=== PATIENT | male | born 1990 ===

== ENCOUNTER 2020-04-14 19:10 | Emergency (ER) | payer MEDICAID, OTHER, SELFPAY ==
[2020-04-14 19:15] VITALS: BP 109/75; PULSE 79; RESP 19; TEMP 36.9; O2SAT 98; BMI 30.8
--- NOTE | 2020-04-14 20:14 | ECG_ITS ---
Test Reason : DIZZINESS Blood Pressure : / mmHG Vent. Rate : 072 BPM Atrial Rate : 072 BPM P-R Int : 158 ms QRS Dur : 088 ms QT Int : 376 ms P-R-T Axes : 058 039 011 degrees QTc Int : 411 ms Normal sinus rhythm Normal ECG When compared with ECG of 22-JUN-2014 19:03, No significant change was found Referred By: Tremayne Melo Electronically Signed By:MARISABEL GONZALEZ
--- NOTE | 2020-04-14 20:14 | CT_ITS ---
EXAMINATION: CT HEAD WITHOUT CONTRAST CLINICAL INFORMATION: Dizziness. COMPARISON: CT head 03/05/2014 TECHNIQUE: Contiguous axial imaging was performed from the skull base to vertex without intravenous administration of contrast. Coronal and sagittal reformatted images are performed at the CT scanner. [This CT examination was performed using dose optimization techniques as appropriate, variously including the following: *Automated exposure control *Adjustment of mA and/or kV according to patient size (this includes techniques or standardized protocols for targeted exams where dose is matched to indication/reason for exam; i.e. extremities or head) *Use of iterative reconstruction technique] DLP: 922 mGy-cm. FINDINGS: There is no evidence of acute intracranial hemorrhage or territorial infarction. No abnormal mass-effect or midline shift is seen. Cruz to white matter differentiation is well preserved. No extra-axial fluid collections are identified. The ventricles are normal in size. There is no abnormal attenuation within the brain parenchyma. There is no osseous abnormality. The mastoid air cells and visualized portions of the paranasal sinuses are well-aerated. CT/CT head/brain wo con IMPRESSION: No acute intracranial pathology.
--- NOTE | 2020-04-14 20:23 | ED.GENADULT ---
HPI - General Adult General Chief complaint: Dizziness Stated complaint: not feeling well Source: patient Mode of arrival: ambulatory Limitations: no limitations History of Present Illness HPI narrative: Patient presents to ED for multiple complaints. Patient states patient states he has been under lot of stress. Patient states he has not slept well for the past 2 weeks. Patient states he from his of 13 years and he has not been able to sleep more than 3 hours a night. Patient states he is not eating and no longer going to gym. Patient states he feels stressed and today he started feeling dizzy. Patient describes dizziness as the room spinning. Patient then states while talking to his she told him some bad news from his and then he passed out couple of seconds and return to consciousness. Denies any significant medical history. Patient states symptoms occurred around 12:00pm. Related Data Previous Rx's Medication Instructions Recorded meclizine 25 mg PO DAILY #20 tab 04/14/20 Allergies Allergy/AdvReac Type Severity Reaction Status Date / Time No Known Allergies Allergy Unverified 12/11/19 18:43 Review of Systems Review of Systems: Yes all other systems are reviewed and are negative Constitutional: Constitutional: Reports as per HPI and Reports no additional constitutional complaints Eyes: Eyes: Reports as per HPI and Reports no additional eye complaints ENT: Reports system reviewed and no additional complaints, except as documented, Reports as per HPI and Reports dizziness Cardiovascular: Cardiovascular: Reports as per HPI and Reports no additional cardiovascular complaints Respiratory: Respiratory: Reports as per HPI and Reports no additional respiratory complaints Gastrointestinal: Gastrointestinal: Reports as per HPI and Reports no additional gastrointestinal complaints Genitourinary: Genitourinary: Reports no additional male genitourinary complaints and Reports as per HPI Musculoskeletal: Musculoskeletal: Reports no additional musculoskeletal complaints and Reports as per HPI Neurologic: Reports system reviewed and no additional complaints, except as documented, Reports as per HPI and Reports dizziness Psychiatric: Psychiatric: Reports no additional psychiatric complaints and Reports as per HPI [facility] Social History Social History Alcohol intake: never Smoking Status: Never smoker Use of substances other than those prescribed or required for medical reasons: No Advance Directives: No Advance Directives Information Provided: No Physical Exam Vital Signs: Vital Signs: Last Vital Signs Temp 98.3 F 04/14/20 22:30 Pulse 75 04/14/20 22:30 Resp 20 04/14/20 22:30 BP 122/69 04/14/20 22:30 Pulse Ox 98 04/14/20 22:30 Body Mass Index 30.8 Const: General: cooperative, healthy appearing, comfortable, no acute distress, well developed, alert, awake and Physically active Orientation/consciousness: patient oriented x3 HENMT: Head: Yes normal to inspection and Yes No palpable skull fracture present Eyes: Other: positive for left horizontal nystagmus Neck: Neck: Yes normal visual inspection, Yes full ROM, Yes no lymphadenopathy, Yes no meningeal signs, Yes trachea midline, Yes supple and No tender Chest: Chest palpation & inspection: normal inspection of the chest and normal palpation of entire chest wall Resp: Effort & Inspection: normal respiratory effort and able to speak in complete sentences Auscultation: clear to auscultation bilaterally Cardio: Jugular venous distension: no JVD Heart sounds: S1 normal heart sound present and S2 normal heart sound present GI: Inspection: Yes normal to inspection Palpation (GI): Soft to palpation, not firm, nontender, no guarding and not rigid : General: No CVA tenderness and Yes no CVA tenderness Back/Spine/Pelvis: Back: no CVA tenderness, No CVA tenderness and No back tenderness Skin: General skin exam: no rashes or lesions noted and elasticity normal Neuro: Other: Negative for facial droop. Negative for slurred speech. Negative pronator drift. Normal gait. Motor strength of all extremities 5+ and equal. Negative Romberg General: patient oriented x3, gait normal, no meningeal signs and CN's II-XI intact bilaterally Cranial nerves: Yes CN's II-XII intact bilaterally Extrem: General: Yes normal to inspection and Yes full ROM Psych: Appearance: grossly normal, well kempt and not disheveled Course Course Course Narrative: History physical exam indicate vasovagal syncope. But due to physical exam of nystagmus will do basic labs and head CT machine is no mass or bleeding although very unlikely. Negative for neuro deficit. Patient also received fluids orthostatics done. COVID swab will be ordered. Reevaluation(s) Reevaluation #1: Patient feels better after fluids and meclizine. Head CT scan negative for any bleed or stroke. Troponin 6 hours after dizziness and syncope is negative. D-dimer negative PERC score 0. COVID swab negative. Patient safe for discharge. Patient was offered to speak to care team freight traffic consultant for outpatient referral for depression, but patient refused. Patient is not suicidal or homicidal. Orthostatics negative. Time: 22:58 Medical Decision Making MDM Narrative Medical decision making narrative: Vasovagal syncope, dizziness, vertigo Lab Data Result diagrams: 04/14/20 20:38 04/14/20 20:38 Labs: Lab Results 04/14/20 04/14/20 04/14/20 Range/Units 20:38 20:38 20:38 WBC 6.8 (4.8-10.8) X10*3/uL RBC 5.87 H (4.60-5.80) X10*6/uL Hgb 16.5 (14.0-18.0) g/dl Hct 48.0 (42-52) % MCV 81.8 (80-98) fL MCH 28.1 (27.0-33.0) pg MCHC 34.4 (31.0-36.0) g/dl RDW 12.7 (11.0-16.0) % Plt Count 314 (160-400) X10*3/uL MPV 9.2 L (9.4-12.4) fL Immature Gran % (Auto) 0.1 (0.0-0.4) % Neut % (Auto) 67.1 (45-73) % Lymph % (Auto) 22.0 (20-40) % [place] % (Auto) 8.6 (2-11) % Eos % (Auto) 1.5 (0-4) % Baso % (Auto) 0.7 (0-2) % Lymph # (Auto) 1.5 (1.2-4.9) X10*3/uL [place] # (Auto) 0.6 (0.1-1.2) X10*3/uL Eos # (Auto) 0.1 (0.0-0.4) X10*3/uL Baso # (Auto) 0.1 (0.0-0.2) X10*3/uL Abs Immat Gran (auto) 0.01 (0.00-0.03) X10*3/uL Absolute Neuts (auto) 4.5 (2.0-8.3) X10*3/uL Absolute Nucleated RBC 0.000 (0.0-0.012) X10*3/uL Nucleated RBC % (auto) 0.0 (0.0-0.2) /100WBC PT 12.9 (10.8-13.0) SEC INR 1.1 (0.9-1.1) APTT 35.3 (24.1-38.0) SEC D-Dimer < 200 NG/ML Sodium 137 (135-145) mmol/L Potassium 4.5 (3.3-5.1) mmol/l Chloride 99 (96-108) mmol/L Carbon Dioxide 30 H (22-29) mmol/L Anion Gap 13 (12-20) BUN 10 (9-16) mg/dL Creatinine 1.01 (0.5-1.4) mg/dL Estim Creat Clear Calc 139.1 Estimated GFR > 60 Random Glucose 107 (60-115) mg/dL Calcium 9.5 (8.4-10.2) mg/dL Magnesium 1.9 (1.6-2.6) mg/dL Total Bilirubin 0.9 (0.0-1.0) mg/dL AST 25 (5-37) U/L ALT 30 (0-40) U/L Alkaline Phosphatase 41 (39-117) U/L Troponin I High Sens (<3.5-35.0) ng/L Total Protein 7.4 (6.5-8.0) g/dL Albumin 4.6 (3.5-5.0) g/dL Ethyl Alcohol mg/dL Coronavirus (PCR) (Negative) Influenza Type A (PCR) (Negative) Influenza Type B (PCR) (Negative) RSV RNA Qual (PCR) (Negative) 04/14/20 04/14/20 04/14/20 Range/Units 20:38 20:38 20:38 WBC (4.8-10.8) X10*3/uL RBC (4.60-5.80) X10*6/uL Hgb (14.0-18.0) g/dl Hct (42-52) % MCV (80-98) fL MCH (27.0-33.0) pg MCHC (31.0-36.0) g/dl RDW (11.0-16.0) % Plt Count (160-400) X10*3/uL MPV (9.4-12.4) fL Immature Gran % (Auto) (0.0-0.4) % Neut % (Auto) (45-73) % Lymph % (Auto) (20-40) % [place] % (Auto) (2-11) % Eos % (Auto) (0-4) % Baso % (Auto) (0-2) % Lymph # (Auto) (1.2-4.9) X10*3/uL [place] # (Auto) (0.1-1.2) X10*3/uL Eos # (Auto) (0.0-0.4) X10*3/uL Baso # (Auto) (0.0-0.2) X10*3/uL Abs Immat Gran (auto) (0.00-0.03) X10*3/uL Absolute Neuts (auto) (2.0-8.3) X10*3/uL Absolute Nucleated RBC (0.0-0.012) X10*3/uL Nucleated RBC % (auto) (0.0-0.2) /100WBC PT (10.8-13.0) SEC INR (0.9-1.1) APTT (24.1-38.0) SEC D-Dimer NG/ML Sodium (135-145) mmol/L Potassium (3.3-5.1) mmol/l Chloride (96-108) mmol/L Carbon Dioxide (22-29) mmol/L Anion Gap (12-20) BUN (9-16) mg/dL Creatinine (0.5-1.4) mg/dL Estim Creat Clear Calc Estimated GFR Random Glucose (60-115) mg/dL Calcium (8.4-10.2) mg/dL Magnesium (1.6-2.6) mg/dL Total Bilirubin (0.0-1.0) mg/dL AST (5-37) U/L ALT (0-40) U/L Alkaline Phosphatase (39-117) U/L Troponin I High Sens < 3.5 (<3.5-35.0) ng/L Total Protein (6.5-8.0) g/dL Albumin (3.5-5.0) g/dL Ethyl Alcohol < 10 mg/dL Coronavirus (PCR) NEGATIVE (Negative) Influenza Type A (PCR) NEGATIVE (Negative) Influenza Type B (PCR) NEGATIVE (Negative) RSV RNA Qual (PCR) NEGATIVE (Negative) ECG Data Interpretation: Normal sinus rhythm. Ventricular rate 72. [place] interval 158. QRS duration 88. QTC 411. Negative STEMI Discharge Plan Discharge Clinical Impression: Vasovagal syncope, Dizziness, Vertigo Patient Disposition: Home, Self-Care Instructions: Vertigo (ED), Syncope (ED), Dizziness (ED) Additional Instructions: Return to the ED immediately headache, dizziness, chest pain, shortness of breath, slurred speech, loss of vision, paralysis, suicidal/homicidal ideation, or any other concerning symptoms. Prescriptions: New meclizine 25 mg tablet 25 mg PO DAILY Qty: 20 RF: 0 Interventions: ED Discharge Assessment Last Done: 04/14/20 23:24 Discharge Date/Time: 04/14/20 23:26 Print Language: Panamanian
[2020-04-14] MEDS: 0.9 % Sodium Chloride 1,000 ML 999 ML IV ×2 (20:44→22:05)
[2020-04-14 20:50] LABS: Basophils Absolute Auto 0.1 X10*3/uL (0.0-0.2); Basophils Percent Auto 0.7 % (0-2); Eosinophils Absolute Auto 0.1 X10*3/uL (0.0-0.4); Eosinophils Percent Auto 1.5 % (0-4); Hemoglobin 16.5 g/dl (14.0-18.0); Imm Gran Abs Auto 0.01 X10*3/uL (0.00-0.03); Imm Gran Pct Auto 0.1 % (0.0-0.4); Lymphocytes Absolute Auto 1.5 X10*3/uL (1.2-4.9); MANUAL DIFF FLAG NO; Mean Corpuscular HGB Conc 34.4 g/dl (31.0-36.0); Mean Corpuscular Hemoglobin 28.1 pg (27.0-33.0); Mean Corpuscular Volume 81.8 fL (80-98); Mean Platelet Volume 9.2 fL (9.4-12.4); Monocytes Absolute Auto 0.6 X10*3/uL (0.1-1.2); Monocytes Percent Auto 8.6 % (2-11); Neutrophils Absolute Auto 4.5 X10*3/uL (2.0-8.3); Neutrophils Percent Auto 67.1 % (45-73); Platelet Count 314 X10*3/uL (160-400); Red Blood Count 5.87 X10*6/uL (4.60-5.80); Red Cell Distribution Width 12.7 % (11.0-16.0); White Blood Count 6.8 X10*3/uL (4.8-10.8)
[2020-04-14 20:56] LABS: INTERNATIONAL NORM RATIO 1.1 (0.9-1.1); Prothrombin Time 12.9 SEC (10.8-13.0)
[2020-04-14 20:58] LABS: Partial Thromboplastin Time 35.3 SEC (24.1-38.0)
[2020-04-14 21:01] LABS: D Dimer < 200 NG/ML
[2020-04-14 21:08] LABS: Ethanol < 10 mg/dL
[2020-04-14 21:10] LABS: Alanine Aminotransferase 30 U/L (0-40); Albumin Level 4.6 g/dL (3.5-5.0); Alkaline Phosphatase 41 U/L (39-117); Anion Gap 13 (12-20); Aspartate Amino Transferase 25 U/L (5-37); Bilirubin Total 0.9 mg/dL (0.0-1.0); Blood Urea Nitrogen 10 mg/dL (9-16); Calcium 9.5 mg/dL (8.4-10.2); Carbon Dioxide 30 mmol/L (22-29); Chloride 99 mmol/L (96-108); Creatinine Clr Calc Pharmacy 139.1; Estimated Glomerular Filt Rate > 60; Glucose Random 107 mg/dL (60-115); Magnesium 1.9 mg/dL (1.6-2.6); Potassium 4.5 mmol/l (3.3-5.1); Sodium 137 mmol/L (135-145); Total Protein 7.4 g/dL (6.5-8.0)
[2020-04-14 21:17] LABS: Troponin-I High Sensitivity < 3.5 ng/L (<3.5-35.0)
[2020-04-14 21:30] LABS: Influenza A PCR NEGATIVE (Negative); Influenza B PCR NEGATIVE (Negative); Resp Syncy Virus RNA Qual PCR NEGATIVE (Negative); SARS COV2 PCR INHOUSE NEGATIVE (Negative)
[2020-04-14 22:25] VITALS: BP 122/69; BP 123/77; PULSE 74; PULSE 78
[2020-04-14 22:28] VITALS: BP 121/83; PULSE 83
[2020-04-14 22:30] VITALS: BP 122/69; PULSE 75; RESP 20; TEMP 36.8; O2SAT 98
[2020-04-14] MEDS: Meclizine HCl 25 MG TABLET PO (23:15)
== END 2020-04-14 23:26 | disposition home or self-care (01) ==
PROVIDERS: Physician Assistant; Emergency Provider Internal Medicine
DX: R55 Syncope and collapse (principal); R42 Dizziness and giddiness; Z79.899 Other long term (current) drug therapy; Z20.822 Contact with and (suspected) exposure to COVID-19
CPT/HCPCS: 0241U; 36415; 70450; 80053; 80320; 83735; 84484; 85025; 85379; 85610; 85730; 93005; 96360; 99284

== ENCOUNTER 2021-03-31 00:27 | Emergency (ER) | payer MEDICAID, SELFPAY ==
--- NOTE | ~2021-03-31 | XR_ITS ---
EXAMINATION: LUMBAR SPINE AND RIGHT HIP. CLINICAL INFORMATION: History of fall. COMPARISON: None TECHNIQUE: 3 views AP pelvis and right hip. 3 views lumbar spine. FINDINGS: LUMBAR SPINE: There is mild straightening of lumbar lordosis. The vertebral heights, alignment and disc heights are normal. No visible acute fracture, dislocation or lytic process seen. SI joints are symmetrical and normal. The paravertebral soft tissues are normal. AP PELVIS AND RIGHT HIP: There is normal symmetry of bilateral hip joints and SI joints. No visible acute fracture, dislocation or lytic process seen. The soft tissues are normal. XR/XR hip RT w PEL1V IMPRESSION: Unremarkable lumbar spine exam. Unremarkable AP pelvis and right hip exam.
--- NOTE | ~2021-03-31 | XR_ITS ---
EXAMINATION: LUMBAR SPINE AND RIGHT HIP. CLINICAL INFORMATION: History of fall. COMPARISON: None TECHNIQUE: 3 views AP pelvis and right hip. 3 views lumbar spine. FINDINGS: LUMBAR SPINE: There is mild straightening of lumbar lordosis. The vertebral heights, alignment and disc heights are normal. No visible acute fracture, dislocation or lytic process seen. SI joints are symmetrical and normal. The paravertebral soft tissues are normal. AP PELVIS AND RIGHT HIP: There is normal symmetry of bilateral hip joints and SI joints. No visible acute fracture, dislocation or lytic process seen. The soft tissues are normal. XR/XR lumbar spine 2-3V IMPRESSION: Unremarkable lumbar spine exam. Unremarkable AP pelvis and right hip exam.
--- NOTE | ~2021-03-31 | XR_ITS ---
EXAMINATION: XR CHEST CLINICAL INFORMATION: Right chest wall pain COMPARISON: 05/25/2015 TECHNIQUE: 2 views of the chest were obtained. FINDINGS: Normal symmetric lung volumes. No parenchymal consolidation. No pleural effusion. No pneumothorax. Cardiomediastinal silhouette and pulmonary vascularity are within normal limits. No acute osseous abnormalities. XR/XR chest 2V IMPRESSION: No acute findings
[2021-03-31 00:58] VITALS: BP 146/87; PULSE 114; RESP 20; TEMP 37.3; O2SAT 95; BMI 41.7
[2021-03-31 06:21] VITALS: BP 106/58; PULSE 78; RESP 20; O2SAT 98
--- NOTE | 2021-03-31 06:44 | ED_ITS ---
HPI - Back Pain/Injury General Chief Complaint: Back Pain/Injury Stated Complaint: Fall down stairs Time Seen by Provider: 03/31/21 04:25 Source: patient Mode of arrival: ambulatory Limitations: no limitations History of Present Illness HPI Narrative: 30-year-old male presents to the department for hours after falling states he was going down the steps at his house fell backwards onto his buttocks. He states he has pain right. He denies fevers chills cough nausea vomiting or having walking having more difficult time sleeping he is not taking anything for the pain. MD elicited complaint: back pain and fall Pertinent past history: recent trauma Related Data Previous Rx's Medication Instructions Recorded meclizine 25 mg tablet 25 mg PO DAILY #20 tab 04/14/20 acetaminophen 325 mg tablet 325 mg PO QID PRN #90 tab 03/31/21 (Tylenol) cyclobenzaprine 5 mg tablet 5 mg PO BEDTIME PRN #20 tab 03/31/21 ibuprofen 400 mg tablet 400 mg PO Q6H PRN #60 tab 03/31/21 lidocaine 5 % topical patch 1 patch TOPICAL DAILY #30 ea 03/31/21 Allergies Allergy/AdvReac Type Severity Reaction Status Date / Time No Known Allergies Allergy Unverified 12/11/19 18:43 Review of Systems Review of Systems: Review of systems: General: Patient denies any fever chills recent illness or falls Musculoskeletal: Back pain denies body aches or other injuries HEENT: denies headache, runny nose, ear pain Respiratory: denies shortness of breath, cough Cardiovascular: no chest pain or palpitations : denies dysuria, frequency Abdomen: no nausea vomiting denies abdominal pain Extremities: no swelling, no pain Skin: no diaphoresis Yes all other systems are reviewed and are negative [facility] Social History Social History Alcohol intake: never Advance Directives: No Advance Directives Information Provided: Yes Physical Exam Vital Signs: Vital Signs: Last Vital Signs Temp 99.2 F 03/31/21 00:58 Pulse 78 03/31/21 06:21 Resp 20 03/31/21 06:21 BP 106/58 L 03/31/21 06:21 Pulse Ox 98 03/31/21 06:21 BMI result Body Mass Index 41.7 Neurological exam: CN II- XII tested. Patient is alert and oriented to person place and time. Patient has no dysphagia or dysarthia, denies good vision in all four vision ritter no nystagmus on exam, good strength to upper and lower extremities with normal reflexes to brachioradialis, wrist, patella and achilles. Negative romberg, good finger to nose and heel to welch. General: Well-appearing well-nourished in no signs of distress HEENT: Normocephalic atraumatic Neck: No signs of JVD, no masses no tenderness or lymphadenopathy Cardiovascular: Regular rate and rhythm Respiratory: Clear to auscultation bilaterally Abdomen: Soft nontender no masses Extremities: Normal pedal pulses no signs of edema Skin: Dry warm no rashes Back: No tenderness full ROM negative straight leg test normal reflex to lower extremity no signs of trauma to the back no tenderness to midline MDM - Back Pain/Injury MDM Narrative Medical decision making narrative: patient with the likely contusion to his back or hip idea next patient needs any imaging the patient is adamant that he needs to know exactly what is going home. I tried to explain to him that he has bruised his back using feels over the next few days he is not taking anything for pain of him some Tylenol and some Toradol and the patient referred x-ray if his right hip pelvis as well as his lumbar spine. Patient now sitting up is able to take his pants and feeling better after Tylenol and Toradol. 0814 XR are negative patient educated on need for follow up. Differential Diagnosis Differential diagnosis: Likely lumbar radiculopathy, sciatica and strain of lumbar region Discharge Plan Discharge Clinical Impression: Strain of lumbar region, Contusion of back Patient Disposition: Home, Self-Care Instructions: Acute Low Back Pain (ED), Contusion in Adults (ED), Back Pain (ED) Additional Instructions: Please use tylenol and ibuprofen for pain. If you have any other concerns please return to the ED. If you can't sleep then try the muscle relaxant Prescriptions: New acetaminophen [Tylenol] 325 mg tablet 325 mg PO QID PRN (Reason: pain) Qty: 90 RF: 0 lidocaine 5 % adhesive patch,medicated 1 patch topical DAILY Qty: 30 RF: 0 ibuprofen 400 mg tablet 400 mg PO Q6H PRN (Reason: Pain) Qty: 60 RF: 0 cyclobenzaprine 5 mg tablet 5 mg PO BEDTIME PRN (Reason: muscle spasm) Qty: 20 RF: 0 No Action meclizine 25 mg tablet 25 mg PO DAILY Qty: 20 RF: 0
--- NOTE | 2021-03-31 06:48 | PC.NURSE ---
at bedside for primary eval.
[2021-03-31] MEDS: Acetaminophen 325 MG TABLET 650 MG PO (06:55)
[2021-03-31] MEDS: Ketorolac Tromethamine 30 MG/ML VIAL 15 MG IM (06:55)
--- NOTE | 2021-03-31 06:58 | PC.NURSE ---
Pt medicated per MAY, aware of plan for lumbar XRay.
[2021-03-31] MEDS: Lidocaine 4 % Patch ADH..PATCH 1 PATCH TRANSDERMA (08:29)
[2021-03-31 09:28] VITALS: BP 142/90; PULSE 71; RESP 14; O2SAT 93
== END 2021-03-31 09:59 | disposition home or self-care (01) ==
PROVIDERS: Emergency Provider Student in an Organized Health Care Education/Training Program
DX: S39.012A Strain of muscle, fascia and tendon of lower back, initial encounter (principal); S30.0XXA Contusion of lower back and pelvis, initial encounter; W10.8XXA Fall (on) (from) other stairs and steps, initial encounter; Y93.9 Activity, unspecified; Y92.038 Other place in apartment as the place of occurrence of the external cause; Y99.9 Unspecified external cause status
CPT/HCPCS: 71046; 72100; 73502; 96372; 99283; 99284; J1885

== ENCOUNTER 2022-09-18 00:33 | Emergency (ER) | payer MEDICAID, SELFPAY ==
--- NOTE | ~2022-09-18 | CT_ITS ---
EXAMINATION: CT ABDOMEN AND PELVIS WITHOUT CONTRAST CLINICAL INFORMATION: Epigastric pain COMPARISON: None available. TECHNIQUE: Multidetector volumetric imaging was performed from the superior aspect of the liver through the pubic symphysis. Sagittal and coronal reformatted images were obtained on the technologist's workstation. This CT examination was performed using dose optimization techniques as appropriate, variously including the following: *Automated exposure control *Adjustment of mA and/or kV according to patient size (this includes techniques or standardized protocols for targeted exams where dose is matched to indication/reason for exam; i.e. extremities or head) *Use of iterative reconstruction technique DLP: 1329 mGy-cm FINDINGS: LUNG BASES: There is platelike atelectasis left lung base. The heart size is normal. LIVER, GALLBLADDER, AND BILIARY TREE: The liver is normal in size, shape, and attenuation. There is hypodense tissue surrounding the gallbladder and the liver likely fatty infiltration. No focal solid hepatic lesion or intrahepatic ductal dilatation seen. The gallbladder is unremarkable with no evidence of radiopaque gallstones, gallbladder wall thickening, or obvious pericholecystic inflammatory changes. PANCREAS: Unremarkable. SPLEEN: Unremarkable. ADRENAL GLANDS: Unremarkable. KIDNEYS AND URETERS: The kidneys are normal in size, shape, and attenuation. No hydronephrosis, hydroureter, or calculi seen. No perinephric stranding. BLADDER: Unremarkable. GASTROINTESTINAL TRACT: There is scattered stool and gas seen throughout the colon without distention. The small bowel loops are normal caliber. Appendix is not visualized. ABDOMINAL WALL: No bony abnormality seen. LYMPH NODES: Again visualized is a left upper quadrant mass likely arising from the spleen. Versus malignant. Mild colonic diverticulosis without diverticulitis VASCULAR: Unremarkable. PELVIC VISCERA: No aggressive lytic or sclerotic process seen. Mild ventral spondylosis L4-L5 disc level. OSSEOUS STRUCTURES: Unremarkable. CT/CT abdomen pelvis wo IV con IMPRESSION: No visible radiopaque stone or hydroureteronephrosis. No abnormality seen in the epigastric region. Fleischner guidelines were followed.
--- NOTE | 2022-09-18 00:35 | ECG_ITS ---
Test Reason : CHEST PAIN Blood Pressure : / mmHG Vent. Rate : 080 BPM Atrial Rate : 000 BPM P-R Int : 000 ms QRS Dur : 092 ms QT Int : 370 ms P-R-T Axes : 000 022 011 degrees QTc Int : 426 ms Artifact in tracing Normal sinus rhythm probably normal EKG When compared with ECG of 14-APR-2020 21:06, No significant changes seen Referred By: Generic ED Physician Electronically Signed By:MARISABEL GONZALEZ
[2022-09-18 00:49] VITALS: BP 188/119; PULSE 81; RESP 18; TEMP 36.4; O2SAT 96; BMI 43.6
[2022-09-18 01:09] VITALS: BP 196/128; PULSE 80; PULSE 81; RESP 25; TEMP 36.7; O2SAT 98
[2022-09-18 01:12] LABS: MANUAL DIFF FLAG NO
[2022-09-18 01:13] LABS: Basophils Absolute Auto 0.1 X10*3/uL (0.0-0.2); Basophils Percent Auto 1.4 % (0-2); Eosinophils Absolute Auto 0.3 X10*3/uL (0.0-0.4); Eosinophils Percent Auto 5.1 % (0-4); Hematocrit 45.7 % (42.0-52.0); Hemoglobin 16.2 g/dl (14.0-18.0); Imm Gran Abs Auto 0.02 X10*3/uL (0.00-0.03); Imm Gran Pct Auto 0.3 % (0.0-0.4); Lymphocytes Absolute Auto 1.9 X10*3/uL (1.2-4.9); Lymphocytes Percent Auto 28.4 % (20-40); Mean Corpuscular HGB Conc 35.4 g/dl (31.0-36.0); Mean Corpuscular Hemoglobin 28.4 pg (27.0-33.0); Mean Platelet Volume 9.6 fL (9.4-12.4); Monocytes Absolute Auto 0.7 X10*3/uL (0.1-1.2); Monocytes Percent Auto 10.1 % (2-11); Neutrophils Absolute Auto 3.6 x10*3/uL (2.0-8.3); Neutrophils Percent Auto 54.7 % (45-73); Platelet Count 299 X10*3/uL (160-400); Red Blood Count 5.71 X10*6/uL (4.60-5.80); White Blood Count 6.7 X10*3/uL (4.8-10.8)
--- NOTE | 2022-09-18 01:21 | PC.NURSE ---
Assumed care of PT. PT endorsing RUQ pain 10/10. Previously noted in traige chest pain, but now denies. PT notes that he drinks 8 bottles of whiskey every month. BP 196/128 HR 80. aware.
[2022-09-18 01:26] LABS: Alanine Aminotransferase 145 U/L (0-40); Albumin Level 4.3 g/dL (3.5-5.0); Alkaline Phosphatase 46 U/L (39-117); Anion Gap 15 (12-20); Aspartate Amino Transferase 60 U/L (5-37); Bilirubin Total 0.7 mg/dL (0.0-1.0); Blood Urea Nitrogen 14 mg/dL (9-16); Calcium 9.7 mg/dL (8.4-10.2); Carbon Dioxide 24 mmol/L (22-29); Chloride 105 mmol/L (96-108); Creatinine Clr Calc Pharmacy 168.4; Estimated Glomerular Filt Rate > 60; Glucose Random 129 mg/dL (60-115); Potassium 4.3 mmol/L (3.3-5.1); Sodium 140 mmol/L (135-145); Total Protein 7.4 g/dL (6.5-8.0)
[2022-09-18 01:32] LABS: Troponin-I High Sensitivity 6.1 ng/L (<3.5-35.0)
--- NOTE | 2022-09-18 02:58 | ED.CHESTPAIN ---
HPI - Chest Pain General Chief Complaint: Chest Pain Stated Complaint: cp/heart pain Time Seen by Provider: 09/18/22 01:07 History of Present Illness HPI narrative: Patient is a 32-year-old male present today with having questionable chest pain. The pain lasts a few minutes is not associated with any shortness of breath. Patient does have a history of borderline prediabetes. He has not had follow-up for this. He is also overweight. Question history of hypertension. Positive history of vaping. Never had a heart attack never had a stroke. Patient also complaining of abdominal pain. The abdominal pain is over the right upper quadrant, epigastric area. It is fairly constant. Patient states that he drinks 10 bottles of whiskey per month. No fever no chills. No bloody stool. No vomiting. Patient from home. No abdominal surgery done in the past. Related Data Previous Rx's Medication Instructions Recorded meclizine 25 mg tablet 25 mg PO DAILY dizziness #20 tabs 04/14/20 acetaminophen 325 mg tablet 325 mg PO QID PRN pain #90 tabs 03/31/21 (Tylenol) cyclobenzaprine 5 mg tablet 5 mg PO BEDTIME PRN muscle spasm 03/31/21 #20 tabs ibuprofen 400 mg tablet 400 mg PO Q6H PRN Pain #60 tabs 03/31/21 lidocaine 5 % topical patch 1 patch topical DAILY back pain 03/31/21 #30 ea pantoprazole 40 mg tablet,delayed 40 mg PO DAILY #14 tabs 09/18/22 release (Protonix) Allergies Allergy/AdvReac Type Severity Reaction Status Date / Time No Known Allergies Allergy Unverified 09/18/22 01:01 Review of Systems Review of Systems: Positive abdominal pain Yes all other systems are reviewed and are negative [facility] Past Medical History Attestation statement: The following information was validated with the patient. Social History Social History Alcohol intake: current Alcohol intake frequency: 3 or more drinks per day Alcohol type: hard liquor Smoked in Last 30 Days: Yes Use of substances other than those prescribed or required for medical reasons: No Advance Directives: No Advance Directives Information Provided: Yes Physical Exam Vital Signs: Vital Signs: Last Vital Signs Temp 98.0 F 09/18/22 01:09 Pulse 82 09/18/22 03:03 Resp 14 09/18/22 03:03 BP 166/109 H 09/18/22 03:03 Pulse Ox 97 09/18/22 03:03 O2 Del Method Room Air 09/18/22 03:03 BMI result Body Mass Index 43.6 Appearance: Alert. Oriented X3. No acute distress. Eyes: Pupils equal, round and reactive to light. ENT: Pharynx normal. Neck: Normal inspection. Neck supple. No lymph nodes noted. No crepitus CVS: Normal heart rate and rhythm. Pulses normal. Normal S1 and S2 Respiratory: No respiratory distress. Breath sounds normal. No Wheezing. No rales Abdomen: Soft and nontender. No rigidity. No distention. good BS x4 Skin: Skin warm and dry. Normal skin color. Normal skin turgor. Extremities: No lower extremity edema. Neurovascular intact to all extremities. No Lacerations. No Rash Neuro: Oriented X 3. No motor deficit. No sensory deficit. Moving all extermities. No slurred speech Medical Decision Making Medical Decision Making MDM Narrative: patient presents today with having nonspecific chest pain. Two sets of cardiac enzymes negative. The patient is 32 years old. Does have a history of hypertension, history of vaping. My interpretation of his EKG showed a sinus pattern heart rate is 70 MA QRS QT within normal refers no acute ST segment elevation. Patient unlikely to have cardiac causes. Patient's lipase is normal no evidence for pancreatitis. LFTs are reflective of likely fatty liver. CT scan of the abdomen pelvis did not show any acute evidence of abscess, perforation, diverticulitis, appendicitis. Will discharge patient home on PPI. For patient follow-up with Cardiology on an outpatient basis. Will request patient to stop drinking alcohol. Differential Diagnosis Gastritis, ACS, obstruction, biliary issues, diverticulitis, appendicitis Lab Data [facility] Lab Attestation statement: I reviewed the patient's lab results. 09/18/22 01:03 09/18/22 01:03 Labs: Lab Results 09/18/22 09/18/22 09/18/22 Range/Units 01:03 01:03 01:03 WBC 6.7 (4.8-10.8) X10*3/uL RBC 5.71 (4.60-5.80) X10*6/uL Hgb 16.2 (14.0-18.0) g/dl Hct 45.7 (42.0-52.0) % MCV 80.0 (80.0-98.0) fL MCH 28.4 (27.0-33.0) pg MCHC 35.4 (31.0-36.0) g/dl RDW 13.0 (11.0-16.0) % Plt Count 299 (160-400) X10*3/uL MPV 9.6 (9.4-12.4) fL Immature Gran % (Auto) 0.3 (0.0-0.4) % Neut % (Auto) 54.7 (45-73) % Lymph % (Auto) 28.4 (20-40) % [place] % (Auto) 10.1 (2-11) % Eos % (Auto) 5.1 H (0-4) % Baso % (Auto) 1.4 (0-2) % Lymph # (Auto) 1.9 (1.2-4.9) X10*3/uL [place] # (Auto) 0.7 (0.1-1.2) X10*3/uL Eos # (Auto) 0.3 (0.0-0.4) X10*3/uL Baso # (Auto) 0.1 (0.0-0.2) X10*3/uL Abs Immat Gran (auto) 0.02 (0.00-0.03) X10*3/uL Absolute Neuts (auto) 3.6 (2.0-8.3) x10*3/uL Absolute Nucleated RBC 0.000 (0.0-0.012) X10*3/uL Nucleated RBC % (auto) 0.0 (0.0-0.2) /100WBC Sodium 140 (135-145) mmol/L Potassium 4.3 (3.3-5.1) mmol/L Chloride 105 (96-108) mmol/L Carbon Dioxide 24 (22-29) mmol/L Anion Gap 15 (12-20) BUN 14 (9-16) mg/dL Creatinine 0.97 (0.5-1.4) mg/dL Estim Creat Clear Calc 168.4 Estimated GFR > 60 Random Glucose 129 H (60-115) mg/dL Calcium 9.7 (8.4-10.2) mg/dL Total Bilirubin 0.7 (0.0-1.0) mg/dL AST 60 H (5-37) U/L ALT 145 H (0-40) U/L Alkaline Phosphatase 46 (39-117) U/L Troponin I High Sens 6.1 (<3.5-35.0) ng/L Total Protein 7.4 (6.5-8.0) g/dL Albumin 4.3 (3.5-5.0) g/dL Lipase 26 (8-78) U/L Ethyl Alcohol < 10 mg/dL 09/18/22 Range/Units 03:31 WBC (4.8-10.8) X10*3/uL RBC (4.60-5.80) X10*6/uL Hgb (14.0-18.0) g/dl Hct (42.0-52.0) % MCV (80.0-98.0) fL MCH (27.0-33.0) pg MCHC (31.0-36.0) g/dl RDW (11.0-16.0) % Plt Count (160-400) X10*3/uL MPV (9.4-12.4) fL Immature Gran % (Auto) (0.0-0.4) % Neut % (Auto) (45-73) % Lymph % (Auto) (20-40) % [place] % (Auto) (2-11) % Eos % (Auto) (0-4) % Baso % (Auto) (0-2) % Lymph # (Auto) (1.2-4.9) X10*3/uL [place] # (Auto) (0.1-1.2) X10*3/uL Eos # (Auto) (0.0-0.4) X10*3/uL Baso # (Auto) (0.0-0.2) X10*3/uL Abs Immat Gran (auto) (0.00-0.03) X10*3/uL Absolute Neuts (auto) (2.0-8.3) x10*3/uL Absolute Nucleated RBC (0.0-0.012) X10*3/uL Nucleated RBC % (auto) (0.0-0.2) /100WBC Sodium (135-145) mmol/L Potassium (3.3-5.1) mmol/L Chloride (96-108) mmol/L Carbon Dioxide (22-29) mmol/L Anion Gap (12-20) BUN (9-16) mg/dL Creatinine (0.5-1.4) mg/dL Estim Creat Clear Calc Estimated GFR Random Glucose (60-115) mg/dL Calcium (8.4-10.2) mg/dL Total Bilirubin (0.0-1.0) mg/dL AST (5-37) U/L ALT (0-40) U/L Alkaline Phosphatase (39-117) U/L Troponin I High Sens 4.7 (<3.5-35.0) ng/L Total Protein (6.5-8.0) g/dL Albumin (3.5-5.0) g/dL Lipase (8-78) U/L Ethyl Alcohol mg/dL Independent Interpretation I performed an independent interpretation of an: CT Scan Interpretation: grossly no obstruction no abscess no perforation Radiology Impression Discussion of test interpretation with radiology: I have reviewed the radiologist's reading. Chronic Conditions borderline diabetes, hypertension Discharge Plan Discharge Clinical Impression: Chest pain, Abdominal pain Patient Disposition: Home, Self-Care Instructions: Chest Pain (DC), Abdominal Pain (ED) Additional Instructions: please stop drinking alcohol. Prescriptions: New pantoprazole [Protonix] 40 mg tablet,delayed release (DR/EC) 40 mg PO DAILY Qty: 14 0RF No Action meclizine 25 mg tablet 25 mg PO DAILY Qty: 20 0RF acetaminophen [Tylenol] 325 mg tablet 325 mg PO QID PRN (Reason: pain) Qty: 90 0RF lidocaine 5 % adhesive patch,medicated 1 patch topical DAILY Qty: 30 0RF Rx Instructions: leave on most painful area for up to 12 hrs ibuprofen 400 mg tablet 400 mg PO Q6H PRN (Reason: Pain) Qty: 60 0RF cyclobenzaprine 5 mg tablet 5 mg PO BEDTIME PRN (Reason: muscle spasm) Qty: 20 0RF Referrals: [facility] [Physician] - 09/20/22 ( Blood pressure recheck in 48 hours) Benny Rouse MD [Physician] - 09/21/22 Print Language: Lao
[2022-09-18 03:03] VITALS: BP 166/109; PULSE 82; RESP 14; O2SAT 97
[2022-09-18 03:11] LABS: Ethanol < 10 mg/dL; Lipase 26 U/L (8-78)
[2022-09-18 03:58] LABS: Troponin-I High Sensitivity 4.7 ng/L (<3.5-35.0)
[2022-09-18 04:13] VITALS: BP 164/93; PULSE 78; RESP 18; TEMP 36.4; O2SAT 97
== END 2022-09-18 04:31 | disposition home or self-care (01) ==
PROVIDERS: Emergency Provider Emergency Medicine Emergency Medical Services
DX: R07.9 Chest pain, unspecified (principal); R10.13 Epigastric pain; I10 Essential (primary) hypertension; Z79.899 Other long term (current) drug therapy
CPT/HCPCS: 36415; 74176; 80053; 80307; 83690; 84484; 85025; 93005; 99284; 99285

== ENCOUNTER 2022-10-07 09:36 | Emergency (ER) | payer MEDICAID, SELFPAY ==
--- NOTE | 2022-10-07 | ECG_ITS ---
Test Reason : HYPERTENSION Blood Pressure : / mmHG Vent. Rate : 084 BPM Atrial Rate : 084 BPM P-R Int : 156 ms QRS Dur : 090 ms QT Int : 368 ms P-R-T Axes : 051 023 005 degrees QTc Int : 434 ms Normal sinus rhythm Minimal voltage criteria for LVH, may be normal variant ( R in aVL ) Nonspecific T wave abnormality Abnormal ECG When compared with ECG of 18-SEP-2022 00:39, No significant change was found Referred By: Generic ED Physician Electronically Signed By:GETACHEW CHOUDHARY MD
--- NOTE | ~2022-10-07 | CT_ITS ---
EXAMINATION: CT HEAD WITHOUT CONTRAST CLINICAL INFORMATION: Headache. Hypertension. COMPARISON: CT head dated 04/14/2020. TECHNIQUE: Contiguous axial imaging was performed from the skull base to vertex without intravenous administration of contrast. This CT examination was performed using dose optimization techniques as appropriate, variously including the following: *Automated exposure control *Adjustment of mA and/or kV according to patient size (this includes techniques or standardized protocols for targeted exams where dose is matched to indication/reason for exam; i.e. extremities or head) *Use of iterative reconstruction technique DLP: 862 mGy-cm FINDINGS: No acute intracranial hemorrhage. No mass effect or midline shift. No parenchymal lesion. The martinez-white differentiation is maintained. No extra-axial fluid collection. The ventricles and sulci are unremarkable. The basal cisterns are patent. The calvarium is intact. The visualized paranasal sinuses and mastoid air cells are clear. CT/CT head/brain wo IV con IMPRESSION: No intracranial hemorrhage or mass effect.
--- NOTE | ~2022-10-07 | XR_ITS ---
EXAMINATION: XR CHEST CLINICAL INFORMATION: Chest pain. Shortness of breath. COMPARISON: Chest radiograph dated 03/31/2021. TECHNIQUE: Frontal view of the chest was obtained. FINDINGS: The lungs are clear. The cardiomediastinal silhouette is normal in size. There is no pleural effusion or pneumothorax. No acute osseous abnormality. XR/XR chest 1V IMPRESSION: No acute cardiopulmonary findings.
--- NOTE | ~2022-10-07 | US_ITS ---
EXAMINATION: US ABDOMEN LIMITED CLINICAL INFORMATION: Right upper quadrant pain. Nausea and vomiting. COMPARISON: CT abdomen/pelvis dated 09/18/2022. TECHNIQUE: Real-time imaging of the right upper quadrant and right kidney. FINDINGS: GALLBLADDER: Nonmobile gallstone versus polyp measuring up to 0.6 cm. No gallbladder wall thickening or pericholecystic free fluid to suggest acute cholecystitis. Mild right upper quadrant tenderness during the examination. COMMON BILE DUCT: Normal in caliber measuring 0.4 cm in diameter. RIGHT KIDNEY: Normal. No hydronephrosis. No renal calculi or focal parenchymal lesions. The kidney measures 13.5 cm in maximum dimension. FREE FLUID: None. US/US abdomen limited IMPRESSION: Nonmobile gallstone versus polyp measuring 0.6 cm. No gallbladder wall thickening or pericholecystic free fluid to suggest acute cholecystitis. Mild right upper quadrant tenderness during the examination.
[2022-10-07 09:40] VITALS: BP 202/122; PULSE 87; RESP 18; TEMP 36.2; O2SAT 95; BMI 47.0
--- NOTE | 2022-10-07 09:51 | ED.GENADULT ---
HPI - General Adult General Chief complaint: General Medical Stated complaint: ? high BP , nauseas Time Seen by Provider: 10/07/22 09:51 Source: patient, RN notes reviewed and old records reviewed Mode of arrival: ambulatory History of Present Illness HPI narrative: 32-year-old male with a past medical history ?HTN, borderline prediabetic, presenting to the ED complaining of RUQ/epigastric abdominal pain, nausea, vomiting, CP, RAM & feeling off balance since about 08:00AM. Admits to similar symptoms 1 month ago and was evaluated in our ED. Denies currently being on antihypertensives. Denies fever/chills, vision change/loss, SOB, diarrhea, dysuria/hematuria Onset (ago): hour(s) Related Data Previous Rx's Medication Instructions Recorded meclizine 25 mg tablet 25 mg PO DAILY dizziness #20 tabs 04/14/20 acetaminophen 325 mg tablet 325 mg PO QID PRN pain #90 tabs 03/31/21 (Tylenol) cyclobenzaprine 5 mg tablet 5 mg PO BEDTIME PRN muscle spasm 03/31/21 #20 tabs ibuprofen 400 mg tablet 400 mg PO Q6H PRN Pain #60 tabs 03/31/21 lidocaine 5 % topical patch 1 patch topical DAILY back pain 03/31/21 #30 ea pantoprazole 40 mg tablet,delayed 40 mg PO DAILY #14 tabs 09/18/22 release (Protonix) aluminum-mag hydroxide-simethicone 5 ml PO 5XD PRN dyspepsia #30 mL 10/07/22 200 mg-200 mg-20 mg/5 mL oral susp (Maalox Advanced) amlodipine 10 mg tablet 10 mg PO DAILY 30 days #30 tabs 10/07/22 famotidine 20 mg tablet (Pepcid) 20 mg PO DAILY #14 tabs 10/07/22 Allergies Allergy/AdvReac Type Severity Reaction Status Date / Time No Known Allergies Allergy Verified 10/07/22 09:40 Review of Systems Review of Systems: Constitutional: No Fever, No Chills, No Fatigue, No Malaise ENT/Mouth: No Ear Pain, No Nasal Congestion, No sore throat, No Rhinorrhea, No Swallowing Difficulty Eyes: No Eye Pain, No Swelling, No Redness, No Vision Changes Cardiovascular: No Chest Pain, No SOB, No Dyspnea on Exertion, No Edema, No Palpitations Respiratory: No Cough, No Sputum, No Dyspnea Gastrointestinal: + Nausea, + Vomiting, No Diarrhea, No Constipation, + Abdominal pain Genitourinary: No Dysuria, No Urinary Frequency, No Hematuria, No Urinary Incontinence/retention, + Flank Pain Musculoskeletal: No joint pain, No Myalgias, No Joint Swelling Skin: No Skin Lesions, No rash Neuro: No Weakness, No Numbness, No Paresthesias, No Loss of Consciousness, + Dizziness, + Headache Yes all other systems are reviewed and are negative Constitutional: Constitutional: Reports as per HPI Neurologic: Denies Abnormal speech present [facility] Past Medical History Attestation statement: The following information was validated with the patient. Source: old records reviewed Social History Social History Alcohol intake: current Alcohol intake frequency: holidays/special occasions only Alcohol type: hard liquor Smoked in Last 30 Days: Yes Use of substances other than those prescribed or required for medical reasons: No Advance Directives: No Physical Exam ED Vital Signs: Vital Signs - 24 hr 10/07/22 09:40 10/07/22 10:03 10/07/22 11:48 Temperature 97.2 F Pulse Rate 87 118 H 78 Respiratory Rate 18 18 16 Blood Pressure 202/122 H 165/93 H 174/111 H Pulse Oximetry 95 97 96 Oxygen Delivery Method Room Air Room Air Room Air 10/07/22 12:22 10/07/22 13:13 10/07/22 15:02 Temperature Pulse Rate 75 75 Respiratory Rate 18 Blood Pressure 159/103 H 171/105 H 153/97 H Pulse Oximetry 96 Oxygen Delivery Method Nasal Cannula BMI result Body Mass Index 47.0 Const General: cooperative, healthy appearing, no acute distress, alert and awake Orientation/consciousness: patient oriented x3 Limitations: no limitations HENMT Head: Yes normal to inspection and Yes atraumatic Ears: hearing grossly normal bilaterally General nose exam: Normal external nose present Face and sinus: Yes normal facial exam Throat: Yes posterior oropharynx normal, Yes tonsils normal and Yes uvula midline Eyes General: appearance normal, both eyes and all related structures Pupils: Equal, round and reactive pupils present EOM: EOMs intact bilaterally Neck Neck: Yes normal visual inspection and Yes no meningeal signs Resp Effort & Inspection: normal respiratory effort and no respiratory distress Auscultation: clear to auscultation bilaterally, no rales, no rhonchi and no wheezes Cardio Rate: regular rate Heart sounds: S1 normal heart sound present and S2 normal heart sound present GI Inspection: Yes normal to inspection Palpation (GI): Soft to palpation, Tenderness to palpation present (GI) in the epigastrum and in the RUQ; with no rebound tenderness, no guarding and not rigid General: Yes CVA tenderness on the right Back/Spine/Pelvis Back: CVA tenderness Skin Rashes: no rashes Wounds: no wounds Neuro General: patient oriented x3, gait normal, tone normal, moves all extremities, no meningeal signs, no focal motor deficits and CN's II-XI intact bilaterally Cranial nerves: Yes CN's II-XII intact bilaterally, Yes Equal, round and reactive pupils present and Yes Bilaterally intact EOM present Cognition (Neuro): normal cognition Speech: No Abnormal speech present Gait exam (Neuro): Normal gait present Motor exam (neuro): 5/5 motor strength present throughout, Pronator motor function not present and no tremor noted Coordination: [id number] test normal Romberg Test: Negative Extrem General: Yes normal to inspection and Yes no pedal edema Course Course Course Narrative: -1217--no leukocytosis. Chronically elevated AST/ALT. Initial troponin 5.0 > will obtain 3 hour repeat XR chest 1V IMPRESSION: No acute cardiopulmonary findings. CT head/brain wo IV con IMPRESSION: No intracranial hemorrhage or mass effect. US abdomen limited IMPRESSION: Nonmobile gallstone versus polyp measuring 0.6 cm. No gallbladder wall thickening or pericholecystic free fluid to suggest acute cholecystitis. Mild right upper quadrant tenderness during the examination. -1500--patient reports symptomatic improvement, has been sleeping comfortably on multiple re-evaluations. States he is now hungry. Repeat troponin equivocal, mi unlikely. BP improved to 153/97 after a total of 10 mg of amlodipine, will initiate patient on outpatient. Discussed needed close follow-up with PCP/GI Results discussed with patient including worrisome signs and symptoms and strict return precautions, and when to return to the emergency department. They verbalized understanding and feel safe for discharge at this time. Medications Administered Discontinued Medications Generic Name Dose Route Start Last Admin Trade Name Freq PRN Reason Stop Dose Admin Acetaminophen/Butalbital/Caffeine 1 tab 10/07/22 15:07 10/07/22 15:18 Butalb/Acetamin/Caff 50/325/40 Tablet PO 10/07/22 15:08 1 tab ONCE ONE Administration Al Hydroxide/Mg Hydroxide 30 ml 10/07/22 11:18 10/07/22 11:46 Magnesium Hydrox/Alum Hydrox 30 Ml Oral.Susp PO 10/07/22 11:19 30 ml ONCE ONE Administration Amlodipine Besylate 5 mg 10/07/22 10:06 10/07/22 10:17 Amlodipine Besylate 5 Mg Tablet PO 10/07/22 10:07 5 mg ONCE ONE Administration Protocol Amlodipine Besylate 5 mg 10/07/22 12:16 10/07/22 12:24 Amlodipine Besylate 5 Mg Tablet PO 10/07/22 12:17 5 mg ONCE ONE Administration Protocol Famotidine 20 mg 10/07/22 11:18 10/07/22 11:46 Famotidine 20 Mg Tablet PO 10/07/22 11:19 20 mg ONCE ONE Administration Medical Decision Making Medical Decision Making MDM Narrative: 32-year-old male with a past medical history ?HTN, borderline prediabetic, presenting to the ED complaining of RUQ/epigastric abdominal pain, nausea, vomiting, CP, RAM & feeling off balance since about 08:00AM. On exam hypertensive, NAD, abdomen soft with epigastric/RUQ night CVA tenderness, no rebound or guarding, lungs CTA, no focal neuro deficits, ambulating with steady gait/no ataxia. Concern for hypertension due to undiagnosed HTN/PCP noncompliance vs pain response vs hypertensive urgency/emergency vs cholecystitis/lithiasis or pancreatitis vs renal stone/pyelo. Rule out ICH although of lower suspicion. Plan: EKG, labs, UA, CXR, head CT, abdomen ultrasound, p.o. amlodipine Labs and CT reviewed from 09/18/2022 which were unremarkable Please refer to course for remaining clinical decision making, interpretation of labs/imaging results, and discussions with consultants and/or family members. Differential Diagnosis Differential Diagnoses: The differential diagnosis associated with the presentation includes As above Admission/Observation Consideration of admission/observation: Escalation of care including admission/observation considered Lab Data [facility] Lab Attestation statement: I reviewed the patient's lab results. 10/07/22 11:04 10/07/22 11:04 Labs: Lab Results 0710/07/22 10/07/22 Range/Units 11:04 11:04 11:04 WBC 7.0 (4.8-10.8) X10*3/uL RBC 5.55 (4.60-5.80) X10*6/uL Hgb 15.6 (14.0-18.0) g/dl Hct 44.3 (42.0-52.0) % MCV 79.8 L (80.0-98.0) fL MCH 28.1 (27.0-33.0) pg MCHC 35.2 (31.0-36.0) g/dl RDW 12.8 (11.0-16.0) % Plt Count 291 (160-400) X10*3/uL MPV 9.6 (9.4-12.4) fL Immature Gran % (Auto) 0.6 H (0.0-0.4) % Neut % (Auto) 68.3 (45-73) % Lymph % (Auto) 17.8 L (20-40) % [place] % (Auto) 9.8 (2-11) % Eos % (Auto) 2.4 (0-4) % Baso % (Auto) 1.1 (0-2) % Lymph # (Auto) 1.3 (1.2-4.9) X10*3/uL [place] # (Auto) 0.7 (0.1-1.2) X10*3/uL Eos # (Auto) 0.2 (0.0-0.4) X10*3/uL Baso # (Auto) 0.1 (0.0-0.2) X10*3/uL Abs Immat Gran (auto) 0.04 H (0.00-0.03) X10*3/uL Absolute Neuts (auto) 4.8 (2.0-8.3) x10*3/uL Absolute Nucleated RBC 0.000 (0.0-0.012) X10*3/uL Nucleated RBC % (auto) 0.0 (0.0-0.2) /100WBC Sodium 137 (135-145) mmol/L Potassium 4.2 (3.3-5.1) mmol/L Chloride 104 (96-108) mmol/L Carbon Dioxide 23 (22-29) mmol/L Anion Gap 14 (12-20) BUN 11 (9-16) mg/dL Creatinine 1.00 (0.5-1.4) mg/dL Estim Creat Clear Calc 170.4 Estimated GFR > 60 Random Glucose 157 H (60-115) mg/dL Calcium 9.2 (8.4-10.2) mg/dL Magnesium 1.8 (1.6-2.6) mg/dL Total Bilirubin 0.5 (0.0-1.0) mg/dL AST 81 H (5-37) U/L ALT 157 H (0-40) U/L Alkaline Phosphatase 46 (39-117) U/L Troponin I High Sens (<3.5-35.0) ng/L Total Protein 7.2 (6.5-8.0) g/dL Albumin 4.2 (3.5-5.0) g/dL Lipase 22 (8-78) U/L 10/07/22 10/07/22 Range/Units 11:04 14:00 WBC (4.8-10.8) X10*3/uL RBC (4.60-5.80) X10*6/uL Hgb (14.0-18.0) g/dl Hct (42.0-52.0) % MCV (80.0-98.0) fL MCH (27.0-33.0) pg MCHC (31.0-36.0) g/dl RDW (11.0-16.0) % Plt Count (160-400) X10*3/uL MPV (9.4-12.4) fL Immature Gran % (Auto) (0.0-0.4) % Neut % (Auto) (45-73) % Lymph % (Auto) (20-40) % [place] % (Auto) (2-11) % Eos % (Auto) (0-4) % Baso % (Auto) (0-2) % Lymph # (Auto) (1.2-4.9) X10*3/uL [place] # (Auto) (0.1-1.2) X10*3/uL Eos # (Auto) (0.0-0.4) X10*3/uL Baso # (Auto) (0.0-0.2) X10*3/uL Abs Immat Gran (auto) (0.00-0.03) X10*3/uL Absolute Neuts (auto) (2.0-8.3) x10*3/uL Absolute Nucleated RBC (0.0-0.012) X10*3/uL Nucleated RBC % (auto) (0.0-0.2) /100WBC Sodium (135-145) mmol/L Potassium (3.3-5.1) mmol/L Chloride (96-108) mmol/L Carbon Dioxide (22-29) mmol/L Anion Gap (12-20) BUN (9-16) mg/dL Creatinine (0.5-1.4) mg/dL Estim Creat Clear Calc Estimated GFR Random Glucose (60-115) mg/dL Calcium (8.4-10.2) mg/dL Magnesium (1.6-2.6) mg/dL Total Bilirubin (0.0-1.0) mg/dL AST (5-37) U/L ALT (0-40) U/L Alkaline Phosphatase (39-117) U/L Troponin I High Sens 5.0 4.4 (<3.5-35.0) ng/L Total Protein (6.5-8.0) g/dL Albumin (3.5-5.0) g/dL Lipase (8-78) U/L Independent Interpretation I performed an independent interpretation of an: EKG (EKG normal sinus rhythm rate of 84. AL interval 156. QTC 434. No significant change when compared to prior. No STEMI) Radiology Impression Discussion of test interpretation with radiology: I have reviewed the radiologist's reading. External Record Review External record reviewed: Inpatient record, Office record, Outpatient record, Prior outpatient labs, Prior outpatient radiology, Primary care record and Outside ED record Tests considered The following testing was considered but not selected: As above Chronic Conditions Patient?s care impacted by: Diabetes (Prediabetic) Social Determinants Patient?s care significantly limited by Social Determinants of Health including: Problems related to primary support group and Other Social Determinant of Health Discharge Plan Discharge Clinical Impression: Uncontrolled hypertension, Abdominal pain, right upper quadrant, Headache Patient Disposition: Home, Self-Care Instructions: Heart Healthy Diet (ED), Acute Headache (DC), Abdominal Pain (ED), Hypertension (ED) Additional Instructions: Your blood work is reassuring Your head CT and x-ray were unremarkable. Your ultrasound shows a nonmobile gallstone versus polyp You need to follow-up with Gastroenterology and your primary care doctor your blood pressure was out of control, amlodipine will help control your blood pressure, you need to have this monitored closely If you develop constant worsening headache, chest pain/shortness of breath, abdominal pain, persistent nausea/vomiting return to ED Beatty an?lisis de katarzyna es tranquilizador. La tomograf?a computarizada y la radiograf?a de beatty willie no tuvieron nada especial. Beatty ultrasonido muestra un c?lculo biliar no m?felipe versus un p?lipo Necesita seguimiento con Gastroenterolog?a y beatty m?dico de atenci?n primaria beatty presi?n arterial estaba fuera de control, la amlodipina ayudar? a controlar beatty presi?n arterial, debe controlarla de cerca Si presenta un empeoramiento rashida del dolor de willie, dolor tor?cico/dificultad para respirar, dolor abdominal, n?useas/v?mitos persistentes, regrese al servicio de urgencias. Prescriptions: New amlodipine 10 mg tablet 10 mg PO DAILY 30 Days Qty: 30 0RF alum-mag hydroxide-simeth [Maalox Advanced] 200-200-20 mg/5 mL suspension 5 ml PO 5XD PRN (Reason: dyspepsia) Qty: 30 0RF Rx Instructions: administer between meals and at bedtime famotidine [Pepcid] 20 mg tablet 20 mg PO DAILY Qty: 14 0RF No Action meclizine 25 mg tablet 25 mg PO DAILY Qty: 20 0RF acetaminophen [Tylenol] 325 mg tablet 325 mg PO QID PRN (Reason: pain) Qty: 90 0RF lidocaine 5 % adhesive patch,medicated 1 patch topical DAILY Qty: 30 0RF Rx Instructions: leave on most painful area for up to 12 hrs ibuprofen 400 mg tablet 400 mg PO Q6H PRN (Reason: Pain) Qty: 60 0RF cyclobenzaprine 5 mg tablet 5 mg PO BEDTIME PRN (Reason: muscle spasm) Qty: 20 0RF pantoprazole [Protonix] 40 mg tablet,delayed release (DR/EC) 40 mg PO DAILY Qty: 14 0RF Referrals: [facility] [place] [facility] [Provider Group] - 1 week [facility] [Provider Group] [facility] [Provider Group] Brittany Montoya [Emergency Nurse] - Interventions: ED Discharge Assessment Last Done: 10/07/22 15:19 Discharge Date/Time: 10/07/22 15:31
--- NOTE | 2022-10-07 09:56 | PC.NURSE ---
Alert and oriented, kittitian speaking, info obtained with private equity analyst. States woke up this am with right sided abdominal pain. States has gt chest pain that also started this am. Denies diarrhea. Denies sob or chest pain. States headache with dizziness with poor balance. States this all started today. Denies having dx of htn. denies pain with urination , no edea noted. right side tender to palpation.
[2022-10-07 10:03] VITALS: BP 165/93; PULSE 118; RESP 18; O2SAT 97
[2022-10-07] MEDS: amLODIPine Besylate 5 MG TABLET PO ×2 (10:17→12:24)
[2022-10-07 11:11] LABS: MANUAL DIFF FLAG NO
[2022-10-07 11:12] LABS: Basophils Absolute Auto 0.1 X10*3/uL (0.0-0.2); Basophils Percent Auto 1.1 % (0-2); Eosinophils Absolute Auto 0.2 X10*3/uL (0.0-0.4); Eosinophils Percent Auto 2.4 % (0-4); Hematocrit 44.3 % (42.0-52.0); Hemoglobin 15.6 g/dl (14.0-18.0); Imm Gran Abs Auto 0.04 X10*3/uL (0.00-0.03); Imm Gran Pct Auto 0.6 % (0.0-0.4); Lymphocytes Absolute Auto 1.3 X10*3/uL (1.2-4.9); Lymphocytes Percent Auto 17.8 % (20-40); Mean Corpuscular HGB Conc 35.2 g/dl (31.0-36.0); Mean Corpuscular Hemoglobin 28.1 pg (27.0-33.0); Mean Corpuscular Volume 79.8 fL (80.0-98.0); Mean Platelet Volume 9.6 fL (9.4-12.4); Monocytes Absolute Auto 0.7 X10*3/uL (0.1-1.2); Monocytes Percent Auto 9.8 % (2-11); Neutrophils Absolute Auto 4.8 x10*3/uL (2.0-8.3); Neutrophils Percent Auto 68.3 % (45-73); Platelet Count 291 X10*3/uL (160-400); Red Blood Count 5.55 X10*6/uL (4.60-5.80); Red Cell Distribution Width 12.8 % (11.0-16.0)
[2022-10-07 11:25] LABS: Lipase 22 U/L (8-78); Magnesium 1.8 mg/dL (1.6-2.6)
[2022-10-07 11:26] LABS: Alanine Aminotransferase 157 U/L (0-40); Albumin Level 4.2 g/dL (3.5-5.0); Alkaline Phosphatase 46 U/L (39-117); Anion Gap 14 (12-20); Aspartate Amino Transferase 81 U/L (5-37); Bilirubin Total 0.5 mg/dL (0.0-1.0); Blood Urea Nitrogen 11 mg/dL (9-16); Calcium 9.2 mg/dL (8.4-10.2); Carbon Dioxide 23 mmol/L (22-29); Chloride 104 mmol/L (96-108); Creatinine Clr Calc Pharmacy 170.4; Estimated Glomerular Filt Rate > 60; Glucose Random 157 mg/dL (60-115); Potassium 4.2 mmol/L (3.3-5.1); Sodium 137 mmol/L (135-145); Total Protein 7.2 g/dL (6.5-8.0)
[2022-10-07] MEDS: Magnesium Hydrox/Alum Hydrox 30 ML ORAL.SUSP PO (11:46)
[2022-10-07] MEDS: Famotidine 20 MG TABLET PO (11:46)
[2022-10-07 11:48] VITALS: BP 174/111; PULSE 78; RESP 16; O2SAT 96
[2022-10-07 12:22] VITALS: BP 159/103; PULSE 75; O2SAT 96
[2022-10-07 13:13] VITALS: BP 171/105; PULSE 75; RESP 18
[2022-10-07 14:27] LABS: Troponin-I High Sensitivity 4.4 ng/L (<3.5-35.0)
[2022-10-07 15:02] VITALS: BP 153/97
[2022-10-07] MEDS: Butalb/Acetamin/Caff 50/325/40 TABLET 1 TAB PO (15:18)
== END 2022-10-07 15:31 | disposition home or self-care (01) ==
PROVIDERS: Physician Assistant; Emergency Provider Student in an Organized Health Care Education/Training Program
DX: I10 Essential (primary) hypertension (principal); R10.11 Right upper quadrant pain; R51.9 Headache, unspecified; Z79.899 Other long term (current) drug therapy
CPT/HCPCS: 36415; 70450; 71045; 76705; 80053; 83690; 83735; 84484; 85025; 93005; 99284; 99285

== ENCOUNTER → 2022-10-07 10:03 | Outpatient (BNV) | payer MEDICAID, SELFPAY | PROVIDERS: Emergency Provider Student in an Organized Health Care Education/Training Program; Visit Provider Internal Medicine Cardiovascular Disease | DX: R94.31 Abnormal electrocardiogram [ECG] [EKG] (principal) | CPT/HCPCS: 93010 ==

== ENCOUNTER 2022-11-06 01:42 | Emergency (ER) | payer MEDICAID, SELFPAY ==
[2022-11-06 01:46] VITALS: BP 207/121; PULSE 91; RESP 20; TEMP 36.5; O2SAT 99
[2022-11-06 01:55] VITALS: BP 207/121; PULSE 91; RESP 22; TEMP 36.5; O2SAT 99; BMI 46.7
[2022-11-06 02:09] LABS: Hematocrit 44.2 % (42.0-52.0); Hemoglobin 15.6 g/dl (14.0-18.0); Mean Corpuscular HGB Conc 35.3 g/dl (31.0-36.0); Mean Corpuscular Hemoglobin 28.2 pg (27.0-33.0); Mean Corpuscular Volume 79.8 fL (80.0-98.0); Mean Platelet Volume 9.4 fL (9.4-12.4); Platelet Count 289 X10*3/uL (160-400); Red Blood Count 5.54 X10*6/uL (4.60-5.80); Red Cell Distribution Width 12.9 % (11.0-16.0); White Blood Count 6.8 X10*3/uL (4.8-10.8)
[2022-11-06 02:34] LABS: Alanine Aminotransferase 153 U/L (0-40); Albumin Level 4.3 g/dL (3.5-5.0); Alkaline Phosphatase 49 U/L (39-117); Anion Gap 13 (12-20); Aspartate Amino Transferase 74 U/L (5-37); Bilirubin Total 0.5 mg/dL (0.0-1.0); Blood Urea Nitrogen 16 mg/dL (9-16); Calcium 9.7 mg/dL (8.4-10.2); Carbon Dioxide 25 mmol/L (22-29); Chloride 106 mmol/L (96-108); Creatinine Clr Calc Pharmacy 148.9; Estimated Glomerular Filt Rate > 60; Glucose Random 151 mg/dL (60-115); Lipase 30 U/L (8-78); Potassium 4.1 mmol/L (3.3-5.1); Sodium 140 mmol/L (135-145); Total Protein 7.6 g/dL (6.5-8.0)
[2022-11-06 04:20] VITALS: BP 172/108; PULSE 89
[2022-11-06 07:28] VITALS: BP 146/88; PULSE 78; RESP 16; O2SAT 96
[2022-11-06 07:39] LABS: Appearance Urine Clear; Color Urine Yellow; Glucose Urine UA Negative (Negative); Leukocyte Esterase Urine Negative (Negative); Nitrite Urine Negative (Negative); PH 6.5 (5.0-9.0); Urine Blood Negative (Negative); Urine Ketones Negative (Negative); Urine Protein Negative (Neg-Trace)
[2022-11-06 07:43] LABS: Bacteria Urine Trace (None Seen); Hyaline Casts Urine 0-2 /LPF (0-2); RBC Urine 0-2 /HPF (0-2); WBC Urine 0-5 /HPF (0-5)
--- NOTE | 2022-11-06 07:53 | ED_ITS ---
HPI - Abdominal Pain General Chief Complaint: Abdominal Pain Stated Complaint: Throat pain? Time Seen by Provider: 11/06/22 07:45 Source: patient Mode of arrival: ambulatory Limitations: language barrier History of Present Illness HPI narrative: HIstory through interperter. RUQ pain, 6hour, cramping and burning and feels his stomach is swollen, Prior visits for the same thing. MD elicited complaint: abdominal pain Quality: cramping Radiation: RUQ Related Data Previous Rx's Medication Instructions Recorded meclizine 25 mg tablet 25 mg PO DAILY dizziness #20 tabs 04/14/20 acetaminophen 325 mg tablet 325 mg PO QID PRN pain #90 tabs 03/31/21 (Tylenol) cyclobenzaprine 5 mg tablet 5 mg PO BEDTIME PRN muscle spasm 03/31/21 #20 tabs ibuprofen 400 mg tablet 400 mg PO Q6H PRN Pain #60 tabs 03/31/21 lidocaine 5 % topical patch 1 patch topical DAILY back pain 03/31/21 #30 ea pantoprazole 40 mg tablet,delayed 40 mg PO DAILY #14 tabs 09/18/22 release (Protonix) aluminum-mag hydroxide-simethicone 5 ml PO 5XD PRN dyspepsia #30 mL 10/07/22 200 mg-200 mg-20 mg/5 mL oral susp (Maalox Advanced) amlodipine 10 mg tablet 10 mg PO DAILY 30 days #30 tabs 10/07/22 famotidine 20 mg tablet (Pepcid) 20 mg PO DAILY #14 tabs 10/07/22 pantoprazole 40 mg tablet,delayed 40 mg PO DAILY #20 tabs 11/06/22 release (Protonix) Allergies Allergy/AdvReac Type Severity Reaction Status Date / Time No Known Allergies Allergy Verified 10/07/22 09:40 Review of Systems Review of Systems Yes all other systems are reviewed and are negative [facility] Social History Social History Alcohol intake: current Alcohol intake frequency: holidays/special occasions only Alcohol type: hard liquor Advance Directives: No Advance Directives Information Provided: No Physical Exam ED Vital Signs: Vital Signs - 24 hr 11/06/22 01:46 11/06/22 01:55 11/06/22 04:20 Temperature 97.7 F 97.7 F Pulse Rate 91 91 89 Respiratory Rate 20 22 H Blood Pressure 207/121 H 207/121 H 172/108 H Pulse Oximetry 99 99 Oxygen Delivery Method Room Air Room Air 11/06/22 07:28 Temperature Pulse Rate 78 Respiratory Rate 16 Blood Pressure 146/88 H Pulse Oximetry 96 Oxygen Delivery Method Room Air BMI result Body Mass Index 46.7 Const General: healthy appearing Nutritional Appearance: average body habitus Orientation/consciousness: oriented to person and patient oriented x3 Limitations: no limitations HENMT Head: Yes normal to inspection Ears: external ears normal General nose exam: Normal external nose present Mouth: Normal oral and palatal mucosa present and oropharynx normal Throat: Yes posterior oropharynx normal Eyes General: appearance normal, both eyes and all related structures Neck Neck: Yes normal visual inspection Chest Chest palpation & inspection: normal inspection of the chest Resp Auscultation: clear to auscultation bilaterally Cardio Jugular venous distension: no JVD Rate: regular rate Rhythm: regular rhythm Heart sounds: S1 normal heart sound present and S2 normal heart sound present GI Other: obese mild RUQ tenderness to palpation, no guarding or rebound Inspection: Yes normal to inspection Auscultation: normal bowel sounds General: Yes no CVA tenderness Back/Spine/Pelvis Back: no CVA tenderness Skin General skin exam: no rashes or lesions noted Neuro General: oriented to person and patient oriented x3 Cranial nerves: Yes CN's II-XII intact bilaterally Motor exam (neuro): 5/5 motor strength present throughout Extrem General: Yes normal to inspection Psych Appearance: grossly normal Course Reevaluation(s) Reevaluation #1: no evidence of acute biliary obstruction will dc home on protonix Time: 08:50 Medical Decision Making Differential Diagnosis Differential Diagnoses: The differential diagnosis associated with the presentation includes (ascending cholangitis, cholecystitis, biliary colic were all considered) Admission/Observation Consideration of admission/observation: Escalation of care including admis axel/observation considered (upon arrival this patient was considered for admission) Lab Data MDM Lab Attestation statement: I reviewed the patient's lab results. (no elevated WBC, baseline LFT elevation from fatty liver, no evidence of biliary obstruction) 11/06/22 02:03 11/06/22 02:03 Labs: Lab Results 11/06/22 11/06/22 11/06/22 Range/Units 02:03 02:03 07:24 WBC 6.8 (4.8-10.8) X10*3/uL RBC 5.54 (4.60-5.80) X10*6/uL Hgb 15.6 (14.0-18.0) g/dl Hct 44.2 (42.0-52.0) % MCV 79.8 L (80.0-98.0) fL MCH 28.2 (27.0-33.0) pg MCHC 35.3 (31.0-36.0) g/dl RDW 12.9 (11.0-16.0) % Plt Count 289 (160-400) X10*3/uL MPV 9.4 (9.4-12.4) fL Absolute Nucleated RBC 0.000 (0.0-0.012) X10*3/uL Nucleated RBC % (auto) 0.0 (0.0-0.2) /100WBC Sodium 140 (135-145) mmol/L Potassium 4.1 (3.3-5.1) mmol/L Chloride 106 (96-108) mmol/L Carbon Dioxide 25 (22-29) mmol/L Anion Gap 13 (12-20) BUN 16 (9-16) mg/dL Creatinine 1.14 (0.5-1.4) mg/dL Estim Creat Clear Calc 148.9 Estimated GFR > 60 Random Glucose 151 H (60-115) mg/dL Calcium 9.7 (8.4-10.2) mg/dL Total Bilirubin 0.5 (0.0-1.0) mg/dL AST 74 H (5-37) U/L ALT 153 H (0-40) U/L Alkaline Phosphatase 49 (39-117) U/L Total Protein 7.6 (6.5-8.0) g/dL Albumin 4.3 (3.5-5.0) g/dL Lipase 30 (8-78) U/L Urine Color Yellow Urine Appearance Clear Urine pH 6.5 (5.0-9.0) Ur Specific [place] 1.020 (1.005-1.025) Urine Protein Negative (Neg-Trace) mg/dL Urine Glucose (UA) Negative (Negative) mg/dL Urine Ketones Negative (Negative) mg/dL Urine Blood Negative (Negative) Urine Nitrite Negative (Negative) Ur Leukocyte Esterase Negative (Negative) Urine RBC 0-2 (0-2) /HPF Urine WBC 0-5 (0-5) /HPF Ur Squamous Epith Cells 3-5 (0-2) /HPF Urine Bacteria Trace (None Seen) Hyaline Casts 0-2 (0-2) /LPF External Record Review External record reviewed: Outpatient record (reviewed CT and US results which showed gallstone vs polyp) Tests considered The following testing was considered but not selected: I considered obtaining another US but patient is afebrile, no elevated WBC no obstruction Prescription Management I considered prescription management with: Pain Medication Chronic Conditions Patient?s care impacted by: Other (obesity) Social Determinants Patient?s care significantly limited by Social Determinants of Health including: Low income Discharge Plan Discharge Clinical Impression: Biliary colic, Fatty infiltration of liver Patient Disposition: Home, Self-Care Instructions: Biliary Colic (ED), Liver Disease Diet (DC) Prescriptions: New pantoprazole [Protonix] 40 mg tablet,delayed release (DR/EC) 40 mg PO DAILY Qty: 20 0RF No Action meclizine 25 mg tablet 25 mg PO DAILY Qty: 20 0RF acetaminophen [Tylenol] 325 mg tablet 325 mg PO QID PRN (Reason: pain) Qty: 90 0RF lidocaine 5 % adhesive patch,medicated 1 patch topical DAILY Qty: 30 0RF Rx Instructions: leave on most painful area for up to 12 hrs ibuprofen 400 mg tablet 400 mg PO Q6H PRN (Reason: Pain) Qty: 60 0RF cyclobenzaprine 5 mg tablet 5 mg PO BEDTIME PRN (Reason: muscle spasm) Qty: 20 0RF pantoprazole [Protonix] 40 mg tablet,delayed release (DR/EC) 40 mg PO DAILY Qty: 14 0RF amlodipine 10 mg tablet 10 mg PO DAILY 30 Days Qty: 30 0RF alum-mag hydroxide-simeth [Maalox Advanced] 200-200-20 mg/5 mL suspension 5 ml PO 5XD PRN (Reason: dyspepsia) Qty: 30 0RF Rx Instructions: administer between meals and at bedtime famotidine [Pepcid] 20 mg tablet 20 mg PO DAILY Qty: 14 0RF Referrals: Benito Rahman MD [Physician] - 1 week
== END 2022-11-06 09:18 | disposition home or self-care (01) ==
PROVIDERS: Emergency Provider Emergency Medicine
DX: K80.50 Calculus of bile duct without cholangitis or cholecystitis without obstruction (principal); K76.0 Fatty (change of) liver, not elsewhere classified; R10.11 Right upper quadrant pain; Z79.899 Other long term (current) drug therapy
CPT/HCPCS: 36415; 80053; 81001; 83690; 85027; 99283

== ENCOUNTER 2022-12-30 06:44 | Emergency (ER) | payer MEDICAID, SELFPAY ==
[2022-12-30 06:55] VITALS: BP 174/103; PULSE 80; RESP 19; TEMP 36.6; O2SAT 99; BMI 46.7
[2022-12-30 07:11] VITALS: PULSE 80; RESP 18; O2SAT 97
--- NOTE | 2022-12-30 07:14 | PC.NURSE ---
Pt here recently for similar episodes, pt stated he was feeling better, however last night he ate [employer], and have been in 10/10 pain since, pt given education on diet for gallbladder aggravating foods, he stated no one told him on d/c. Pt currently laying in bed, moaning asking for pain medication
--- NOTE | 2022-12-30 07:33 | ED.ABDPAIN ---
HPI - Abdominal Pain General Chief Complaint: Abdominal Pain Stated Complaint: Flank pain Time Seen by Provider: 12/30/22 07:29 Source: patient Mode of arrival: ambulatory Limitations: language barrier (Patient's 1st language is Nigerian, does speak Nepali, technology architect used) History of Present Illness HPI narrative: 32-year-old male who presents emergency department for evaluation of right upper quadrant abdominal pain which began this morning. He states that he woke up with the pain at 06:00 hours. Describes the pain is severe sharp, throbbing pain located in his right upper quadrant radiates to his back. Patient states he has had similar pain in the past and states he has had ultrasound to determine the had gallstones. Patient did have [place] fried chicken to eat yesterday. He states that he had subjective fever and chills. He had nausea and vomited once. He denied diarrhea. Patient states that he had similar pain 3 years prior but then lost a significant amount of weight and was told that did not he is gallbladder removed. He states he has regained the weight that he lost previously Related Data Previous Rx's Medication Instructions Recorded meclizine 25 mg tablet 25 mg PO DAILY dizziness #20 tabs 04/14/20 acetaminophen 325 mg tablet 325 mg PO QID PRN pain #90 tabs 03/31/21 (Tylenol) cyclobenzaprine 5 mg tablet 5 mg PO BEDTIME PRN muscle spasm 03/31/21 #20 tabs ibuprofen 400 mg tablet 400 mg PO Q6H PRN Pain #60 tabs 03/31/21 lidocaine 5 % topical patch 1 patch topical DAILY back pain 03/31/21 #30 ea pantoprazole 40 mg tablet,delayed 40 mg PO DAILY #14 tabs 09/18/22 release (Protonix) aluminum-mag hydroxide-simethicone 5 ml PO 5XD PRN dyspepsia #30 mL 10/07/22 200 mg-200 mg-20 mg/5 mL oral susp (Maalox Advanced) amlodipine 10 mg tablet 10 mg PO DAILY 30 days #30 tabs 10/07/22 famotidine 20 mg tablet (Pepcid) 20 mg PO DAILY #14 tabs 10/07/22 pantoprazole 40 mg tablet,delayed 40 mg PO DAILY #20 tabs 11/06/22 release (Protonix) ibuprofen 400 mg tablet 400 mg PO TID PRN fever or pain 12/30/22 #30 tabs ondansetron 4 mg disintegrating 4 mg PO Q6-8H PRN nausea and 12/30/22 tablet vomiting #14 tabs oxycodone 5 mg tablet 5 mg PO Q6H PRN pain #14 tabs 12/30/22 Allergies Allergy/AdvReac Type Severity Reaction Status Date / Time No Known Allergies Allergy Verified 12/30/22 06:55 Review of Systems Review of Systems Yes all other systems are reviewed and are negative [facility] Past Medical History [facility] Narrative: Past medical history: Pre diabetes mellitus, hypertension. Social history: He does vape nicotine products. He occasionally drinks alcohol. He denies drug use. Social History Social History Alcohol intake: current Alcohol intake frequency: holidays/special occasions only Alcohol type: hard liquor Smoked in Last 30 Days: No Use of substances other than those prescribed or required for medical reasons: No Advance Directives: No Physical Exam ED Vital Signs: Vital Signs - 24 hr 12/30/22 06:55 12/30/22 07:11 12/30/22 09:26 Temperature 98 F Pulse Rate 80 80 83 Respiratory Rate 19 18 18 Blood Pressure 174/103 H Pulse Oximetry 99 97 95 Oxygen Delivery Method Room Air Room Air Room Air 12/30/22 15:32 Temperature 98.2 F Pulse Rate 71 Respiratory Rate 22 H Blood Pressure 127/74 Pulse Oximetry 96 Oxygen Delivery Method Room Air BMI result Body Mass Index 46.7 Vital signs revealed an elevated blood pressure of 174/103 otherwise unremarkable Exam: General: Awake, alert in no distress Head: Normocephalic, atraumatic EENT: PERRL, Lids normal, sclera normal, conjunctiva normal, nose normal , ears normal, throat without erythema or exudates Neck: Supple, no adenopathy, trachea midline and nontender Lung: breath sounds symmetric, no wheezing, rales or rhonchi Chest: symmetric movement, nontender Heart: regular rate and rhythm, normal S1, S2 no murmurs or rubs Abdomen: soft, moderate right upper quadrant, negative Nava sign, nondistended, normal bowel sounds Back: no vertebral tenderness, no CVAT Extremities: no deformities, moves all extremities symmetrically Skin: no rashes, no lesion, normal color and warmth Neuro: Awake, alert, oriented, normal speech, cranial nerves intact, moves all extremities symmetrically Psych: Pleasant, cooperative Medical Decision Making Medical Decision Making MDM Narrative: 32-year-old male with history of pre diabetes, hypertension and known gallstones who presents emergency department for evaluation of right upper quadrant pain that he woke up with this morning at 06:00 hours . The pain does radiate to his back associated with nausea and vomiting. He had subjective fever and chills. Vital signs did reveal an elevated blood pressure with normal temperature. Exam did reveal right upper quadrant tenderness with a negative Nava sign. Following evaluation was ordered: CBC, BMP, liver panel, lipase, CT scan abdomen pelvis IV contrast, right upper quadrant ultrasound. 16:24 The patient's the laboratory evaluation did reveal mild elevation is AST and ALT this is chronic CT scan of the abdomen pelvis did not reveal a clear cause for the patient's right upper quadrant pain-there were some incidental findings that were not related to the patient's presentation unchanged from previous CT scans The patient's right upper quadrant ultrasound did reveal sludge in the patient's gallbladder wall Patient is feeling significantly better after the above treatment. Patient will be discharged home with prescriptions for ibuprofen, Zofran and advised to follow-up with the surgeon on-call He was given printed and verbal instructions on biliary colic. Differential Diagnosis Differential Diagnoses: The differential diagnosis associated with the presentation includes Differential diagnosis includes was not limited to biliary colic, cholecystitis, ureteral colic, ureteral stone, electrolyte abnormalities Admission/Observation Consideration of admission/observation: Escalation of care including admission/observation considered Lab Data MDM Lab Attestation statement: I reviewed the patient's lab results. AST and ALT elevated 4391- My interpretation patient's laboratory evaluation as follows: CBC was normal with WBC of 5800. Glucose was elevated 141. AST and ALT were elevated 43 and 91-he has had similar elevations in the past 12/30/22 07:32 12/30/22 07:32 Labs: Lab Results 12/30/22 Range/Units 07:32 WBC 5.8 (4.8-10.8) X10*3/uL RBC 5.34 (4.60-5.80) X10*6/uL Hgb 15.3 (14.0-18.0) g/dl Hct 43.5 (42.0-52.0) % MCV 81.5 (80.0-98.0) fL MCH 28.7 (27.0-33.0) pg MCHC 35.2 (31.0-36.0) g/dl RDW 12.8 (11.0-16.0) % Plt Count 287 (160-400) X10*3/uL MPV 9.7 (9.4-12.4) fL Immature Gran % (Auto) 0.3 (0.0-0.4) % Neut % (Auto) 46.3 (45-73) % Lymph % (Auto) 32.9 (20-40) % [place] % (Auto) 14.8 H (2-11) % Eos % (Auto) 4.3 H (0-4) % Baso % (Auto) 1.4 (0-2) % Lymph # (Auto) 1.9 (1.2-4.9) X10*3/uL [place] # (Auto) 0.9 (0.1-1.2) X10*3/uL Eos # (Auto) 0.3 (0.0-0.4) X10*3/uL Baso # (Auto) 0.1 (0.0-0.2) X10*3/uL Abs Immat Gran (auto) 0.02 (0.00-0.03) X10*3/uL Absolute Neuts (auto) 2.7 (2.0-8.3) x10*3/uL Absolute Nucleated RBC 0.000 (0.0-0.012) X10*3/uL Nucleated RBC % (auto) 0.0 (0.0-0.2) /100WBC Sodium 141 (135-145) mmol/L Potassium 3.9 (3.3-5.1) mmol/L Chloride 105 (96-108) mmol/L Carbon Dioxide 28 (22-29) mmol/L Anion Gap 12 (12-20) BUN 12 (9-16) mg/dL Creatinine 1.04 (0.5-1.4) mg/dL Estim Creat Clear Calc 163.2 Estimated GFR > 60 Random Glucose 141 H (60-115) mg/dL Calcium 9.0 D (8.4-10.2) mg/dL Total Bilirubin 0.6 (0.0-1.0) mg/dL Direct Bilirubin 0.2 (0.0-0.5) mg/dL AST 43 H (5-37) U/L ALT 91 H (0-40) U/L Alkaline Phosphatase 41 (39-117) U/L Total Protein 6.8 (6.5-8.0) g/dL Albumin 3.9 (3.5-5.0) g/dL Lipase 23 (8-78) U/L Radiology Impression Discussion of test interpretation with radiology: I have reviewed the radiologist's reading. Radiologist Impression: CT abdomen pelvis w IV con IMPRESSION: 1. No definite radiopaque cholelithiasis or suspicious gallbladder distention to favor acute cholecystitis however motion degraded exam limits assessment for pericholecystic inflammatory stranding and gallstones can be radiolucent therefore if persistent clinical concern consider right upper quadrant ultrasound. 2. Mildly enlarged harmeet hepatic nodes unchanged from recent prior and decreased from 2014 measuring 1.4 cm and therefore may be reactive. 3. A 4 mm solid pulmonary nodule in the left lung base, stable from 09/04/2013 therefore likely benign. Per 2017 revised Fleischner society guidelines, no further follow-up imaging is recommended. Dictated By: Hemalatha Seaman MD US abdomen limited IMPRESSION: The gallbladder lumen is filled with iso-hypoechogenicity, most consistent with interval development of sludge, new since 10/07/2022. Differential includes hemorrhage. Normal caliber common bile duct. No definite scintigraphic evidence of acute cholecystitis or biliary obstruction. Dictated By: Brook Grewal MD Medications Administered Discontinued Medications Generic Name Dose Route Start Last Admin Trade Name Freq PRN Reason Stop Dose Admin Sodium Chloride 1,000 mls @ 999 mls/hr 12/30/22 07:45 12/30/22 09:25 Ns IV 12/30/22 08:45 Infused .Q1H1M JOSÉ LUIS Infusion Sodium Chloride 1,000 mls @ 999 mls/hr 12/30/22 08:38 12/30/22 09:25 Ns IV 12/30/22 09:38 Not Given .Q1H1M STA Iohexol 85 ml 12/30/22 09:19 12/30/22 09:22 Iohexol 350 Mg/Ml 100 Ml Infus..Btl IV 12/30/22 09:20 85 ml ONCE ONE Administration Ketorolac Tromethamine 15 mg 12/30/22 08:38 12/30/22 09:25 Ketorolac Tromethamine 15 Mg/Ml Vial IVPUSH 12/30/22 08:39 15 mg ONCE STA Administration Ondansetron HCl 4 mg 12/30/22 08:38 12/30/22 09:25 Ondansetron Hcl 4 Mg/2 Ml Vial IVPUSH 12/30/22 08:39 4 mg ONCE ONE Administration Discharge Plan Discharge Clinical Impression: Biliary colic, Biliary sludge determined by ultrasound Patient Disposition: Home, Self-Care Instructions: Biliary Colic (ED), Low Fat Diet (ED) Additional Instructions: Your blood work was unremarkable except for mild elevation in your liver tests-you had similar elevations in the past The CT scan did not reveal a clear cause for your pain. The ultrasound did not reveal any stones in your gallbladder but you have thick sludge in your gallbladder You will need to follow-up with our surgeon on-call for re-evaluation to determine if you need your gallbladder out. Take ibuprofen 400 mg pills, 1 pills every 6 hours as needed for pain or fever. For pain not relieved by ibuprofen or Tylenol take oxycodone 5 mg pills, 1 pill every 4 hours as needed for pain. Do not drive or work while taking this medication since they can cause sleepiness. Oxycodone is a narcotic medication that can be addicting. If you are concerned about addiction you can ask the pharmacist for less pills or do not get this prescription filled. Take Zofran ODT 4 mg pills, 1 pill dissolved in your mouth every 8 hours as needed for nausea and vomiting. Follow-up with our surgeon on-call, Dr. Casillas within 1-2 weeks for re-evaluation to determine if you need her gallbladder out You should also follow-up with your primary care doctor in 2-3 days for re-evaluation as well pain Please return to the emergency department if your symptoms get worse or if you develop any symptoms that are concerning to you. Prescriptions: New ibuprofen 400 mg tablet 400 mg PO TID PRN (Reason: fever or pain) Qty: 30 0RF ondansetron 4 mg tablet,disintegrating 4 mg PO Q6-8H PRN (Reason: nausea and vomiting) Qty: 14 0RF oxycodone 5 mg tablet 5 mg PO Q6H PRN (Reason: pain) Qty: 14 0RF Rx Instructions: Patient may request partial refill; Partial Fill upon patient request. No Action meclizine 25 mg tablet 25 mg PO DAILY Qty: 20 0RF acetaminophen [Tylenol] 325 mg tablet 325 mg PO QID PRN (Reason: pain) Qty: 90 0RF lidocaine 5 % adhesive patch,medicated 1 patch topical DAILY Qty: 30 0RF Rx Instructions: leave on most painful area for up to 12 hrs ibuprofen 400 mg tablet 400 mg PO Q6H PRN (Reason: Pain) Qty: 60 0RF cyclobenzaprine 5 mg tablet 5 mg PO BEDTIME PRN (Reason: muscle spasm) Qty: 20 0RF pantoprazole [Protonix] 40 mg tablet,delayed release (DR/EC) 40 mg PO DAILY Qty: 14 0RF amlodipine 10 mg tablet 10 mg PO DAILY 30 Days Qty: 30 0RF alum-mag hydroxide-simeth [Maalox Advanced] 200-200-20 mg/5 mL suspension 5 ml PO 5XD PRN (Reason: dyspepsia) Qty: 30 0RF Rx Instructions: administer between meals and at bedtime famotidine [Pepcid] 20 mg tablet 20 mg PO DAILY Qty: 14 0RF pantoprazole [Protonix] 40 mg tablet,delayed release (DR/EC) 40 mg PO DAILY Qty: 20 0RF Referrals: Aaliyah Casillas MD [Physician] - 2 weeks (Biliary colic, ultrasound revealed biliary sludge, slight chronic elevation in AST and ALT otherwise labs unremarkable.)
[2022-12-30 09:26] VITALS: PULSE 83; RESP 18; O2SAT 95
[2022-12-30 15:32] VITALS: BP 127/74; PULSE 71; RESP 22; TEMP 36.8; O2SAT 96
== END 2022-12-30 17:43 | disposition home or self-care (01) ==
PROVIDERS: Emergency Provider Emergency Medicine Emergency Medical Services
DX: K80.50 Calculus of bile duct without cholangitis or cholecystitis without obstruction (principal); K83.8 Other specified diseases of biliary tract
CPT/HCPCS: 36415; 74177; 76705; 80048; 80076; 83690; 85025; 96361; 96374; 96375; 99284; 99285; J1885; J2405; Q9967

== ENCOUNTER 2023-02-07 17:09 | Emergency (ER) | payer MEDICAID, SELFPAY ==
--- NOTE | ~2023-02-07 | US_ITS ---
EXAMINATION: US ABDOMEN LIMITED CLINICAL INFORMATION: Right upper quadrant pain, tenderness and nausea. COMPARISON: None available. TECHNIQUE: Real-time imaging of the right upper quadrant abdominal viscera. FINDINGS: PANCREAS: Normal. LIVER: The liver is normal in size, with a longitudinal span of 16.7 cm. The liver contour is normal. Parenchymal echogenicity is increased, with pericholecystic sparing. No focal hepatic lesion. There is no intrahepatic biliary duct dilatation seen. GALLBLADDER: There is gallbladder wall thickening to 8 mm. The gallbladder is physiologically distended without evidence of stones, sludge, wall thickening or pericholecystic fluid. COMMON BILE DUCT: Normal in caliber measuring 0.3 cm in diameter. RIGHT KIDNEY: Normal. No hydronephrosis. No renal calculi or focal parenchymal lesions. The kidney measures 12.4 cm in maximum dimension. FREE FLUID: None. US/US abdomen limited IMPRESSION: 1. There is generalized increase in hepatic echotexture, consistent with fatty infiltration or hepatocellular disease. Please correlate clinically. Characteristic pericholecystic sparing favors fatty infiltration. No focal hepatic mass or intrahepatic biliary dilatation is seen. 2. There is gallbladder wall thickening and echogenic bile, raising the possibility of acalculous cholecystitis. Please correlate clinically. If clinically indicated, this can be further evaluated with nuclear HIDA imaging.
[2023-02-07 17:18] VITALS: BP 168/104; PULSE 89; RESP 16; TEMP 36.9; O2SAT 93; BMI 47.5
[2023-02-07 17:32] LABS: MANUAL DIFF FLAG NO
[2023-02-07 17:34] LABS: Basophils Absolute Auto 0.1 X10*3/uL (0.0-0.2); Basophils Percent Auto 0.8 % (0-2); Eosinophils Absolute Auto 0.2 X10*3/uL (0.0-0.4); Eosinophils Percent Auto 1.7 % (0-4); Hematocrit 44.8 % (42.0-52.0); Hemoglobin 15.5 g/dl (14.0-18.0); Imm Gran Abs Auto 0.04 X10*3/uL (0.00-0.03); Imm Gran Pct Auto 0.4 % (0.0-0.4); Lymphocytes Absolute Auto 1.1 X10*3/uL (1.2-4.9); Lymphocytes Percent Auto 10.5 % (20-40); Mean Corpuscular HGB Conc 34.6 g/dl (31.0-36.0); Mean Corpuscular Volume 80.9 fL (80.0-98.0); Mean Platelet Volume 9.6 fL (9.4-12.4); Monocytes Absolute Auto 0.7 X10*3/uL (0.1-1.2); Monocytes Percent Auto 6.3 % (2-11); Neutrophils Absolute Auto 8.5 x10*3/uL (2.0-8.3); Neutrophils Percent Auto 80.3 % (45-73); Platelet Count 305 X10*3/uL (160-400); Red Blood Count 5.54 X10*6/uL (4.60-5.80); Red Cell Distribution Width 12.9 % (11.0-16.0); White Blood Count 10.6 X10*3/uL (4.8-10.8)
[2023-02-07 18:01] LABS: Alanine Aminotransferase 69 U/L (0-40); Albumin Level 4.3 g/dL (3.5-5.0); Alkaline Phosphatase 43 U/L (39-117); Anion Gap 11 (12-20); Aspartate Amino Transferase 46 U/L (5-37); Bilirubin Total 0.7 mg/dL (0.0-1.0); Blood Urea Nitrogen 11 mg/dL (9-16); Calcium 9.4 mg/dL (8.4-10.2); Carbon Dioxide 26 mmol/L (22-29); Chloride 103 mmol/L (96-108); Estimated Glomerular Filt Rate > 60; Glucose Random 206 mg/dL (60-115); Lipase 16 U/L (8-78); Potassium 4.3 mmol/L (3.3-5.1); Sodium 136 mmol/L (135-145); Total Protein 7.6 g/dL (6.5-8.0)
--- NOTE | 2023-02-07 18:05 | MHC.EDTECH ---
Assist patient with putting monse on.
[2023-02-07] MEDS: Ketorolac Tromethamine 30 MG/ML VIAL IVPUSH (18:47)
[2023-02-07] MEDS: ondansetron HCL 4 MG/2 ML VIAL IVPUSH (18:47)
[2023-02-07] MEDS: 0.9 % Sodium Chloride 1,000 ML 999 ML IV (18:47)
--- NOTE | 2023-02-07 19:13 | ED.ABDPAIN ---
HPI - Abdominal Pain General Chief Complaint: Abdominal Pain Stated Complaint: nausea, gallbladder issues Time Seen by Provider: 02/07/23 17:52 Source: patient Mode of arrival: ambulatory Limitations: no limitations History of Present Illness HPI narrative: Patient is a 32 old male presents emergency department with reports of gallbladder pain. He reports a history of gallbladder disease for approximately 3-4 years. He states that initially his symptoms had resolved after he lost a significant amount of weight, unfortunately he did regain that weight and he began having issues again. He reports over the past 3-4 months he has been experiencing intermittent right upper quadrant pain and associated nausea which feels consistent with prior gallbladder issues. He reports that he was seen in this emergency department 1 month ago, he received a prescription for pain medications which did improve his symptoms, and he was given a referral to a surgeon to follow-up with. He states he lost the discharge paperwork in the surgeon's information, and since he was feeling better he did not seek this information out again. He has been experiencing this most recent flare of symptoms for the past 3 days, intermittent right upper quadrant pain made worse with eating, associated nausea but no vomiting. He states that the pain started after he ate fried chicken, potato chips, and drink a can of soda. He denies fevers, chills, chest pain, shortness of breath, numbness or tingling of the extremities, lower abdominal pain, diarrhea, constipation, hematochezia, melena, genitourinary symptoms. Related Data Previous Rx's Medication Instructions Recorded meclizine 25 mg tablet 25 mg PO DAILY dizziness #20 tabs 04/14/20 acetaminophen 325 mg tablet 325 mg PO QID PRN pain #90 tabs 03/31/21 (Tylenol) cyclobenzaprine 5 mg tablet 5 mg PO BEDTIME PRN muscle spasm 03/31/21 #20 tabs ibuprofen 400 mg tablet 400 mg PO Q6H PRN Pain #60 tabs 03/31/21 lidocaine 5 % topical patch 1 patch topical DAILY back pain 03/31/21 #30 ea pantoprazole 40 mg tablet,delayed 40 mg PO DAILY #14 tabs 09/18/22 release (Protonix) aluminum-mag hydroxide-simethicone 5 ml PO 5XD PRN dyspepsia #30 mL 10/07/22 200 mg-200 mg-20 mg/5 mL oral susp (Maalox Advanced) amlodipine 10 mg tablet 10 mg PO DAILY 30 days #30 tabs 10/07/22 famotidine 20 mg tablet (Pepcid) 20 mg PO DAILY #14 tabs 10/07/22 pantoprazole 40 mg tablet,delayed 40 mg PO DAILY #20 tabs 11/06/22 release (Protonix) ibuprofen 400 mg tablet 400 mg PO TID PRN fever or pain 12/30/22 #30 tabs ondansetron 4 mg disintegrating 4 mg PO Q6-8H PRN nausea and 12/30/22 tablet vomiting #14 tabs oxycodone 5 mg tablet 5 mg PO Q6H PRN pain #14 tabs 12/30/22 ondansetron 4 mg disintegrating 4 mg PO Q8H PRN nausea and 02/07/23 tablet vomiting #10 tabs pantoprazole 40 mg tablet,delayed 40 mg PO DAILY #14 tabs 02/07/23 release Allergies Allergy/AdvReac Type Severity Reaction Status Date / Time No Known Allergies Allergy Verified 02/07/23 17:18 Review of Systems Review of Systems Yes all other systems are reviewed and are negative [facility] Past Medical History Attestation statement: The following information was validated with the patient. Source: old records reviewed Social History Social History Alcohol intake: current Alcohol intake frequency: holidays/special occasions only Alcohol type: hard liquor Smoked in Last 30 Days: No Use of substances other than those prescribed or required for medical reasons: No Advance Directives: No Advance Directives Information Provided: No Physical Exam ED Vital Signs: Vital Signs - 24 hr 02/07/23 17:18 02/07/23 21:33 Temperature 98.5 F 98.6 F Pulse Rate 89 68 Respiratory Rate 16 16 Blood Pressure 168/104 H 143/92 H Pulse Oximetry 93 96 Oxygen Delivery Method Room Air Room Air BMI result Body Mass Index 47.5 Appearance: Alert.?Oriented to person, place and time. No acute distress.?Normal affect. Eyes: Pupils equal, round and reactive to light.? Sclera normal. ENT: Pharynx normal.?? Neck: Normal inspection.? Neck supple.?? CVS: Heart sounds normal. Normal heart rate and rhythm.? Pulses normal.?? Respiratory: No respiratory distress.? Lung sounds clear to auscultation bilaterally?? Abdomen: Soft with right upper quadrant tenderness to palpation. Negative Nava sign. No rigidity. No guarding. No distention. No CVA tenderness. Normoactive bowel sounds. Skin: Skin warm and dry.? Normal skin color.? Extremities: No lower extremity edema.? Neuro: Moves all extremities spontaneously. Sensation intact bilaterally. No focal neuro deficits. Ambulates with normal steady gait. Course Reevaluation(s) Reevaluation #1: patient is tolerating oral intake, drinking fluids and eating crackers at the time of my re-evaluation. LFTs are mildly elevated but consisting prior levels, lipase within normal limits. Ultrasound revealing thickened gallbladder wall, which may be consistent with acalculous cholecystitis. Pain has resolved at this time. Reviewed this case with ED attending Dr. Ramirez, patient to be discharged home and outpatient follow off will gently surgery. All questions answered. Stable for discharge. Sent prescription for Protonix and Zofran to pharmacy. Reviewed worrisome signs and symptoms that would warrant re-evaluation in the emergency department. Time: 21:39 Medical Decision Making Medical Decision Making [facility] Narrative: Patient is a 32-year-old male with past medical history of prediabetes, hypertension presenting to emergency department for evaluation of right upper quadrant pain and nausea consistent with prior episodes of biliary colic. Onset of symptoms was 3 days ago, does radiate in to his lateral side. Will obtain CBC to evaluate for leukocytosis/ anemia, CMP and lipase to evaluate for abnormal electrolytes /abnormal renal function/ abnormal hepatic/biliary function, ABD ultrasound Differential Diagnosis Differential Diagnoses: The differential diagnosis associated with the presentation includes (Biliary colic, cholecystitis, gastritis. less likely PUD, ureteral colic, ureteral calculi.) Admission/Observation Consideration of admission/observation: Escalation of care including admission/observation considered Lab Data [facility] Lab Attestation statement: I reviewed the patient's lab results. CBC is without leukocytosis or anemia. CMP revealing chronic elevation of AST and ALT consistent with prior levels, elevated glucose at 206, lipase of 16 within normal range. 02/07/23 17:28 02/07/23 17:28 Labs: Lab Results 02/07/23 Range/Units 17:28 WBC 10.6 (4.8-10.8) X10*3/uL RBC 5.54 (4.60-5.80) X10*6/uL Hgb 15.5 (14.0-18.0) g/dl Hct 44.8 (42.0-52.0) % MCV 80.9 (80.0-98.0) fL MCH 28.0 (27.0-33.0) pg MCHC 34.6 (31.0-36.0) g/dl RDW 12.9 (11.0-16.0) % Plt Count 305 (160-400) X10*3/uL MPV 9.6 (9.4-12.4) fL Immature Gran % (Auto) 0.4 (0.0-0.4) % Neut % (Auto) 80.3 H (45-73) % Lymph % (Auto) 10.5 L (20-40) % Kershaw % (Auto) 6.3 (2-11) % Eos % (Auto) 1.7 (0-4) % Baso % (Auto) 0.8 (0-2) % Lymph # (Auto) 1.1 L (1.2-4.9) X10*3/uL [place]haw # (Auto) 0.7 (0.1-1.2) X10*3/uL Eos # (Auto) 0.2 (0.0-0.4) X10*3/uL Baso # (Auto) 0.1 (0.0-0.2) X10*3/uL Abs Immat Gran (auto) 0.04 H (0.00-0.03) X10*3/uL Absolute Neuts (auto) 8.5 H (2.0-8.3) x10*3/uL Absolute Nucleated RBC 0.000 (0.0-0.012) X10*3/uL Nucleated RBC % (auto) 0.0 (0.0-0.2) /100WBC Sodium 136 (135-145) mmol/L Potassium 4.3 (3.3-5.1) mmol/L Chloride 103 (96-108) mmol/L Carbon Dioxide 26 (22-29) mmol/L Anion Gap 11 L (12-20) BUN 11 (9-16) mg/dL Creatinine 1.02 (0.5-1.4) mg/dL Estim Creat Clear Calc 168.0 Estimated GFR > 60 Random Glucose 206 H (60-115) mg/dL Calcium 9.4 (8.4-10.2) mg/dL Total Bilirubin 0.7 (0.0-1.0) mg/dL AST 46 H (5-37) U/L ALT 69 H (0-40) U/L Alkaline Phosphatase 43 (39-117) U/L Total Protein 7.6 (6.5-8.0) g/dL Albumin 4.3 (3.5-5.0) g/dL Lipase 16 (8-78) U/L Independent Interpretation I performed an independent interpretation of an: Ultrasound Radiology Impression Discussion of test interpretation with radiology: I have reviewed the radiologist's reading. Radiologist Impression: US/US abdomen limited IMPRESSION: 1. There is generalized increase in hepatic echotexture, consistent with fatty infiltration or hepatocellular disease. Please correlate clinically. Characteristic pericholecystic sparing favors fatty infiltration. No focal hepatic mass or intrahepatic biliary dilatation is seen. 2. There is gallbladder wall thickening and echogenic bile, raising the possibility of acalculous cholecystitis. Please correlate clinically. If clinically indicated, this can be further evaluated with nuclear HIDA imaging. Tests considered The following testing was considered but not selected: as noted above and in course narrative Prescription Management I considered prescription management with: Pain Medication Medications Administered Discontinued Medications Generic Name Dose Route Start Last Admin Trade Name Freq PRN Reason Stop Dose Admin Sodium Chloride 1,000 mls @ 999 mls/hr 02/07/23 18:30 02/07/23 21:28 Ns IV 02/07/23 19:30 Infused .Q1H1M JOSÉ LUIS Infusion Ketorolac Tromethamine 30 mg 02/07/23 18:21 02/07/23 18:47 Ketorolac Tromethamine 30 Mg/Ml Vial IVPUSH 02/07/23 18:22 30 mg ONCE ONE Administration Ondansetron HCl 4 mg 02/07/23 18:21 02/07/23 18:47 Ondansetron Hcl 4 Mg/2 Ml Vial IVPUSH 02/07/23 18:22 4 mg ONCE ONE Administration Discharge Plan Discharge Clinical Impression: Biliary colic Patient Disposition: Home, Self-Care Instructions: Cholecystitis (ED), Biliary Colic (ED) Additional Instructions: You can take ibuprofen 200 mg, 3 tablets (600mg) every 6-8 hours as needed for pain, in addition to Tylenol 500 mg, 2 tablets (1,000mg) every 4-6 hours as needed for pain, but not to exceed 3 doses daily (3,000mg).? Take Zofran 4 mg, 1 pill to dissolve in your mouth every 8 hours as needed for nausea and vomiting. Take pantoprazole 40 mg daily Please contact the surgery office, to arrange for re-evaluation and determination of whether you needs your gallbladder removed Prescriptions: New pantoprazole 40 mg tablet,delayed release (DR/EC) 40 mg PO DAILY Qty: 14 0RF ondansetron 4 mg tablet,disintegrating 4 mg PO Q8H PRN (Reason: nausea and vomiting) Qty: 10 0RF No Action meclizine 25 mg tablet 25 mg PO DAILY Qty: 20 0RF acetaminophen [Tylenol] 325 mg tablet 325 mg PO QID PRN (Reason: pain) Qty: 90 0RF lidocaine 5 % adhesive patch,medicated 1 patch topical DAILY Qty: 30 0RF Rx Instructions: leave on most painful area for up to 12 hrs ibuprofen 400 mg tablet 400 mg PO Q6H PRN (Reason: Pain) Qty: 60 0RF cyclobenzaprine 5 mg tablet 5 mg PO BEDTIME PRN (Reason: muscle spasm) Qty: 20 0RF pantoprazole [Protonix] 40 mg tablet,delayed release (DR/EC) 40 mg PO DAILY Qty: 14 0RF amlodipine 10 mg tablet 10 mg PO DAILY 30 Days Qty: 30 0RF alum-mag hydroxide-simeth [Maalox Advanced] 200-200-20 mg/5 mL suspension 5 ml PO 5XD PRN (Reason: dyspepsia) Qty: 30 0RF Rx Instructions: administer between meals and at bedtime famotidine [Pepcid] 20 mg tablet 20 mg PO DAILY Qty: 14 0RF pantoprazole [Protonix] 40 mg tablet,delayed release (DR/EC) 40 mg PO DAILY Qty: 20 0RF ibuprofen 400 mg tablet 400 mg PO TID PRN (Reason: fever or pain) Qty: 30 0RF ondansetron 4 mg tablet,disintegrating 4 mg PO Q6-8H PRN (Reason: nausea and vomiting) Qty: 14 0RF oxycodone 5 mg tablet 5 mg PO Q6H PRN (Reason: pain) Qty: 14 0RF Rx Instructions: Patient may request partial refill; Partial Fill upon patient request. Referrals: Edilson Rojas MD [Physician] -
[2023-02-07 21:33] VITALS: BP 143/92; PULSE 68; RESP 16; TEMP 37; O2SAT 96
[2023-02-07 21:38] VITALS: BP 140/92
== END 2023-02-07 21:49 | disposition home or self-care (01) ==
PROVIDERS: Emergency Provider Emergency Medicine
DX: K80.50 Calculus of bile duct without cholangitis or cholecystitis without obstruction (principal); R11.2 Nausea with vomiting, unspecified; R73.03 Prediabetes; R10.11 Right upper quadrant pain; Z79.899 Other long term (current) drug therapy
CPT/HCPCS: 36415; 76705; 80053; 83690; 85025; 96361; 96374; 96375; 99284; J1885; J2405

== ENCOUNTER 2023-02-21 08:32 | Emergency (ER) | payer MEDICAID, SELFPAY ==
--- NOTE | ~2023-02-21 | CT_ITS ---
EXAMINATION: CT ABDOMEN AND PELVIS WITHOUT CONTRAST CLINICAL INFORMATION: RUQ pain, worsening LFTs COMPARISON: Right upper quadrant ultrasound earlier today, CT abdomen pelvis 12/30/2022 TECHNIQUE: Multidetector volumetric imaging was performed from the superior aspect of the liver through the pubic symphysis. Sagittal and coronal reformatted images were obtained on the technologist's workstation. Of note, the exam was requested with IV contrast however the patient refused administration. In addition, there is severe respiratory artifact present degrading the images. This CT examination was performed using dose optimization techniques as appropriate, variously including the following: *Automated exposure control *Adjustment of mA and/or kV according to patient size (this includes techniques or standardized protocols for targeted exams where dose is matched to indication/reason for exam; i.e. extremities or head) *Use of iterative reconstruction technique DLP: 1945 mGy-cm FINDINGS: LUNG BASES: No gross abnormality is seen. There is marked respiratory artifact present LIVER, GALLBLADDER, AND BILIARY TREE: The liver is enlarged measuring at least 20 cm in greatest length with decreased attenuation consistent with hepatic steatosis. No focal hepatic lesion or biliary ductal dilatation is present. The gallbladder is contains layering high density material consistent with the echogenic bile is seen on ultrasound. There are no obvious pericholecystic inflammatory changes. PANCREAS: Unremarkable. SPLEEN: Unremarkable. ADRENAL GLANDS: Unremarkable. KIDNEYS AND URETERS: The kidneys are normal in size, shape, and attenuation. No hydronephrosis, hydroureter, or calculi seen. No perinephric stranding. BLADDER: Unremarkable. GASTROINTESTINAL TRACT: The small and large bowel are unremarkable. The appendix is not seen but there is no evidence of appendicitis.. ABDOMINAL WALL: No significant hernia is appreciated. LYMPH NODES: Some small periceliac lymph nodes are seen. No retroperitoneal lymphadenopathy. VASCULAR: Unremarkable. PELVIC VISCERA: The prostate and seminal vesicles are unremarkable. OSSEOUS STRUCTURES: Unremarkable. CT/CT abdomen pelvis wo IV con IMPRESSION: 1. The exam is limited by lack of IV contrast as well as marked motion artifact degrading the imaging. 2. Enlarged fatty liver. 3. Layering high density material in the gallbladder consistent with the echogenic bile is seen on ultrasound. No obvious pericholecystic inflammatory changes are seen. 4. Other incidental findings as described above. Fleischner guidelines were followed.
--- NOTE | ~2023-02-21 | US_ITS ---
EXAMINATION: US ABDOMEN LIMITED CLINICAL INFORMATION: Right upper quadrant pain. COMPARISON: None available. TECHNIQUE: Real-time imaging of the right upper quadrant abdominal viscera. FINDINGS: GALLBLADDER: Prominent echogenic bile observed in the gallbladder lumen. No appreciable focal shadowing gallstones, gallbladder wall thickening, or pericholecystic fluid. COMMON BILE DUCT: Normal in caliber measuring 0.5-0.6 cm in diameter. US/US abdomen limited IMPRESSION: Prominent echogenic bile in the gallbladder lumen. No appreciable shadowing gallstones, gallbladder wall thickening, or pericholecystic fluid. CBD within normal limits for size at 5 to 6 mm.
--- NOTE | ~2023-02-21 | XR_ITS ---
EXAMINATION: XR TOES, RIGHT CLINICAL INFORMATION: Right toe pain and swelling COMPARISON: None available. TECHNIQUE: 3 views of the right toes were obtained. FINDINGS: No fracture or dislocation seen. MCP joints maintained. There is a lucency in the dorsal aspect of distal phalanx of the great toe which could reflect previous posttraumatic change or an erosion. Clinical correlation recommended. XR/XR toe RT min 2V IMPRESSION: Small lucency in the cortex of the dorsal aspect of distal phalanx of the great toe on the lateral view which could reflect previous posttraumatic change versus an erosion in the appropriate clinical circumstances. Clinical correlation recommended.
[2023-02-21 08:39] VITALS: BP 147/96; PULSE 85; RESP 19; TEMP 36.6; O2SAT 98; BMI 44.4
--- NOTE | 2023-02-21 08:56 | ED_ITS ---
HPI - Abdominal Pain General Chief Complaint: Abdominal Pain Stated Complaint: Abd pain, swollen toe Time Seen by Provider: 02/21/23 08:51 Source: patient, old records reviewed and diplomatic interpreter/translator Mode of arrival: ambulatory Limitations: no limitations History of Present Illness HPI narrative: 32 yo male with 8th visits for biliary colic since the summer - who presents again with RUQ pain after eating a burrito yesterday. He has been seen for this several times. States he has appointment next year with surgeon but doesn't know date and doesn't know the surgeon's name. He reports nausea but no fevers. He also notes pain in R great toe at the start of the weekend - no trauma, did have a drink or two but nothing heavy over the holiday and does not have a history of gout. MD elicited complaint: abdominal pain Pertinent past history: other (gallstones) Onset (ago): month(s) Pain Consistency: intermittent and colicky Location: RUQ Severity: similar to previous episodes Quality: aching Radiation: none Migration to: no migration Exacerbating factors: eating Relieving factors: nothing Context: history of similar episodes Associated symptoms: nausea Related Data Previous Rx's Medication Instructions Recorded meclizine 25 mg tablet 25 mg PO DAILY dizziness #20 tabs 04/14/20 acetaminophen 325 mg tablet 325 mg PO QID PRN pain #90 tabs 03/31/21 (Tylenol) cyclobenzaprine 5 mg tablet 5 mg PO BEDTIME PRN muscle spasm 03/31/21 #20 tabs ibuprofen 400 mg tablet 400 mg PO Q6H PRN Pain #60 tabs 03/31/21 lidocaine 5 % topical patch 1 patch topical DAILY back pain 03/31/21 #30 ea pantoprazole 40 mg tablet,delayed 40 mg PO DAILY #14 tabs 09/18/22 release (Protonix) aluminum-mag hydroxide-simethicone 5 ml PO 5XD PRN dyspepsia #30 mL 10/07/22 200 mg-200 mg-20 mg/5 mL oral susp (Maalox Advanced) amlodipine 10 mg tablet 10 mg PO DAILY 30 days #30 tabs 10/07/22 famotidine 20 mg tablet (Pepcid) 20 mg PO DAILY #14 tabs 10/07/22 pantoprazole 40 mg tablet,delayed 40 mg PO DAILY #20 tabs 11/06/22 release (Protonix) ibuprofen 400 mg tablet 400 mg PO TID PRN fever or pain 12/30/22 #30 tabs ondansetron 4 mg disintegrating 4 mg PO Q6-8H PRN nausea and 12/30/22 tablet vomiting #14 tabs oxycodone 5 mg tablet 5 mg PO Q6H PRN pain #14 tabs 12/30/22 ondansetron 4 mg disintegrating 4 mg PO Q8H PRN nausea and 02/07/23 tablet vomiting #10 tabs pantoprazole 40 mg tablet,delayed 40 mg PO DAILY #14 tabs 02/07/23 release morphine 15 mg immediate release 15 mg PO Q6H PRN pain #10 tabs 02/21/23 tablet ondansetron 4 mg disintegrating 4 mg PO Q8H PRN nausea and 02/21/23 tablet vomiting #20 tabs prednisone 20 mg tablet 40 mg (2 x 20 mg) PO DAILY 5 days 02/21/23 #10 tabs Allergies Allergy/AdvReac Type Severity Reaction Status Date / Time No Known Allergies Allergy Verified 02/21/23 08:38 Review of Systems Review of Systems Constitutional : No Weight loss, No Fever, No Chills ENT/Mouth : No sore throat, No Rhinorrhea Eyes: No Swelling, No Redness Cardiovascular : No Chest Pain, No SOB, NoEdema Respiratory : No Cough, No Sputum, No Wheezing Gastrointestinal : Positive Nausea, no Vomiting, no Diarrhea, positive abdominal Pain, No Hematochezia, No Melena Genitourinary : No Dysuria, No Urinary Frequency, No Hematuria, No Urgency Musculoskeletal : pos joint pain, No Myalgias, pos Joint Swelling Skin : No Skin Lesions, No rash Neuro : No Weakness, No Numbness, No Dizziness, No Headache Psych : No Anxiety/Panic, No Depression Heme/Lymph: No Bruising, No Lymphadenopathy Endocrine : No Polyuria, No Polydipsia All other systems reviewed and are negative. [facility] Past Medical History Attestation statement: The following information was validated with the patient. Source: old records reviewed Medical History GERD (gastroesophageal reflux disease) HTN (hypertension) Gallstones Social History Social History Alcohol intake: current Alcohol intake frequency: holidays/special occasions only Alcohol type: hard liquor Smoked in Last 30 Days: Yes Use of substances other than those prescribed or required for medical reasons: No Advance Directives: No Physical Exam ED Vital Signs: Vital Signs - 24 hr 02/21/23 08:39 02/21/23 11:19 Temperature 98 F 98.2 F Pulse Rate 85 78 Respiratory Rate 19 17 Blood Pressure 147/96 H 138/63 Pulse Oximetry 98 96 Oxygen Delivery Method Room Air Room Air BMI result Body Mass Index 44.4 Appearance: Alert. Oriented X3. No acute distress. Eyes: Pupils equal, round and reactive to light. ENT: Pharynx normal. Neck: Normal inspection. Neck supple. CVS: Normal heart rate and rhythm. Pulses normal. Respiratory: No respiratory distress. Breath sounds normal. Abdomen: Soft and ttp in RUQ neg Nava's sign Skin: Skin warm and dry. Normal skin color. Normal skin turgor. Extremities: No lower extremity edema. R great toe redness, warmth and swelling at MCP joint no other signs of infection or swelling - distal NV intact Neuro: Oriented X 3. No motor deficit. No sensory deficit. Course Course Course Narrative: call to surgery department he has no appointments and no follow up is scheduled they have no record of him in the clinic for future appointments Reevaluation(s) Reevaluation #1: CT scan given change in LFTs for possible stone missed on US or passed stone refusing IV contrast Medical Decision Making Medical Decision Making [facility] Narrative: 32 yo male with PMH of biliary colic, HTN, GERD here with c/o RUQ pain in setting of eating a burrito with nausea has known biliary colic but is not following low fat diet and doesn't seem to know when he has appointment. He also has R great toe pain and swelling consistent with podagra. I do not suspect cellulitis or abscess - will obtain uric acid and xray. PO morphine, labs, US ordered for RUQ pain. Differential Diagnosis Differential Diagnoses: The differential diagnosis associated with the presentation includes biliary colic, gout, chronic abdominal pain, pancreatitis, gastritis Admission/Observation Consideration of admission/observation: Escalation of care including admission/observation considered not toxic, stable for outpatient management and follow up with surgery Lab Data [facility] Lab Attestation statement: I reviewed the patient's lab results. 02/21/23 09:29 02/21/23 09:29 Labs: Lab Results 02/21/23 Range/Units 09:29 WBC 6.3 (4.8-10.8) X10*3/uL RBC 5.45 (4.60-5.80) X10*6/uL Hgb 15.5 (14.0-18.0) g/dl Hct 43.9 (42.0-52.0) % MCV 80.6 (80.0-98.0) fL MCH 28.4 (27.0-33.0) pg MCHC 35.3 (31.0-36.0) g/dl RDW 12.9 (11.0-16.0) % Plt Count 328 (160-400) X10*3/uL MPV 9.4 (9.4-12.4) fL Immature Gran % (Auto) 0.5 H (0.0-0.4) % Neut % (Auto) 76.6 H (45-73) % Lymph % (Auto) 11.5 L (20-40) % [place] % (Auto) 8.8 (2-11) % Eos % (Auto) 1.7 (0-4) % Baso % (Auto) 0.9 (0-2) % Lymph # (Auto) 0.7 L (1.2-4.9) X10*3/uL [place] # (Auto) 0.6 (0.1-1.2) X10*3/uL Eos # (Auto) 0.1 (0.0-0.4) X10*3/uL Baso # (Auto) 0.1 (0.0-0.2) X10*3/uL Abs Immat Gran (auto) 0.03 (0.00-0.03) X10*3/uL Absolute Neuts (auto) 4.9 (2.0-8.3) x10*3/uL Absolute Nucleated RBC 0.000 (0.0-0.012) X10*3/uL Nucleated RBC % (auto) 0.0 (0.0-0.2) /100WBC Sodium 139 (135-145) mmol/L Potassium 3.8 (3.3-5.1) mmol/L Chloride 104 (96-108) mmol/L Carbon Dioxide 28 (22-29) mmol/L Anion Gap 11 L (12-20) BUN 12 (9-16) mg/dL Creatinine 1.02 (0.5-1.4) mg/dL Estim Creat Clear Calc 166.1 Estimated GFR > 60 Random Glucose 173 H (60-115) mg/dL Uric Acid 7.7 H (3.4-7.0) mg/dL Calcium 9.4 (8.4-10.2) mg/dL Magnesium 1.8 (1.6-2.6) mg/dL Total Bilirubin 1.5 H (0.0-1.0) mg/dL Direct Bilirubin 1.0 H (0.0-0.5) mg/dL AST 196 H (5-37) U/L ALT 191 H (0-40) U/L Alkaline Phosphatase 55 (39-117) U/L Total Protein 7.5 (6.5-8.0) g/dL Albumin 4.2 (3.5-5.0) g/dL Lipase 29 (8-78) U/L Ethyl Alcohol < 10 mg/dL Independent Interpretation I performed an independent interpretation of an: Plain X-Ray, Ultrasound (sludge) and CT Scan (no CBDstone) Radiology Impression Discussion of test interpretation with radiology: I have reviewed the radiologist's reading. External Record Review External record reviewed: Inpatient record Prescription Management I considered prescription management with: Pain Medication and Other Medications Administered Discontinued Medications Generic Name Dose Route Start Last Admin Trade Name Freq PRN Reason Stop Dose Admin Morphine Sulfate 15 mg 02/21/23 09:08 02/21/23 09:43 Morphine Sulfate Immed Release 15 Mg Tablet PO 02/21/23 09:09 15 mg ONCE ONE Administration Ondansetron HCl 4 mg 02/21/23 09:10 02/21/23 09:42 Ondansetron Odt 4 Mg Tab.Rapdis TRANSLINGU 02/21/23 09:11 4 mg ONCE ONE Administration Discharge Plan Discharge Clinical Impression: Biliary colic, Elevated liver enzymes Gout Qualifiers: Gout site: toe Gout etiology: unspecified cause Chronicity: acute Laterality: r ight Qualified Code(s): M10.9 - Gout, unspecified Patient Disposition: Home, Self-Care Instructions: Biliary Colic (ED), Gout (ED) Additional Instructions: you need to see a surgeon and eat a total low fat diet. please call tomorrow. all low fat diet. return for worsening pain, fevers, vomiting or any other concerns. avoid red meat and alcohol necesita nora a un cirujano y seguir annie dieta totalmente baja en grasas. por favor llame ma?abdullahi. toda dieta baja en grasas. Regrese si el dolor empeora, tiene fiebre, v?mitos o cualquier otra inquietud. Evite las monserrat chavez y el alcohol. Prescriptions: New prednisone 20 mg tablet 40 mg PO DAILY 5 Days Qty: 10 0RF morphine 15 mg tablet 15 mg PO Q6H PRN (Reason: pain) Qty: 10 0RF Rx Instructions: partial fill okay; Partial Fill upon patient request. ondansetron 4 mg tablet,disintegrating 4 mg PO Q8H PRN (Reason: nausea and vomiting) Qty: 20 0RF No Action meclizine 25 mg tablet 25 mg PO DAILY Qty: 20 0RF acetaminophen [Tylenol] 325 mg tablet 325 mg PO QID PRN (Reason: pain) Qty: 90 0RF lidocaine 5 % adhesive patch,medicated 1 patch topical DAILY Qty: 30 0RF Rx Instructions: leave on most painful area for up to 12 hrs ibuprofen 400 mg tablet 400 mg PO Q6H PRN (Reason: Pain) Qty: 60 0RF cyclobenzaprine 5 mg tablet 5 mg PO BEDTIME PRN (Reason: muscle spasm) Qty: 20 0RF pantoprazole [Protonix] 40 mg tablet,delayed release (DR/EC) 40 mg PO DAILY Qty: 14 0RF amlodipine 10 mg tablet 10 mg PO DAILY 30 Days Qty: 30 0RF alum-mag hydroxide-simeth [Maalox Advanced] 200-200-20 mg/5 mL suspension 5 ml PO 5XD PRN (Reason: dyspepsia) Qty: 30 0RF Rx Instructions: administer between meals and at bedtime famotidine [Pepcid] 20 mg tablet 20 mg PO DAILY Qty: 14 0RF pantoprazole 40 mg tablet,delayed release (DR/EC) 40 mg PO DAILY Qty: 14 0RF ondansetron 4 mg tablet,disintegrating 4 mg PO Q8H PRN (Reason: nausea and vomiting) Qty: 10 0RF pantoprazole [Protonix] 40 mg tablet,delayed release (DR/EC) 40 mg PO DAILY Qty: 20 0RF ibuprofen 400 mg tablet 400 mg PO TID PRN (Reason: fever or pain) Qty: 30 0RF ondansetron 4 mg tablet,disintegrating 4 mg PO Q6-8H PRN (Reason: nausea and vomiting) Qty: 14 0RF oxycodone 5 mg tablet 5 mg PO Q6H PRN (Reason: pain) Qty: 14 0RF Rx Instructions: Patient may request partial refill; Partial Fill upon patient request. Referrals: Edilson Rojas MD [Physician] - 2 days (call to schedule appointment) Stand Alone Forms: Work/School Release Print Language: Palestinian
[2023-02-21] MEDS: Ondansetron ODT 4 MG TAB.RAPDIS TRANSLINGU (09:42)
[2023-02-21] MEDS: Morphine Sulfate Immed Release 15 MG TABLET PO (09:43)
--- NOTE | 2023-02-21 09:45 | PC.NURSE ---
PT IS A/O X 4 NO SOB/BEN SPEAKS IN FULL SENTENCES. PT IS C/O RUQ ABD PAIN 12/03. PT HAD BEDSIDE ULTRASOUND DONE. PT C/O R GREAT TOE SWELLING/REDNESS/PAIN, X-RAY DONE AT BEDSIDE. PT MED X 1 WITH ZOFRAN 4MG SL AND MORPHINE 15MG PO. PT AWARE OF PLAN OF CARE.
[2023-02-21 09:46] LABS: MANUAL DIFF FLAG NO
[2023-02-21 09:48] LABS: Basophils Absolute Auto 0.1 X10*3/uL (0.0-0.2); Basophils Percent Auto 0.9 % (0-2); Eosinophils Absolute Auto 0.1 X10*3/uL (0.0-0.4); Eosinophils Percent Auto 1.7 % (0-4); Hematocrit 43.9 % (42.0-52.0); Hemoglobin 15.5 g/dl (14.0-18.0); Imm Gran Abs Auto 0.03 X10*3/uL (0.00-0.03); Imm Gran Pct Auto 0.5 % (0.0-0.4); Lymphocytes Absolute Auto 0.7 X10*3/uL (1.2-4.9); Lymphocytes Percent Auto 11.5 % (20-40); Mean Corpuscular HGB Conc 35.3 g/dl (31.0-36.0); Mean Corpuscular Hemoglobin 28.4 pg (27.0-33.0); Mean Corpuscular Volume 80.6 fL (80.0-98.0); Mean Platelet Volume 9.4 fL (9.4-12.4); Monocytes Absolute Auto 0.6 X10*3/uL (0.1-1.2); Monocytes Percent Auto 8.8 % (2-11); Neutrophils Absolute Auto 4.9 x10*3/uL (2.0-8.3); Neutrophils Percent Auto 76.6 % (45-73); Platelet Count 328 X10*3/uL (160-400); Red Blood Count 5.45 X10*6/uL (4.60-5.80); Red Cell Distribution Width 12.9 % (11.0-16.0); White Blood Count 6.3 X10*3/uL (4.8-10.8)
[2023-02-21 10:26] LABS: Ethanol < 10 mg/dL
[2023-02-21 10:46] LABS: Alanine Aminotransferase 191 U/L (0-40); Albumin Level 4.2 g/dL (3.5-5.0); Alkaline Phosphatase 55 U/L (39-117); Anion Gap 11 (12-20); Aspartate Amino Transferase 196 U/L (5-37); Bilirubin Total 1.5 mg/dL (0.0-1.0); Blood Urea Nitrogen 12 mg/dL (9-16); Calcium 9.4 mg/dL (8.4-10.2); Carbon Dioxide 28 mmol/L (22-29); Chloride 104 mmol/L (96-108); Creatinine Clr Calc Pharmacy 166.1; Estimated Glomerular Filt Rate > 60; Glucose Random 173 mg/dL (60-115); Lipase 29 U/L (8-78); Magnesium 1.8 mg/dL (1.6-2.6); Potassium 3.8 mmol/L (3.3-5.1); Sodium 139 mmol/L (135-145); Total Protein 7.5 g/dL (6.5-8.0)
[2023-02-21 11:19] VITALS: BP 138/63; PULSE 78; RESP 17; TEMP 36.8; O2SAT 96
[2023-02-21 11:28] LABS: Uric Acid 7.7 mg/dL (3.4-7.0)
[2023-02-21 13:38] VITALS: BP 112/59; PULSE 72; RESP 17; TEMP 36.8; O2SAT 97
== END 2023-02-21 13:50 | disposition home or self-care (01) ==
PROVIDERS: Emergency Provider Emergency Medicine
DX: K80.50 Calculus of bile duct without cholangitis or cholecystitis without obstruction (principal); M10.9 Gout, unspecified; R10.11 Right upper quadrant pain; R79.89 Other specified abnormal findings of blood chemistry; M79.674 Pain in right toe(s); Z79.899 Other long term (current) drug therapy
CPT/HCPCS: 36415; 73660; 74176; 76705; 80048; 80076; 80307; 83690; 83735; 84550; 85025; 99284

== ENCOUNTER 2023-09-14 07:30 | Emergency (ER) | payer MEDICAID, SELFPAY ==
--- NOTE | 2023-09-14 | ECG_ITS ---
Test Reason : left arm pain Blood Pressure : / mmHG Vent. Rate : 102 BPM Atrial Rate : 102 BPM P-R Int : 142 ms QRS Dur : 090 ms QT Int : 354 ms P-R-T Axes : 057 027 -03 degrees QTc Int : 461 ms Sinus tachycardia Nonspecific T wave abnormality Abnormal ECG When compared to the previous EKG of No significant changes seen Referred By: Generic ED Physician Electronically Signed By:Aurelio Garner
--- NOTE | ~2023-09-14 | XR_ITS ---
EXAMINATION: XR SOFT TISSUE NECK CLINICAL INDICATION: Neck pain COMPARISON: None available. TECHNIQUE: 2 views of the soft tissue neck were obtained. FINDINGS: The craniocervical junction is normal. The dens is intact. There is straightening of the cervical lordosis. The vertebra have normal density, height and alignment. Small anterior vertebral osteophytes are noted at C4-C5, C5-C6 and C6-C7. There appears to be mild narrowing of disc space at C4-C5 and C5-C6. No erosions or syndesmophyte formation. The facet joints are normal. The visualized lung apices are normal. XR/XR soft tissue neck IMPRESSION: * No fracture or malalignment of the cervical spine. * There is mild spondylosis and lack of lordotic curvature of the cervical spine.
--- NOTE | ~2023-09-14 | XR_ITS ---
EXAMINATION: XR SHOULDER, LEFT CLINICAL INFORMATION: Left arm pain COMPARISON: Left shoulder radiograph 10/30/2013 TECHNIQUE: Three views of the left shoulder. FINDINGS: No acute fracture or dislocation. Glenohumeral and acromioclavicular alignment is anatomic with preserved joint space. No abnormal soft tissue calcifications. No acute soft tissue abnormality. XR/XR shoulder LT min 2V IMPRESSION: No acute fracture or dislocation.
[2023-09-14 07:33] VITALS: BP 197/100; PULSE 100; RESP 16; TEMP 36.2; O2SAT 96; BMI 101.1
[2023-09-14 08:25] VITALS: BP 175/111; PULSE 101; RESP 18; O2SAT 97
[2023-09-14 08:44] VITALS: BP 175/111
[2023-09-14] MEDS: amLODIPine Besylate 5 MG TABLET PO (08:44)
[2023-09-14] MEDS: Lidocaine 4 % Patch ADH..PATCH 1 PATCH TRANSDERMA (08:44)
[2023-09-14] MEDS: Cyclobenzaprine HCl 10 MG TABLET PO (08:44)
--- NOTE | 2023-09-14 08:45 | ED.EXTPRO ---
HPI - Extremity Problem General Chief complaint: Extremity Injury, Upper Stated complaint: neck and shoulder pain Time Seen by Provider: 09/14/23 08:02 Source: patient and conference interpreter Mode of arrival: ambulatory Limitations: no limitations History of Present Illness ED Provider: ESTRELLA RAMIRES Narrative: 33 yo male with PMH of HTN who is not on BP meds as he didn't like the PCP office in [place] due to it being dirty who comes in with c/o 2 months of L neck and shoulder pain but no numbness, weakness started after softball injury he has not sought care and it worsened 2 weeks ago but not related to new injury. He takes no medications for it. He is open to medications. MD Complaint: other (neck and L shoulder pain) Pain Consistency: intermittent Location: left and other (shoulder and neck pain) Quality: aching Radiation: distal Relieving factors: immobilization Exacerbating factors: range of motion and other (movement of neck) Context: other (started after softball injury) Related Data Previous Rx's ?Medication ?Instructions ?Recorded meclizine 25 mg tablet 25 mg PO DAILY dizziness #20 tabs 04/14/20 acetaminophen 325 mg tablet 325 mg PO QID PRN pain #90 tabs 03/31/21 (Tylenol) cyclobenzaprine 5 mg tablet 5 mg PO BEDTIME PRN muscle spasm 03/31/21 #20 tabs ibuprofen 400 mg tablet 400 mg PO Q6H PRN Pain #60 tabs 03/31/21 lidocaine 5 % topical patch 1 patch topical DAILY back pain 03/31/21 #30 ea pantoprazole 40 mg tablet,delayed 40 mg PO DAILY #14 tabs 09/18/22 release (Protonix) aluminum-mag hydroxide-simethicone 5 ml PO 5XD PRN dyspepsia #30 mL 10/07/22 200 mg-200 mg-20 mg/5 mL oral susp (Maalox Advanced) amlodipine 10 mg tablet 10 mg PO DAILY 30 days #30 tabs 10/07/22 famotidine 20 mg tablet (Pepcid) 20 mg PO DAILY #14 tabs 10/07/22 pantoprazole 40 mg tablet,delayed 40 mg PO DAILY #20 tabs 11/06/22 release (Protonix) ibuprofen 400 mg tablet 400 mg PO TID PRN fever or pain 12/30/22 #30 tabs ondansetron 4 mg disintegrating 4 mg PO Q6-8H PRN nausea and 12/30/22 tablet vomiting #14 tabs oxycodone 5 mg tablet 5 mg PO Q6H PRN pain #14 tabs 12/30/22 ondansetron 4 mg disintegrating 4 mg PO Q8H PRN nausea and 02/07/23 tablet vomiting #10 tabs pantoprazole 40 mg tablet,delayed 40 mg PO DAILY #14 tabs 02/07/23 release morphine 15 mg immediate release 15 mg PO Q6H PRN pain #10 tabs 02/21/23 tablet ondansetron 4 mg disintegrating 4 mg PO Q8H PRN nausea and 02/21/23 tablet vomiting #20 tabs prednisone 20 mg tablet 40 mg (2 x 20 mg) PO DAILY 5 days 02/21/23 #10 tabs amlodipine 5 mg tablet 5 mg PO DAILY #30 tabs 09/14/23 cyclobenzaprine 10 mg tablet 10 mg PO TID PRN muscle spasm #20 09/14/23 tabs lidocaine 5 % topical patch 1 patch topical DAILY #30 ea 09/14/23 Allergies Allergy/AdvReac Type Severity Reaction Status Date / Time No Known Allergies Allergy Verified 09/14/23 07:36 Review of Systems Review of Systems: Constitutional : No Fever, No Chills ENT/Mouth : No Ear Pain, No Hoarseness, No sore throat Eyes: No Eye Pain, No Swelling, No Redness, No Foreign Body Cardiovascular : No Chest Pain, No SOB Respiratory : No Cough, No Dyspnea Gastrointestinal : No Nausea, No Vomiting, No Diarrhea, No abdominal Pain Genitourinary : No Dysuria, No Hematuria Musculoskeletal : positive joint pain, No Myalgias, No Joint Swelling, pos neck pain Skin : No Skin lacerations, No rash Neuro : No Weakness, No Numbness, No Loss of Consciousness, No Dizziness, No Headache All other systems reviewed and are negative PMFSH Past Medical History Attestation statement: The following information was validated with the patient. Source: old records reviewed Medical History GERD (gastroesophageal reflux disease) HTN (hypertension) Gallstones Social History Social History (Updated 09/14/23 @ 08:48 by Farzana Her DO) Alcohol intake: current Alcohol intake frequency: holidays/special occasions only Alcohol type: hard liquor Patient Tobacco Use Status: Never used Tobacco Advance Directives: No Advance Directives Information Provided: No Do you have a plan to hurt others: No Plan Physical Exam Vital Signs: Vital Signs: Last Vital Signs Temp 97.2 F 09/14/23 07:33 Pulse 101 H 09/14/23 08:25 Resp 18 09/14/23 08:25 BP 175/111 H 09/14/23 08:44 Pulse Ox 97 09/14/23 08:25 O2 Del Method Room Air 09/14/23 08:25 BMI result Body Mass Index 101.1 Appearance: Alert. Oriented X3. No acute distress. Eyes: Pupils equal, round and reactive to light. ENT: Pharynx normal. Neck: L trapezius and lateral cervical spine ttp no mass or cellulitis seen - distal NV intact hurts to range L shoulder mosaic tiler 5/5 SILT intact 2+ radial pulse CVS: Normal heart rate and rhythm. Pulses normal. Respiratory: No respiratory distress. Breath sounds normal. Abdomen: Soft and non-tender. Skin: Skin warm and dry. Normal skin color. Normal skin turgor. Extremities: No lower extremity edema. Neuro: Oriented X 3. No motor deficit. No sensory deficit. Medications Administered Discontinued Medications Generic Name Dose Route Start Last Admin Trade Name Artemioq PRN Reason Stop Dose Admin Amlodipine Besylate 5 mg 09/14/23 08:31 09/14/23 08:44 Amlodipine Besylate 5 Mg Tablet PO 09/14/23 08:32 5 mg ONCE ONE Administration Protocol Cyclobenzaprine HCl 10 mg 09/14/23 08:31 09/14/23 08:44 Cyclobenzaprine Hcl 10 Mg Tablet PO 09/14/23 08:32 10 mg ONCE ONE Administration Lidocaine 1 patch 09/14/23 08:31 09/14/23 08:44 Lidocaine 4 % Patch Adh..Patch TRANSDERMA 09/14/23 08:32 1 patch ONCE ONE Administration Protocol Medical Decision Making Medical Decision Making MDM Narrative: 33 yo male with PMH of HTN here with c/o L shoulder and neck pain x 2 months worse of 2 weeks injury 2 months ago no new injury or manipulation he is NV intact at this time not toxic no signs of deficits no fevers no IVDA reported - will start on patches and muscle relaxers. He also has untreated asymptomatic HTN - will start on amlodipine. I do not think 2 months of pain is dissection that would be atypical. Differential Diagnosis Differential Diagnoses: The differential diagnosis associated with the presentation includes neck strain, shoulder sprain, rotator cuff untreated HTN Admission/Observation Consideration of admission/observation: Escalation of care including admission/observation considered asymptomatic HTN stable for DC Independent Interpretation I performed an independent interpretation of an: Plain X-Ray (no acute findings) Radiology Impression Discussion of test interpretation with radiology: I have reviewed the radiologist's reading. External Record Review External record reviewed: Outpatient record Prescription Management I considered prescription management with: Other Chronic Conditions Patient?s care impacted by: Hypertension Discharge Plan Discharge Clinical Impression: Trapezius muscle spasm Sprain of left shoulder Qualifiers: Encounter type: initial encounter Shoulder sprain type: unspecified sprain Qualified Code(s): S43.402A - Unspecified sprain of left shoulder joint, initial encounter Patient Disposition: Home, Self-Care Instructions: Cervical Strain (ED), Shoulder Sprain (ED) Additional Instructions: return for worsening symptoms, numbness weakness worsening symptoms or any other concerns please follow up with your doctor untreated blood pressure can lead to problems like kidney disease or stroke shoulder xray normal neck xray shows arthritis and degeneration of multiple areas but no fracture Prescriptions: New amlodipine 5 mg tablet 5 mg PO DAILY Qty: 30 1RF cyclobenzaprine 10 mg tablet 10 mg PO TID PRN (Reason: muscle spasm) Qty: 20 0RF lidocaine 5 % adhesive patch,medicated 1 patch topical DAILY Qty: 30 0RF Rx Instructions: leave on most painful area for up to 12 hrs No Action meclizine 25 mg tablet 25 mg PO DAILY Qty: 20 0RF acetaminophen [Tylenol] 325 mg tablet 325 mg PO QID PRN (Reason: pain) Qty: 90 0RF lidocaine 5 % adhesive patch,medicated 1 patch topical DAILY Qty: 30 0RF Rx Instructions: leave on most painful area for up to 12 hrs ibuprofen 400 mg tablet 400 mg PO Q6H PRN (Reason: Pain) Qty: 60 0RF cyclobenzaprine 5 mg tablet 5 mg PO BEDTIME PRN (Reason: muscle spasm) Qty: 20 0RF pantoprazole [Protonix] 40 mg tablet,delayed release (DR/EC) 40 mg PO DAILY Qty: 14 0RF amlodipine 10 mg tablet 10 mg PO DAILY 30 Days Qty: 30 0RF alum-mag hydroxide-simeth [Maalox Advanced] 200-200-20 mg/5 mL suspension 5 ml PO 5XD PRN (Reason: dyspepsia) Qty: 30 0RF Rx Instructions: administer between meals and at bedtime famotidine [Pepcid] 20 mg tablet 20 mg PO DAILY Qty: 14 0RF pantoprazole 40 mg tablet,delayed release (DR/EC) 40 mg PO DAILY Qty: 14 0RF ondansetron 4 mg tablet,disintegrating 4 mg PO Q8H PRN (Reason: nausea and vomiting) Qty: 10 0RF prednisone 20 mg tablet 40 mg PO DAILY 5 Days Qty: 10 0RF morphine 15 mg tablet 15 mg PO Q6H PRN (Reason: pain) Qty: 10 0RF Rx Instructions: partial fill okay; Partial Fill upon patient request. ondansetron 4 mg tablet,disintegrating 4 mg PO Q8H PRN (Reason: nausea and vomiting) Qty: 20 0RF pantoprazole [Protonix] 40 mg tablet,delayed release (DR/EC) 40 mg PO DAILY Qty: 20 0RF ibuprofen 400 mg tablet 400 mg PO TID PRN (Reason: fever or pain) Qty: 30 0RF ondansetron 4 mg tablet,disintegrating 4 mg PO Q6-8H PRN (Reason: nausea and vomiting) Qty: 14 0RF oxycodone 5 mg tablet 5 mg PO Q6H PRN (Reason: pain) Qty: 14 0RF Rx Instructions: Patient may request partial refill; Partial Fill upon patient request. Stand Alone Forms: Work/School Release Print Language: Luxembourgish
[2023-09-14 09:27] VITALS: BP 142/80; PULSE 93; RESP 20; O2SAT 97
[2023-09-14 09:40] VITALS: BP 142/80; PULSE 93; RESP 20; TEMP 36.2; O2SAT 97
== END 2023-09-14 09:42 | disposition home or self-care (01) ==
PROVIDERS: Emergency Provider Emergency Medicine
DX: M79.602 Pain in left arm (principal); M54.2 Cervicalgia; M25.512 Pain in left shoulder; R00.0 Tachycardia, unspecified
CPT/HCPCS: 70360; 73030; 93005; 99283; 99284

== ENCOUNTER → 2023-09-14 07:40 | Outpatient (BNV) | payer MEDICAID, SELFPAY | PROVIDERS: Emergency Provider Emergency Medicine; Visit Provider Internal Medicine Cardiovascular Disease | DX: R00.0 Tachycardia, unspecified (principal) | CPT/HCPCS: 93010 ==

== ENCOUNTER 2024-01-28 12:48 | Emergency (ER) | payer OTHER, SELFPAY ==
--- NOTE | ~2024-01-28 | CT_ITS ---
EXAMINATION: CT HEAD WITHOUT CONTRAST CLINICAL INFORMATION: headache, blurry vision, htn one week COMPARISON: CT dated October 07, 2022. TECHNIQUE: Contiguous axial imaging was performed from the skull base to vertex without intravenous administration of contrast. This CT examination was performed using dose optimization techniques as appropriate, variously including the following: *Automated exposure control *Adjustment of mA and/or kV according to patient size (this includes techniques or standardized protocols for targeted exams where dose is matched to indication/reason for exam; i.e. extremities or head) *Use of iterative reconstruction technique DLP: 884 mGy-cm FINDINGS: No acute intracranial hemorrhage, mass effect, midline shift, hydrocephalus or herniation. Cruz-white matter differentiation is normal. Posterior cranial fossa contents demonstrated no acute intracranial hemorrhage or mass effect. Sellar/suprasellar region demonstrated no gross masses. Tympanic cavities and mastoid cells are aerated. No air-fluid levels in the paranasal sinuses. CT/CT head/brain wo IV con IMPRESSION: No acute or structural brain abnormality. Electronically signed by: Geovanni Alexander MD 01/28/2024 02:26 PM JW
[2024-01-28 13:14] VITALS: BP 154/90; PULSE 105; RESP 20; TEMP 37; O2SAT 97; BMI 47.5
--- NOTE | 2024-01-28 13:20 | ECG_ITS ---
Test Reason : CP Blood Pressure : / mmHG Vent. Rate : 094 BPM Atrial Rate : 416 BPM P-R Int : 000 ms QRS Dur : 088 ms QT Int : 376 ms P-R-T Axes : 128 189 120 degrees QTc Int : 470 ms Suspect limb lead reversal, interpretation assumes no reversal Atrial flutter Right superior axis deviation Nonspecific T wave abnormality Prolonged QT Abnormal ECG When compared with ECG of 14-SEP-2023 07:40, Atrial flutter has replaced Sinus rhythm Questionable change in QRS axis Referred By: Tremayne Melo Electronically Signed By:
--- NOTE | 2024-01-28 13:22 | ED.GENADULT ---
HPI - General Adult General Chief complaint: General Medical Stated complaint: high blood pressure no medication Time Seen by Provider: 01/28/24 16:03 Source: patient Mode of arrival: ambulatory Limitations: no limitations History of Present Illness ED Provider: Dr. Nikki Wong HPI narrative: Patient comes to the emergency room complaining of 1 week of lightheadedness, blurred vision, not feeling well, nausea, complaining of drinking a fluid being thirsty all the time and urinating quite a bit. Patient states that he has not been diagnosed with diabetes, patient states that in the past he used to weigh close to 500 lb, patient lost weight, was doing well and over the last few months regained some weight. Patient does not take any medications. Patient states that he has been diagnosed with hypertension, he was supposed to follow-up with the PCP, he never did and ran out of medications. Related Data Previous Rx's ?Medication ?Instructions ?Recorded meclizine 25 mg tablet 25 mg PO DAILY dizziness #20 tabs 04/14/20 acetaminophen 325 mg tablet 325 mg PO QID PRN pain #90 tabs 03/31/21 (Tylenol) cyclobenzaprine 5 mg tablet 5 mg PO BEDTIME PRN muscle spasm 03/31/21 #20 tabs ibuprofen 400 mg tablet 400 mg PO Q6H PRN Pain #60 tabs 03/31/21 lidocaine 5 % topical patch 1 patch topical DAILY back pain 03/31/21 #30 ea pantoprazole 40 mg tablet,delayed 40 mg PO DAILY #14 tabs 09/18/22 release (Protonix) aluminum-mag hydroxide-simethicone 5 ml PO 5XD PRN dyspepsia #30 mL 10/07/22 200 mg-200 mg-20 mg/5 mL oral susp (Maalox Advanced) amlodipine 10 mg tablet 10 mg PO DAILY 30 days #30 tabs 10/07/22 famotidine 20 mg tablet (Pepcid) 20 mg PO DAILY #14 tabs 10/07/22 pantoprazole 40 mg tablet,delayed 40 mg PO DAILY #20 tabs 11/06/22 release (Protonix) ibuprofen 400 mg tablet 400 mg PO TID PRN fever or pain 12/30/22 #30 tabs ondansetron 4 mg disintegrating 4 mg PO Q6-8H PRN nausea and 12/30/22 tablet vomiting #14 tabs oxycodone 5 mg tablet 5 mg PO Q6H PRN pain #14 tabs 12/30/22 ondansetron 4 mg disintegrating 4 mg PO Q8H PRN nausea and 02/07/23 tablet vomiting #10 tabs pantoprazole 40 mg tablet,delayed 40 mg PO DAILY #14 tabs 02/07/23 release morphine 15 mg immediate release 15 mg PO Q6H PRN pain #10 tabs 02/21/23 tablet ondansetron 4 mg disintegrating 4 mg PO Q8H PRN nausea and 02/21/23 tablet vomiting #20 tabs prednisone 20 mg tablet 40 mg (2 x 20 mg) PO DAILY 5 days 02/21/23 #10 tabs amlodipine 5 mg tablet 5 mg PO DAILY #30 tabs 09/14/23 cyclobenzaprine 10 mg tablet 10 mg PO TID PRN muscle spasm #20 09/14/23 tabs lidocaine 5 % topical patch 1 patch topical DAILY #30 ea 09/14/23 amlodipine 10 mg tablet 10 mg PO DAILY #90 tabs 01/28/24 metformin 500 mg tablet 500 mg PO BID #90 tabs 01/28/24 ondansetron HCl 4 mg tablet 4 mg PO Q6H PRN nausea and 01/28/24 vomiting #14 tabs simethicone 180 mg capsule 180 mg PO BID PRN abdominal 01/28/24 distention #30 caps Allergies Allergy/AdvReac Type Severity Reaction Status Date / Time No Known Allergies Allergy Verified 01/28/24 13:15 Review of Systems Review of Systems: Constitutional : No Weight loss, No Fever, No Chills, No Night Sweats, No Fatigue, No Malaise ENT/Mouth : No Hearing loss, No Ear Pain, No Nasal Congestion, No Sinus Pain, No Hoarseness, No sore throat, No Rhinorrhea, No Swallowing Difficulty Eyes: No Eye Pain, No Swelling, No Redness, No Foreign Body, No Discharge, No Vision Changes Cardiovascular : No Chest Pain, No SOB, No Dyspnea on Exertion, No Orthopnea, No Edema, No Palpitations Respiratory : No Cough, No Sputum, No Wheezing, No Smoke Exposure, No Dyspnea Gastrointestinal : Complaining of nausea, no vomiting No Diarrhea, No Constipation, No abdominal Pain, No Hematochezia, complaining of feeling distended and gassy Genitourinary : Complaining of being thirsty and urinating quite a bit over the last week, No Dysuria, No Urinary Frequency, No Hematuria, No Urinary Incontinence, No Urgency, No Flank Pain, No Urinary Flow Changes, No Hesitancy Musculoskeletal : No joint pain, No Myalgias, No Joint Swelling Skin : No Skin Lesions, No rash Neuro : No Weakness, No Numbness, No Paresthesias, No Loss of Consciousness, No Dizziness, No Headache Psych : No Anxiety/Panic, No Depression, No SI/HI/AH/VH, No Social Issues, Heme/Lymph: No Bruising, No Bleeding,No Lymphadenopathy Endocrine : Complaining of polyuria and polydipsia, frequent urination, no temperature changes PMFSH Past Medical History Medical History GERD (gastroesophageal reflux disease) HTN (hypertension) Gallstones Social History Social History (Updated 09/14/23 @ 08:48 by Farzana Her DO) Alcohol intake: current Alcohol intake frequency: holidays/special occasions only Alcohol type: hard liquor Patient Tobacco Use Status: Never used Tobacco Smoked in Last 30 Days: Yes Use of substances other than those prescribed or required for medical reasons: Yes Substance Use Type: Marijuana Advance Directives: No Advance Directives Information Provided: Yes Physical Exam ED Vital Signs: Vital Signs - 24 hr 01/28/24 13:14 01/28/24 15:39 01/28/24 19:23 Temperature 98.6 F 98.1 F 97.7 F Pulse Rate 105 H 90 78 Respiratory Rate 20 18 18 Blood Pressure 154/90 H 141/84 H 128/74 Pulse Oximetry 97 97 96 Oxygen Delivery Method Room Air Room Air Room Air 01/28/24 20:11 Temperature 97.7 F Pulse Rate 78 Respiratory Rate 18 Blood Pressure 128/74 Pulse Oximetry 96 Oxygen Delivery Method Room Air BMI result Body Mass Index 47.5 Const Other: Appearance: Alert. Oriented X3. No acute distress. Eyes: Pupils equal, round and reactive to light. ENT: Pharynx normal. Neck: Normal inspection. Neck supple. No lymph nodes noted. No crepitus CVS: Normal heart rate and rhythm. Pulses normal. Normal S1 and S2 Respiratory: No respiratory distress. Breath sounds normal. No Wheezing. No rales Abdomen: Soft and nontender. No rigidity. No distention. Skin: Skin warm and dry. Normal skin color. Normal skin turgor. Extremities: No lower extremity edema. No Lacerations. No Rash Neuro: Oriented X 3. No motor deficit. No sensory deficit. Moving all extremities. No slurred speech. CN 2 through 12 grossly intact Psych: calm, cooperative, normal affect Course Course Course Narrative: RME: 53-year-old male history of high blood pressure has not been on blood pressure medication for awhile presents to ED for headache, dizziness, nausea, and chest palpitation for 7 days with blurry vision. NIH score is 0. Negative neuro deficits. Medications Administered Discontinued Medications Generic Name Dose Route Start Last Admin Trade Name Freq PRN Reason Stop Dose Admin Sodium Chloride 1,000 mls @ 999 mls/hr 01/28/24 16:19 01/28/24 20:11 Ns IVCONT 01/28/24 17:19 Infused .Q1H1M ONE Infusion Ibuprofen 800 mg 01/28/24 20:12 01/28/24 20:16 Ibuprofen 800 Mg Tablet PO 01/28/24 20:13 800 mg ONCE ONE Administration Insulin Human Regular 5 unit 01/28/24 16:19 01/28/24 16:30 Insulin Regular, Human 100 Unit/Ml 10 Ml Vial IVPUSH 01/28/24 16:20 5 unit ONCE ONE Administration Ondansetron HCl 4 mg 01/28/24 16:20 01/28/24 16:30 Ondansetron Hcl 4 Mg/2 Ml Vial IVPUSH 01/28/24 16:21 4 mg ONCE ONE Administration Simethicone 160 mg 01/28/24 16:20 01/28/24 16:32 Simethicone 80 Mg Tab.Chew PO 01/28/24 16:21 160 mg ONCE ONE Administration Medical Decision Making Medical Decision Making [facility] Narrative: I discussed the labs with the patient, patient's glucose is 495. Patient has never been diagnosed with diabetes. Patient's hemoglobin A1c is 9.4, beta hydroxybutyrate negative, within normal limits. TSH 2.74, troponin normal. -my interpretation of EKG: Normal sinus rhythm, agreed 95, no ST segment depression or elevation, no T-wave inversion, QTC 469 -patient receiving IV fluids and insulin. -patient's glucose improved to 288. -patient will be started on metformin twice a day, also with glycerin on high blood pressure medications. Patient will call tomorrow to make an appointment with a new PCP. Discussed with the patient that it may be 2-3 months until he sees a PCP. In the meantime, he can follow-up at the walk-in clinic, information provided to the patient. Differential Diagnosis Differential Diagnoses: The differential diagnosis associated with the presentation includes (Diabetes, high blood pressure.) Admission/Observation Consideration of admission/observation: Escalation of care including admission/observation considered (Given patient's symptoms, new onset diabetes, observation/admission was considered) Lab Data MDM Lab Attestation statement: I reviewed the patient's lab results. 01/28/24 13:58 01/28/24 13:59 Labs: Lab Results 01/28/24 01/28/24 01/28/24 Range/Units 13:58 13:59 15:49 WBC 7.2 (4.8-10.8) X10*3/uL RBC 5.31 (4.60-5.80) X10*6/uL Hgb 15.1 (14.0-18.0) g/dl Hct 42.5 (42.0-52.0) % MCV 80.0 (80.0-98.0) fL MCH 28.4 (27.0-33.0) pg MCHC 35.5 (31.0-36.0) g/dl RDW 12.6 (11.0-16.0) % Plt Count 257 (160-400) X10*3/uL MPV 9.9 (9.4-12.4) fL Immature Gran % (Auto) 0.4 (0.0-0.4) % Neut % (Auto) 64.9 (45-73) % Lymph % (Auto) 23.6 (20-40) % [place] % (Auto) 7.7 (2-11) % Eos % (Auto) 2.4 (0-4) % Baso % (Auto) 1.0 (0-2) % Lymph # (Auto) 1.7 (1.2-4.9) X10*3/uL [place] # (Auto) 0.6 (0.1-1.2) X10*3/uL Eos # (Auto) 0.2 (0.0-0.4) X10*3/uL Baso # (Auto) 0.1 (0.0-0.2) X10*3/uL Abs Immat Gran (auto) 0.03 (0.00-0.03) X10*3/uL Absolute Neuts (auto) 4.7 (2.0-8.3) x10*3/uL Absolute Nucleated RBC 0.000 (0.0-0.012) X10*3/uL Nucleated RBC % (auto) 0.0 (0.0-0.2) /100WBC PT 11.5 (10.9-12.4) SEC INR 1.0 (0.9-1.1) APTT 29.9 (26.0-36.8) SEC Sodium 136 (135-145) mmol/L Potassium 4.0 (3.3-5.1) mmol/L Chloride 100 (96-108) mmol/L Carbon Dioxide 25 (22-29) mmol/L Anion Gap 15 (12-20) BUN 13 (9-16) mg/dL Creatinine 1.36 (0.5-1.4) mg/dL Estim Creat Clear Calc 128.2 Estimated GFR 60 POC Glucose 499 H* (60-115) mg/dL Random Glucose 495 H* (60-115) mg/dL Estimat Average Glucose 223 mg/dL Hemoglobin A1c % 9.4 H (<6.0) % Calcium 9.4 (8.4-10.2) mg/dL Total Bilirubin 0.5 (0.0-1.0) mg/dL AST 74 H (5-37) U/L ALT 154 H (0-40) U/L Alkaline Phosphatase 59 (39-117) U/L Troponin I High Sens 8.7 D (<3.5-35.0) ng/L B-Natriuretic Peptide 17 (<100) pg/mL Total Protein 7.1 (6.5-8.0) g/dL Albumin 4.1 (3.5-5.0) g/dL Beta-Hydroxybutyrate 0.08 (0.02-0.27) mmol/L TSH 2.67 2.74 (0.32-4.0) uIU/mL 01/28/24 01/28/24 Range/Units 17:44 19:20 WBC (4.8-10.8) X10*3/uL RBC (4.60-5.80) X10*6/uL Hgb (14.0-18.0) g/dl Hct (42.0-52.0) % MCV (80.0-98.0) fL MCH (27.0-33.0) pg MCHC (31.0-36.0) g/dl RDW (11.0-16.0) % Plt Count (160-400) X10*3/uL MPV (9.4-12.4) fL Immature Gran % (Auto) (0.0-0.4) % Neut % (Auto) (45-73) % Lymph % (Auto) (20-40) % [place] % (Auto) (2-11) % Eos % (Auto) (0-4) % Baso % (Auto) (0-2) % Lymph # (Auto) (1.2-4.9) X10*3/uL [place] # (Auto) (0.1-1.2) X10*3/uL Eos # (Auto) (0.0-0.4) X10*3/uL Baso # (Auto) (0.0-0.2) X10*3/uL Abs Immat Gran (auto) (0.00-0.03) X10*3/uL Absolute Neuts (auto) (2.0-8.3) x10*3/uL Absolute Nucleated RBC (0.0-0.012) X10*3/uL Nucleated RBC % (auto) (0.0-0.2) /100WBC PT (10.9-12.4) SEC INR (0.9-1.1) APTT (26.0-36.8) SEC Sodium (135-145) mmol/L Potassium (3.3-5.1) mmol/L Chloride (96-108) mmol/L Carbon Dioxide (22-29) mmol/L Anion Gap (12-20) BUN (9-16) mg/dL Creatinine (0.5-1.4) mg/dL Estim Creat Clear Calc Estimated GFR POC Glucose 332 H 280 H (60-115) mg/dL Random Glucose (60-115) mg/dL Estimat Average Glucose mg/dL Hemoglobin A1c % (<6.0) % Calcium (8.4-10.2) mg/dL Total Bilirubin (0.0-1.0) mg/dL AST (5-37) U/L ALT (0-40) U/L Alkaline Phosphatase (39-117) U/L Troponin I High Sens (<3.5-35.0) ng/L B-Natriuretic Peptide (<100) pg/mL Total Protein (6.5-8.0) g/dL Albumin (3.5-5.0) g/dL Beta-Hydroxybutyrate (0.02-0.27) mmol/L TSH (0.32-4.0) uIU/mL Independent Interpretation I performed an independent interpretation of an: CT Scan Radiology Impression Discussion of test interpretation with radiology: I have reviewed the radiologist's reading. Radiologist Impression: No acute intracranial hemorrhage, mass effect, midline shift, hydrocephalus or herniation. Cruz-white matter differentiation is normal. Posterior cranial fossa contents demonstrated no acute intracranial hemorrhage or mass effect. Sellar/suprasellar region demonstrated no gross masses. Tympanic cavities and mastoid cells are aerated. No air-fluid levels in the paranasal sinuses. CT/CT head/brain wo IV con IMPRESSION: No acute or structural brain abnormality. Critical Care Time Critical Care Time Critical Care Time: Yes Total Critical Care Time: 45 Attestation: I have personally provided critical care time. Time includes review of lab data, radiology results, discussion with consultants, and monitoring for potential decompensation. Intervention performed as documented. Discharge Plan Discharge Clinical Impression: New onset type 2 diabetes mellitus, Hypertension Patient Disposition: Home, Self-Care Instructions: Type 2 Diabetes in Adults: New Diagnosis (ED), Meal Planning with Diabetes Exchanges (DC), DASH Eating Plan (ED), Hypertension (ED), Hypertension and Diabetes (ED), Diabetes and Nutrition (ED) Prescriptions: New metformin 500 mg tablet 500 mg PO BID Qty: 90 0RF amlodipine 10 mg tablet 10 mg PO DAILY Qty: 90 0RF ondansetron HCl 4 mg tablet 4 mg PO Q6H PRN (Reason: nausea and vomiting) Qty: 14 0RF simethicone 180 mg capsule 180 mg PO BID PRN (Reason: abdominal distention) Qty: 30 0RF No Action meclizine 25 mg tablet 25 mg PO DAILY Qty: 20 0RF acetaminophen [Tylenol] 325 mg tablet 325 mg PO QID PRN (Reason: pain) Qty: 90 0RF lidocaine 5 % adhesive patch,medicated 1 patch topical DAILY Qty: 30 0RF Rx Instructions: leave on most painful area for up to 12 hrs ibuprofen 400 mg tablet 400 mg PO Q6H PRN (Reason: Pain) Qty: 60 0RF cyclobenzaprine 5 mg tablet 5 mg PO BEDTIME PRN (Reason: muscle spasm) Qty: 20 0RF pantoprazole [Protonix] 40 mg tablet,delayed release (DR/EC) 40 mg PO DAILY Qty: 14 0RF amlodipine 10 mg tablet 10 mg PO DAILY 30 Days Qty: 30 0RF alum-mag hydroxide-simeth [Maalox Advanced] 200-200-20 mg/5 mL suspension 5 ml PO 5XD PRN (Reason: dyspepsia) Qty: 30 0RF Rx Instructions: administer between meals and at bedtime famotidine [Pepcid] 20 mg tablet 20 mg PO DAILY Qty: 14 0RF pantoprazole 40 mg tablet,delayed release (DR/EC) 40 mg PO DAILY Qty: 14 0RF ondansetron 4 mg tablet,disintegrating 4 mg PO Q8H PRN (Reason: nausea and vomiting) Qty: 10 0RF prednisone 20 mg tablet 40 mg PO DAILY 5 Days Qty: 10 0RF morphine 15 mg tablet 15 mg PO Q6H PRN (Reason: pain) Qty: 10 0RF Rx Instructions: partial fill okay; Partial Fill upon patient request. ondansetron 4 mg tablet,disintegrating 4 mg PO Q8H PRN (Reason: nausea and vomiting) Qty: 20 0RF pantoprazole [Protonix] 40 mg tablet,delayed release (DR/EC) 40 mg PO DAILY Qty: 20 0RF ibuprofen 400 mg tablet 400 mg PO TID PRN (Reason: fever or pain) Qty: 30 0RF ondansetron 4 mg tablet,disintegrating 4 mg PO Q6-8H PRN (Reason: nausea and vomiting) Qty: 14 0RF oxycodone 5 mg tablet 5 mg PO Q6H PRN (Reason: pain) Qty: 14 0RF Rx Instructions: Patient may request partial refill; Partial Fill upon patient request. amlodipine 5 mg tablet 5 mg PO DAILY Qty: 30 1RF cyclobenzaprine 10 mg tablet 10 mg PO TID PRN (Reason: muscle spasm) Qty: 20 0RF lidocaine 5 % adhesive patch,medicated 1 patch topical DAILY Qty: 30 0RF Rx Instructions: leave on most painful area for up to 12 hrs Interventions: ED Discharge Assessment Last Done: 01/28/24 20:11 Discharge Date/Time: 01/28/24 20:20 Print Language: Kyrgyz
--- NOTE | 2024-01-28 13:52 | MHC.EDTECH ---
EKG ifor chest pain is behind the 10 minute limit due to pt insisting to use the rest room and did not come out for 18 minuets
[2024-01-28 14:02] LABS: MANUAL DIFF FLAG NO
[2024-01-28 14:04] LABS: Basophils Absolute Auto 0.1 X10*3/uL (0.0-0.2); Eosinophils Absolute Auto 0.2 X10*3/uL (0.0-0.4); Eosinophils Percent Auto 2.4 % (0-4); Hematocrit 42.5 % (42.0-52.0); Hemoglobin 15.1 g/dl (14.0-18.0); Imm Gran Abs Auto 0.03 X10*3/uL (0.00-0.03); Imm Gran Pct Auto 0.4 % (0.0-0.4); Lymphocytes Absolute Auto 1.7 X10*3/uL (1.2-4.9); Lymphocytes Percent Auto 23.6 % (20-40); Mean Corpuscular HGB Conc 35.5 g/dl (31.0-36.0); Mean Corpuscular Hemoglobin 28.4 pg (27.0-33.0); Mean Platelet Volume 9.9 fL (9.4-12.4); Monocytes Absolute Auto 0.6 X10*3/uL (0.1-1.2); Monocytes Percent Auto 7.7 % (2-11); Neutrophils Absolute Auto 4.7 x10*3/uL (2.0-8.3); Neutrophils Percent Auto 64.9 % (45-73); Platelet Count 257 X10*3/uL (160-400); Red Blood Count 5.31 X10*6/uL (4.60-5.80); Red Cell Distribution Width 12.6 % (11.0-16.0); White Blood Count 7.2 X10*3/uL (4.8-10.8)
[2024-01-28 14:10] LABS: Prothrombin Time 11.5 SEC (10.9-12.4)
[2024-01-28 14:13] LABS: Partial Thromboplastin Time 29.9 SEC (26.0-36.8)
[2024-01-28 14:25] LABS: B Type Natriuretic Peptide 17 pg/mL (<100)
[2024-01-28 14:26] LABS: Troponin-I High Sensitivity 8.7 ng/L (<3.5-35.0)
[2024-01-28 14:31] LABS: Alanine Aminotransferase 154 U/L (0-40); Albumin Level 4.1 g/dL (3.5-5.0); Alkaline Phosphatase 59 U/L (39-117); Anion Gap 15 (12-20); Aspartate Amino Transferase 74 U/L (5-37); Bilirubin Total 0.5 mg/dL (0.0-1.0); Blood Urea Nitrogen 13 mg/dL (9-16); Calcium 9.4 mg/dL (8.4-10.2); Carbon Dioxide 25 mmol/L (22-29); Chloride 100 mmol/L (96-108); Creatinine Clr Calc Pharmacy 128.2; Estimated Glomerular Filt Rate 60; Glucose Random 495 mg/dL (60-115); Sodium 136 mmol/L (135-145); Total Protein 7.1 g/dL (6.5-8.0)
[2024-01-28 14:40] LABS: TSH reflex Free T4 2.67 uIU/mL (0.32-4.0)
[2024-01-28 15:39] VITALS: BP 141/84; PULSE 90; RESP 18; TEMP 36.7; O2SAT 97
[2024-01-28 15:53] LABS: Glucose, Whole Blood 499 mg/dL (60-115)
[2024-01-28] MEDS: Insulin Regular, Human 100 UNIT/ML 10 ML VIAL IVPUSH (16:30)
[2024-01-28] MEDS: ondansetron HCL 4 MG/2 ML VIAL IVPUSH (16:30)
[2024-01-28] MEDS: 0.9 % Sodium Chloride 1,000 ML 999 ML IVCONT (16:30)
[2024-01-28] MEDS: Simethicone 80 MG TAB.CHEW 160 MG PO (16:32)
[2024-01-28 16:55] LABS: Beta-Hydroxybutyrate 0.08 mmol/L (0.02-0.27)
[2024-01-28 17:07] LABS: Estimated Average Glucose 223 mg/dL; Hemoglobin A1C 312.6462 umol/L; Hemoglobin A1c % 9.4 % (<6.0); Total Hemoglobin (HGBA1C) 3952.4651 umol/L
[2024-01-28 17:10] LABS: Thyroid Stimulating Hormone 2.74 uIU/mL (0.32-4.0)
[2024-01-28 17:49] LABS: Glucose, Whole Blood 332 mg/dL (60-115)
--- NOTE | 2024-01-28 17:50 | PC.NURSE ---
patient ambulatory with steady gait to bathroom, IV still running at this time
[2024-01-28 19:23] VITALS: BP 128/74; PULSE 78; RESP 18; TEMP 36.5; O2SAT 96
[2024-01-28 19:27] LABS: Glucose, Whole Blood 280 mg/dL (60-115)
[2024-01-28 20:11] VITALS: BP 128/74; PULSE 78; RESP 18; TEMP 36.5; O2SAT 96
[2024-01-28] MEDS: Ibuprofen 800 MG TABLET PO (20:16)
== END 2024-01-28 20:20 | disposition home or self-care (01) ==
PROVIDERS: Physician Assistant; Emergency Provider Emergency Medicine
DX: E11.9 Type 2 diabetes mellitus without complications (principal); I10 Essential (primary) hypertension; R42 Dizziness and giddiness; H53.8 Other visual disturbances; R51.9 Headache, unspecified; K21.9 Gastro-esophageal reflux disease without esophagitis; Z79.899 Other long term (current) drug therapy
CPT/HCPCS: 36415; 70450; 80053; 82010; 82947; 83036; 83880; 84443; 84484; 85025; 85610; 85730; 93005; 96361; 96374; 96375; 99285; J2405

== ENCOUNTER → 2024-01-28 13:20 | Outpatient (BNV) | payer SELFPAY | PROVIDERS: Visit Provider Radiology Diagnostic Radiology | DX: R51.9 Headache, unspecified (principal) | CPT/HCPCS: 70450 ==

== ENCOUNTER 2024-03-09 22:48 | Emergency (ER) | payer OTHER, SELFPAY ==
--- NOTE | 2024-03-09 | ECG_ITS ---
Test Reason : CHEST DISCOMFORT Blood Pressure : / mmHG Vent. Rate : 089 BPM Atrial Rate : 089 BPM P-R Int : 152 ms QRS Dur : 092 ms QT Int : 364 ms P-R-T Axes : 052 011 022 degrees QTc Int : 442 ms Normal sinus rhythm Moderate voltage criteria for LVH, may be normal variant ( R in aVL , [place] product ) Nonspecific T wave abnormality Abnormal ECG When compared with ECG of 28-JAN-2024 13:41, No significant change was found Referred By: Generic ED Physician Electronically Signed By:MARISABEL GONZALEZ
[2024-03-09 23:08] VITALS: BP 168/110; PULSE 87; RESP 18; TEMP 36.9; O2SAT 95; BMI 45.3
[2024-03-09 23:29] LABS: Glucose, Whole Blood 308 mg/dL (60-115)
[2024-03-09 23:32] LABS: MANUAL DIFF FLAG NO
[2024-03-09 23:33] LABS: Basophils Absolute Auto 0.1 X10*3/uL (0.0-0.2); Eosinophils Absolute Auto 0.2 X10*3/uL (0.0-0.4); Hemoglobin 15.7 g/dl (14.0-18.0); Imm Gran Abs Auto 0.01 X10*3/uL (0.00-0.03); Imm Gran Pct Auto 0.1 % (0.0-0.4); Lymphocytes Absolute Auto 1.9 X10*3/uL (1.2-4.9); Lymphocytes Percent Auto 27.2 % (20-40); Mean Corpuscular HGB Conc 36.5 g/dl (31.0-36.0); Mean Corpuscular Hemoglobin 28.3 pg (27.0-33.0); Mean Corpuscular Volume 77.6 fL (80.0-98.0); Mean Platelet Volume 9.4 fL (9.4-12.4); Monocytes Absolute Auto 0.5 X10*3/uL (0.1-1.2); Monocytes Percent Auto 7.4 % (2-11); Neutrophils Absolute Auto 4.3 x10*3/uL (2.0-8.3); Neutrophils Percent Auto 61.3 % (45-73); Platelet Count 310 X10*3/uL (160-400); Red Blood Count 5.54 X10*6/uL (4.60-5.80); Red Cell Distribution Width 12.6 % (11.0-16.0)
[2024-03-09 23:47] LABS: Alanine Aminotransferase 103 U/L (0-40); Alkaline Phosphatase 54 U/L (39-117); Anion Gap 12 (12-20); Aspartate Amino Transferase 52 U/L (5-37); Bilirubin Total 0.5 mg/dL (0.0-1.0); Blood Urea Nitrogen 12 mg/dL (9-16); Calcium 9.2 mg/dL (8.4-10.2); Carbon Dioxide 23 mmol/L (22-29); Chloride 103 mmol/L (96-108); Creatinine Clr Calc Pharmacy 150.2; Estimated Glomerular Filt Rate > 60; Glucose Random 307 mg/dL (60-115); Potassium 3.8 mmol/L (3.3-5.1); Sodium 134 mmol/L (135-145); Total Protein 7.1 g/dL (6.5-8.0)
[2024-03-10 00:09] LABS: Influenza A PCR NEGATIVE (Negative); Influenza B PCR NEGATIVE (Negative); Resp Syncy Virus RNA Qual PCR NEGATIVE (Negative); SARS COV2 PCR INHOUSE NEGATIVE (Negative)
[2024-03-10 00:10] VITALS: BP 142/87; PULSE 75; RESP 20; TEMP 36.4; O2SAT 95
[2024-03-10 00:31] LABS: Glucose, Whole Blood 295 mg/dL (60-115)
--- NOTE | 2024-03-10 00:31 | ED.GENADULT ---
HPI - General Adult General Chief complaint: General Medical Stated complaint: hypertension, high blood surgar Time Seen by Provider: 03/10/24 00:20 Source: patient Mode of arrival: ambulatory Limitations: no limitations History of Present Illness ED Provider: HPI narrative: Patient's history of hypertension diabetes noncompliant to his medication because of insurance and PCP has not taken any medication for a while comes here as blood sugar was elevated and blood pressure was on arrival 168/110 during stay improved to 142/87 without any medication Related Data Previous Rx's ?Medication ?Instructions ?Recorded meclizine 25 mg tablet 25 mg PO DAILY dizziness #20 tabs 04/14/20 acetaminophen 325 mg tablet 325 mg PO QID PRN pain #90 tabs 03/31/21 (Tylenol) cyclobenzaprine 5 mg tablet 5 mg PO BEDTIME PRN muscle spasm 03/31/21 #20 tabs ibuprofen 400 mg tablet 400 mg PO Q6H PRN Pain #60 tabs 03/31/21 lidocaine 5 % topical patch 1 patch topical DAILY back pain 03/31/21 #30 ea pantoprazole 40 mg tablet,delayed 40 mg PO DAILY #14 tabs 09/18/22 release (Protonix) aluminum-mag hydroxide-simethicone 5 ml PO 5XD PRN dyspepsia #30 mL 10/07/22 200 mg-200 mg-20 mg/5 mL oral susp (Maalox Advanced) amlodipine 10 mg tablet 10 mg PO DAILY 30 days #30 tabs 10/07/22 famotidine 20 mg tablet (Pepcid) 20 mg PO DAILY #14 tabs 10/07/22 pantoprazole 40 mg tablet,delayed 40 mg PO DAILY #20 tabs 11/06/22 release (Protonix) ibuprofen 400 mg tablet 400 mg PO TID PRN fever or pain 12/30/22 #30 tabs ondansetron 4 mg disintegrating 4 mg PO Q6-8H PRN nausea and 12/30/22 tablet vomiting #14 tabs oxycodone 5 mg tablet 5 mg PO Q6H PRN pain #14 tabs 12/30/22 ondansetron 4 mg disintegrating 4 mg PO Q8H PRN nausea and 02/07/23 tablet vomiting #10 tabs pantoprazole 40 mg tablet,delayed 40 mg PO DAILY #14 tabs 02/07/23 release morphine 15 mg immediate release 15 mg PO Q6H PRN pain #10 tabs 02/21/23 tablet ondansetron 4 mg disintegrating 4 mg PO Q8H PRN nausea and 02/21/23 tablet vomiting #20 tabs prednisone 20 mg tablet 40 mg (2 x 20 mg) PO DAILY 5 days 02/21/23 #10 tabs amlodipine 5 mg tablet 5 mg PO DAILY #30 tabs 09/14/23 cyclobenzaprine 10 mg tablet 10 mg PO TID PRN muscle spasm #20 09/14/23 tabs lidocaine 5 % topical patch 1 patch topical DAILY #30 ea 09/14/23 amlodipine 10 mg tablet 10 mg PO DAILY #90 tabs 01/28/24 metformin 500 mg tablet 500 mg PO BID #90 tabs 01/28/24 ondansetron HCl 4 mg tablet 4 mg PO Q6H PRN nausea and 01/28/24 vomiting #14 tabs simethicone 180 mg capsule 180 mg PO BID PRN abdominal 01/28/24 distention #30 caps losartan 50 mg-hydrochlorothiazide 1 tab PO DAILY #90 tabs 03/10/24 12.5 mg tablet metformin 850 mg tablet 850 mg PO BID #180 tabs 03/10/24 Allergies Allergy/AdvReac Type Severity Reaction Status Date / Time No Known Allergies Allergy Verified 03/09/24 23:14 Review of Systems Review of Systems: Yes all other systems are reviewed and are negative [facility] Past Medical History Medical History GERD (gastroesophageal reflux disease) HTN (hypertension) Gallstones Social History Social History Alcohol intake: current Alcohol intake frequency: holidays/special occasions only Alcohol type: hard liquor Patient Tobacco Use Status: Never used Tobacco Smoked in Last 30 Days: No Use of substances other than those prescribed or required for medical reasons: No Substance Use Type: Marijuana Advance Directives: No Advance Directives Information Provided: Yes Physical Exam ED Vital Signs: Vital Signs - 24 hr 03/09/24 23:08 03/10/24 00:10 03/10/24 00:58 Temperature 98.4 F 97.6 F 97.6 F Pulse Rate 87 75 75 Respiratory Rate 18 20 20 Blood Pressure 168/110 H 142/87 H 142/87 H Pulse Oximetry 95 95 95 Oxygen Delivery Method Room Air Room Air Room Air BMI result Body Mass Index 45.3 Appearance: Alert. Oriented X3. No acute distress. Obese Eyes: PERRLA, No Nystagmus ENT: Pharynx normal. Oral Mucosa moist Neck: Normal inspection. Neck supple. CVS: Normal heart rate and rhythm. Pulses normal. Respiratory: No respiratory distress. Equal air entry bilateral, no wheezing/rales/rhonchi Abdomen: Soft and nontender. Bowel sounds are present, no mass palpable, no CVA tenderness Skin: Skin warm and dry. Normal skin color. Normal skin turgor. Extremities: No lower extremity edema. No calf tenderness Neuro: Oriented X 3. No motor deficit. No sensory deficit.No cerebellar signs , cranial nerves II-XII intact Medications Administered Discontinued Medications Generic Name Dose Route Start Last Admin Trade Name Freq PRN Reason Stop Dose Admin Insulin Human Lispro 6 unit 03/10/24 00:43 03/10/24 00:52 Insulin Lispro 100 Unit/Ml 3 Ml Vial SUBCUT 03/10/24 00:44 6 unit ONCE ONE Administration Metformin HCl 500 mg 03/10/24 00:44 03/10/24 00:52 Metformin Hcl 500 Mg Tablet PO 03/10/24 00:45 500 mg ONCE ONE Administration Medical Decision Making Medical Decision Making [facility] Narrative: Patient re-educated about diabetes and hypertension importance of taking the medication and diet control, prescription for metformin and losartan was given advised to go to [facility] which has for door or plan for the month supply for these medications 3 months rx with 1 refill was given Lab Data [facility] Lab Attestation statement: I reviewed the patient's lab results. 03/09/24 23:28 03/09/24 23:28 Labs: Lab Results 03/09/24 03/09/24 03/10/24 Range/Units 23:25 23:28 00:26 WBC 7.0 (4.8-10.8) X10*3/uL RBC 5.54 (4.60-5.80) X10*6/uL Hgb 15.7 (14.0-18.0) g/dl Hct 43.0 (42.0-52.0) % MCV 77.6 L (80.0-98.0) fL MCH 28.3 (27.0-33.0) pg MCHC 36.5 H (31.0-36.0) g/dl RDW 12.6 (11.0-16.0) % Plt Count 310 (160-400) X10*3/uL MPV 9.4 (9.4-12.4) fL Immature Gran % (Auto) 0.1 (0.0-0.4) % Neut % (Auto) 61.3 (45-73) % Lymph % (Auto) 27.2 (20-40) % Stephenson % (Auto) 7.4 (2-11) % Eos % (Auto) 3.0 (0-4) % Baso % (Auto) 1.0 (0-2) % Lymph # (Auto) 1.9 (1.2-4.9) X10*3/uL Stephenson # (Auto) 0.5 (0.1-1.2) X10*3/uL Eos # (Auto) 0.2 (0.0-0.4) X10*3/uL Baso # (Auto) 0.1 (0.0-0.2) X10*3/uL Abs Immat Gran (auto) 0.01 (0.00-0.03) X10*3/uL Absolute Neuts (auto) 4.3 (2.0-8.3) x10*3/uL Absolute Nucleated RBC 0.000 (0.0-0.012) X10*3/uL Nucleated RBC % (auto) 0.0 (0.0-0.2) /100WBC Sodium 134 L (135-145) mmol/L Potassium 3.8 (3.3-5.1) mmol/L Chloride 103 (96-108) mmol/L Carbon Dioxide 23 (22-29) mmol/L Anion Gap 12 (12-20) BUN 12 (9-16) mg/dL Creatinine 1.10 (0.5-1.4) mg/dL Estim Creat Clear Calc 150.2 Estimated GFR > 60 POC Glucose 308 H 295 H (60-115) mg/dL Random Glucose 307 H (60-115) mg/dL Calcium 9.2 (8.4-10.2) mg/dL Total Bilirubin 0.5 (0.0-1.0) mg/dL AST 52 H (5-37) U/L ALT 103 H (0-40) U/L Alkaline Phosphatase 54 (39-117) U/L Total Protein 7.1 (6.5-8.0) g/dL Albumin 4.0 (3.5-5.0) g/dL Influenza Type A (PCR) NEGATIVE (Negative) Influenza Type B (PCR) NEGATIVE (Negative) RSV RNA Qual (PCR) NEGATIVE (Negative) SARS-CoV-2 RNA (RT-PCR) NEGATIVE (Negative) Discharge Plan Discharge Clinical Impression: Diabetes mellitus, Hypertension Patient Disposition: Home, Self-Care Instructions: Chronic Hypertension (ED), Type 2 Diabetes Management for Adults (ED) Additional Instructions: control as advised Take medication for blood pressure and diabetes as prescribed Follow with your PCP Prescriptions: New metformin 850 mg tablet 850 mg PO BID Qty: 180 1RF losartan-hydrochlorothiazide 50-12.5 mg tablet 1 tab PO DAILY Qty: 90 1RF No Action meclizine 25 mg tablet 25 mg PO DAILY Qty: 20 0RF acetaminophen [Tylenol] 325 mg tablet 325 mg PO QID PRN (Reason: pain) Qty: 90 0RF lidocaine 5 % adhesive patch,medicated 1 patch topical DAILY Qty: 30 0RF Rx Instructions: leave on most painful area for up to 12 hrs ibuprofen 400 mg tablet 400 mg PO Q6H PRN (Reason: Pain) Qty: 60 0RF cyclobenzaprine 5 mg tablet 5 mg PO BEDTIME PRN (Reason: muscle spasm) Qty: 20 0RF pantoprazole [Protonix] 40 mg tablet,delayed release (DR/EC) 40 mg PO DAILY Qty: 14 0RF amlodipine 10 mg tablet 10 mg PO DAILY 30 Days Qty: 30 0RF alum-mag hydroxide-simeth [Maalox Advanced] 200-200-20 mg/5 mL suspension 5 ml PO 5XD PRN (Reason: dyspepsia) Qty: 30 0RF Rx Instructions: administer between meals and at bedtime famotidine [Pepcid] 20 mg tablet 20 mg PO DAILY Qty: 14 0RF pantoprazole 40 mg tablet,delayed release (DR/EC) 40 mg PO DAILY Qty: 14 0RF ondansetron 4 mg tablet,disintegrating 4 mg PO Q8H PRN (Reason: nausea and vomiting) Qty: 10 0RF prednisone 20 mg tablet 40 mg PO DAILY 5 Days Qty: 10 0RF morphine 15 mg tablet 15 mg PO Q6H PRN (Reason: pain) Qty: 10 0RF Rx Instructions: partial fill okay; Partial Fill upon patient request. ondansetron 4 mg tablet,disintegrating 4 mg PO Q8H PRN (Reason: nausea and vomiting) Qty: 20 0RF pantoprazole [Protonix] 40 mg tablet,delayed release (DR/EC) 40 mg PO DAILY Qty: 20 0RF ibuprofen 400 mg tablet 400 mg PO TID PRN (Reason: fever or pain) Qty: 30 0RF ondansetron 4 mg tablet,disintegrating 4 mg PO Q6-8H PRN (Reason: nausea and vomiting) Qty: 14 0RF oxycodone 5 mg tablet 5 mg PO Q6H PRN (Reason: pain) Qty: 14 0RF Rx Instructions: Patient may request partial refill; Partial Fill upon patient request. amlodipine 5 mg tablet 5 mg PO DAILY Qty: 30 1RF cyclobenzaprine 10 mg tablet 10 mg PO TID PRN (Reason: muscle spasm) Qty: 20 0RF lidocaine 5 % adhesive patch,medicated 1 patch topical DAILY Qty: 30 0RF Rx Instructions: leave on most painful area for up to 12 hrs metformin 500 mg tablet 500 mg PO BID Qty: 90 0RF amlodipine 10 mg tablet 10 mg PO DAILY Qty: 90 0RF ondansetron HCl 4 mg tablet 4 mg PO Q6H PRN (Reason: nausea and vomiting) Qty: 14 0RF simethicone 180 mg capsule 180 mg PO BID PRN (Reason: abdominal distention) Qty: 30 0RF Interventions: ED Discharge Assessment Last Done: 03/10/24 00:58 Discharge Date/Time: 03/10/24 00:59 Print Language: Mohawk
[2024-03-10] MEDS: metFORMIN HCl 500 MG TABLET PO (00:52)
[2024-03-10] MEDS: Insulin Lispro 100 UNIT/ML 3 ML VIAL 6 UNIT SUBCUT (00:52)
[2024-03-10 00:58] VITALS: BP 142/87; PULSE 75; RESP 20; TEMP 36.4; O2SAT 95
== END 2024-03-10 00:59 | disposition home or self-care (01) ==
PROVIDERS: Emergency Provider Internal Medicine
DX: E11.65 Type 2 diabetes mellitus with hyperglycemia (principal); R07.89 Other chest pain; I10 Essential (primary) hypertension; Z79.84 Long term (current) use of oral hypoglycemic drugs; Z03.818 Encounter for observation for suspected exposure to other biological agents ruled out
CPT/HCPCS: 0241U; 36415; 80053; 82947; 85025; 93005; 96372; 99284

== ENCOUNTER → 2024-03-09 23:22 | Outpatient (BNV) | payer SELFPAY | PROVIDERS: Emergency Provider Internal Medicine; Visit Provider Internal Medicine | DX: R94.31 Abnormal electrocardiogram [ECG] [EKG] (principal) | CPT/HCPCS: 93010 ==

== ENCOUNTER 2024-12-12 02:15 | Emergency (ER) | payer OTHER, SELFPAY ==
[2024-12-12 02:26] VITALS: BP 145/103; PULSE 118; RESP 18; TEMP 36.9; O2SAT 96; BMI 43.6
--- NOTE | 2024-12-12 03:12 | ED_ITS ---
HPI - Male Genitourinary General Chief complaint: Urogenital-Male Stated complaint: blood in urine Time Seen by Provider: 12/12/24 03:10 Source: patient Mode of arrival: ambulatory Limitations: no limitations History of Present Illness ED Provider: Dr. Ac HPI Narrative: 34-year-old male presented hospital today for penile pain and dysuria. Patient stated that he is in a new relationship. He has described some discharge from it and swelling of his foreskin. Related Data Previous Rx's ?Medication ?Instructions ?Recorded meclizine 25 mg tablet 25 mg PO DAILY dizziness #20 tabs 04/14/20 acetaminophen 325 mg tablet 325 mg PO QID PRN pain #90 tabs 03/31/21 (Tylenol) cyclobenzaprine 5 mg tablet 5 mg PO BEDTIME PRN muscle spasm 03/31/21 #20 tabs ibuprofen 400 mg tablet 400 mg PO Q6H PRN Pain #60 t abs 03/31/21 lidocaine 5 % topical patch 1 patch topical DAILY back pain 03/31/21 #30 ea pantoprazole 40 mg tablet,delayed 40 mg PO DAILY #14 t abs 09/18/22 release (Protonix) aluminum-mag hydroxide-simethicone 5 ml PO 5XD PRN dys pepsia #30 mL 10/07/22 200 mg-200 mg-20 mg/5 mL oral susp (Maalox Advanced) amlodipine 10 mg tablet 10 mg PO DAILY 30 days #30 t abs 10/07/22 famotidine 20 mg tablet (Pepcid) 20 mg PO DAILY #14 ta bs 10/07/22 pantoprazole 40 mg tablet,delayed 40 mg PO DAILY #20 t abs 11/06/22 release (Protonix) ibuprofen 400 mg tablet 400 mg PO TID PRN fever or p ain 12/30/22 #30 tabs ondansetron 4 mg disintegrating 4 mg PO Q6-8H PRN naus ea and 12/30/22 tablet vomiting #14 tabs oxycodone 5 mg tablet 5 mg PO Q6H PRN pain #14 tab s 12/30/22 ondansetron 4 mg disintegrating 4 mg PO Q8H PRN nausea and 02/07/23 tablet vomiting #10 tabs pantoprazole 40 mg tablet,delayed 40 mg PO DAILY #14 t abs 02/07/23 release morphine 15 mg immediate release 15 mg PO Q6H PRN pain #10 tabs 02/21/23 tablet ondansetron 4 mg disintegrating 4 mg PO Q8H PRN nausea and 02/21/23 tablet vomiting #20 tabs prednisone 20 mg tablet 40 mg (2 x 20 mg) PO DAILY 5 days 02/21/23 #10 tabs amlodipine 5 mg tablet 5 mg PO DAILY #30 tabs 09/13 cyclobenzaprine 10 mg tablet 10 mg PO TID PRN muscle s pasm #20 09/14/23 tabs lidocaine 5 % topical patch 1 patch topical DAILY #30 ea 09/14/23 amlodipine 10 mg tablet 10 mg PO DAILY #90 tabs 07/17 metformin 500 mg tablet 500 mg PO BID #90 tabs 01/27 ondansetron HCl 4 mg tablet 4 mg PO Q6H PRN nausea and 01/28/24 vomiting #14 tabs simethicone 180 mg capsule 180 mg PO BID PRN abdominal 01/28/24 distention #30 caps losartan 50 mg-hydrochlorothiazide 1 tab PO DAILY #90 tabs 03/10/24 12.5 mg tablet metformin 850 mg tablet 850 mg PO BID #180 tabs 02/23 09/16 clotrimazole 1 % topical ointment 1 appl topical BID # 56.7 grams 12/12/24 doxycycline hyclate 100 mg capsule 100 mg PO BID 7 day s #14 caps 12/12/24 Allergies Allergy/AdvReac Type Severity Reaction Status Date / Time No Known Allergies Allergy Verified 12/12/24 02:35 Review of Systems Review of Systems: Pertinent review of systems as mentioned in HPI. All other system otherwise negative. [facility] Past Medical History [facility] Narrative: Medical history as mentioned in HPI Medical History GERD (gastroesophageal reflux disease) HTN (hypertension) Gallstones Social History Social History Alcohol intake: current Alcohol intake frequency: holidays/special occasions only Alcohol type: hard liquor Patient Tobacco Use Status: Never used Tobacco Substance Use Type: Marijuana Advance Directives: No Physical Exam Exam: Exam: General: Pleasant, no distress, interacting appropriately Head: Normacephalic, atraumatic : Patient has balanitis of the foreskin of his penis. Neurological: Awake and alert, no facial droop noted Skin: Warm and dry Psychiatric: Appropriate mood and thoughts Vital Signs: Vital Signs: Last Vital Signs Temp 98.4 F 12/12/24 02:26 Pulse 118 H 12/12/24 02:26 Resp 18 12/12/24 02:26 BP 145/103 H 12/12/24 02:26 Pulse Ox 96 12/12/24 02:26 O2 Del Method Room Air 12/12/24 02:26 BMI result Body Mass Index 43.6 Medical Decision Making Medical Decision Making MDM Narrative: 34-year-old male presented hospital today for evaluation of penile foreskin swelling. Patient has balanitis of the foreskin of his penis. Patient is requesting STD exam. Urine will be sent off for STD check. We will plan to cover patient with IM ceftriaxone and doxycycline. Course of doxycycline will be prescribed to the patient. We will plan to send the patient with the clotrimazole cream as well. Instruct patient to keep his foreskin clean and dry. Patient agrees and understands this plan In-person biofuels operations manager was used for this encounter. Differential Diagnosis Differential Diagnoses: The differential diagnosis associated with the presentation includes Balanitis, STD Prescription Management I considered prescription management with: Antibiotic Discharge Plan Discharge Clinical Impression: Balanitis Patient Disposition: Home, Self-Care Instructions: Balanitis (ED) Prescriptions: New clotrimazole 1 % ointment 1 appl topical BID Qty: 56.7 0RF doxycycline hyclate 100 mg capsule 100 mg PO BID 7 Days Qty: 14 0RF No Action meclizine 25 mg tablet 25 mg PO DAILY Qty: 20 0RF acetaminophen [Tylenol] 325 mg tablet 325 mg PO QID PRN (Reason: pain) Qty: 90 0RF lidocaine 5 % adhesive patch,medicated 1 patch topical DAILY Qty: 30 0RF Rx Instructions: leave on most painful area for up to 12 hrs ibuprofen 400 mg tablet 400 mg PO Q6H PRN (Reason: Pain) Qty: 60 0RF cyclobenzaprine 5 mg tablet 5 mg PO BEDTIME PRN (Reason: muscle spasm) Qty: 20 0RF pantoprazole [Protonix] 40 mg tablet,delayed release (DR/EC) 40 mg PO DAILY Qty: 14 0RF amlodipine 10 mg tablet 10 mg PO DAILY 30 Days Qty: 30 0RF alum-mag hydroxide-simeth [Maalox Advanced] 200-200-20 mg/5 mL suspension 5 ml PO 5XD PRN (Reason: dyspepsia) Qty: 30 0RF Rx Instructions: administer between meals and at bedtime famotidine [Pepcid] 20 mg tablet 20 mg PO DAILY Qty: 14 0RF pantoprazole 40 mg tablet,delayed release (DR/EC) 40 mg PO DAILY Qty: 14 0RF ondansetron 4 mg tablet,disintegrating 4 mg PO Q8H PRN (Reason: nausea and vomiting) Qty: 10 0RF prednisone 20 mg tablet 40 mg PO DAILY 5 Days Qty: 10 0RF morphine 15 mg tablet 15 mg PO Q6H PRN (Reason: pain) Qty: 10 0RF Rx Instructions: partial fill okay; Partial Fill upon patient request. ondansetron 4 mg tablet,disintegrating 4 mg PO Q8H PRN (Reason: nausea and vomiting) Qty: 20 0RF pantoprazole [Protonix] 40 mg tablet,delayed release (DR/EC) 40 mg PO DAILY Qty: 20 0RF ibuprofen 400 mg tablet 400 mg PO TID PRN (Reason: fever or pain) Qty: 30 0RF ondansetron 4 mg tablet,disintegrating 4 mg PO Q6-8H PRN (Reason: nausea and vomiting) Qty: 14 0RF oxycodone 5 mg tablet 5 mg PO Q6H PRN (Reason: pain) Qty: 14 0RF Rx Instructions: Patient may request partial refill; Partial Fill upon patient request. amlodipine 5 mg tablet 5 mg PO DAILY Qty: 30 1RF cyclobenzaprine 10 mg tablet 10 mg PO TID PRN (Reason: muscle spasm) Qty: 20 0RF lidocaine 5 % adhesive patch,medicated 1 patch topical DAILY Qty: 30 0RF Rx Instructions: leave on most painful area for up to 12 hrs metformin 500 mg tablet 500 mg PO BID Qty: 90 0RF amlodipine 10 mg tablet 10 mg PO DAILY Qty: 90 0RF ondansetron HCl 4 mg tablet 4 mg PO Q6H PRN (Reason: nausea and vomiting) Qty: 14 0RF simethicone 180 mg capsule 180 mg PO BID PRN (Reason: abdominal distention) Qty: 30 0RF metformin 850 mg tablet 850 mg PO BID Qty: 180 1RF losartan-hydrochlorothiazide 50-12.5 mg tablet 1 tab PO DAILY Qty: 90 1RF Print Language: Thai
[2024-12-12] MEDS: cefTRIAXone sodium 500 MG, Lidocaine HCl 1 % MPF 1 ML IM (04:20)
[2024-12-12 04:22] VITALS: BP 145/103; PULSE 118; RESP 18; TEMP 36.9; O2SAT 96
[2024-12-12 04:25] LABS: Appearance Urine Clear; Glucose Urine UA >=1000 mg/dL (Negative); PH 5.5 (5.0-9.0); Specific Gravity - Urine >= 1.030 (1.005-1.025); UMIC TRIGGER UACC YES
[2024-12-12 06:15] LABS: CT PCR Urine NOT DETECTED (Not Detect.); NG PCR Urine NOT DETECTED (Not Detect.)
== END 2024-12-12 04:22 | disposition home or self-care (01) ==
PROVIDERS: Emergency Provider Student in an Organized Health Care Education/Training Program
DX: N48.1 Balanitis (principal); R31.9 Hematuria, unspecified; R36.9 Urethral discharge, unspecified; R30.0 Dysuria; N48.89 Other specified disorders of penis; Z79.899 Other long term (current) drug therapy; Z20.2 Contact with and (suspected) exposure to infections with a predominantly sexual mode of transmission
CPT/HCPCS: 81001; 87491; 87591; 96372; 99282; 99284; J0696; J2003

== ENCOUNTER 2024-12-16 08:38 | Emergency (ER) | payer SELFPAY ==
[2024-12-16] VITALS (8 sets, daily range): BP systolic 172–204; BP diastolic 107–122; PULSE 85–95; RESP 16–20; TEMP 36.6; O2SAT 94–96; BMI 40.6
--- NOTE | ~2024-12-16 | XR_ITS ---
EXAMINATION: XR CHEST CLINICAL INFORMATION: chest pain COMPARISON: 03/31/2021. TECHNIQUE: Frontal view of the chest was obtained. FINDINGS: The cardiac, hilar, and mediastinal contours are normal. The lungs are clear bilaterally. No pneumothorax or effusion. No focal osseous or soft tissue abnormality. XR/XR chest 1V IMPRESSION: No active pulmonary disease. Electronically signed by: Filippo Acosta MD 12/16/2024 09:29 AM EDT
--- NOTE | 2024-12-16 08:39 | ECG_ITS ---
Test Reason : CP Blood Pressure : */* mmHG Vent. Rate : 98 BPM Atrial Rate : 98 BPM P-R Int : 148 ms QRS Dur : 88 ms QT Int : 346 ms P-R-T Axes : 51 -1 43 degrees QTcB Int : 441 ms Normal sinus rhythm Moderate voltage criteria for LVH, may be normal variant ( R in aVL , [place] product ) Borderline ECG When compared with ECG of 09-Mar-2024 23:22, No significant change was found Referred By: Generic ED Physician Electronically Signed By: Aurelio Garner
--- NOTE | 2024-12-16 09:20 | ED.CHESTPAIN ---
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 He is here with c/o eating crispy pork on and now since then has R sided chest pain worse with eating. He feels slightly short of breath. [place] he had a fever as well at one point. He did not report GIB symptoms. He has no cough. His friend gave him an antacid but it did not help. He has no recent travel or procedures. No headaches, weakness, numbness. MD complaint: chest pain Onset (ago): day(s) (6) Timing of current episode: episodic Prior episodes: Yes Onset: during rest Pain location: right chest Pain radiation: none Severity: moderate Quality: sharp Relieving factors: nothing Exacerbating factors: eating Context: non compliance with medication and other Associated symptoms: dyspnea and fever Treatment prior to arrival: none Related Data Previous Rx's ?Medication ?Instructions ?Recorded meclizine 25 mg tablet 25 mg PO DAILY dizziness #20 tabs 04/14/20 acetaminophen 325 mg tablet 325 mg PO QID PRN pain #90 tabs 03/31/21 (Tylenol) cyclobenzaprine 5 mg tablet 5 mg PO BEDTIME PRN muscle spasm 03/31/21 #20 tabs ibuprofen 400 mg tablet 400 mg PO Q6H PRN Pain #60 tabs 03/31/21 lidocaine 5 % topical patch 1 patch topical DAILY back pain 03/31/21 #30 ea pantoprazole 40 mg tablet,delayed 40 mg PO DAILY #14 tabs 09/18/22 release (Protonix) aluminum-mag hydroxide-simethicone 5 ml PO 5XD PRN dyspepsia #30 mL 10/07/22 200 mg-200 mg-20 mg/5 mL oral susp (Maalox Advanced) amlodipine 10 mg tablet 10 mg PO DAILY 30 days #30 tabs 10/07/22 famotidine 20 mg tablet (Pepcid) 20 mg PO DAILY #14 tabs 10/07/22 pantoprazole 40 mg tablet,delayed 40 mg PO DAILY #20 tabs 11/06/22 release (Protonix) ibuprofen 400 mg tablet 400 mg PO TID PRN fever or pain 12/30/22 #30 tabs ondansetron 4 mg disintegrating 4 mg PO Q6-8H PRN nausea and 12/30/22 tablet vomiting #14 tabs oxycodone 5 mg tablet 5 mg PO Q6H PRN pain #14 tabs 12/30/22 ondansetron 4 mg disintegrating 4 mg PO Q8H PRN nausea and 02/07/23 tablet vomiting #10 tabs pantoprazole 40 mg tablet,delayed 40 mg PO DAILY #14 tabs 02/07/23 release morphine 15 mg immediate release 15 mg PO Q6H PRN pain #10 tabs 02/21/23 tablet ondansetron 4 mg disintegrating 4 mg PO Q8H PRN nausea and 02/21/23 tablet vomiting #20 tabs prednisone 20 mg tablet 40 mg (2 x 20 mg) PO DAILY 5 days 02/21/23 #10 tabs amlodipine 5 mg tablet 5 mg PO DAILY #30 tabs 09/14/23 cyclobenzaprine 10 mg tablet 10 mg PO TID PRN muscle spasm #20 09/14/23 tabs lidocaine 5 % topical patch 1 patch topical DAILY #30 ea 09/14/23 amlodipine 10 mg tablet 10 mg PO DAILY #90 tabs 01/28/24 metformin 500 mg tablet 500 mg PO BID #90 tabs 01/28/24 ondansetron HCl 4 mg tablet 4 mg PO Q6H PRN nausea and 01/28/24 vomiting #14 tabs simethicone 180 mg capsule 180 mg PO BID PRN abdominal 01/28/24 distention #30 caps losartan 50 mg-hydrochlorothiazide 1 tab PO DAILY #90 tabs 03/10/24 12.5 mg tablet metformin 850 mg tablet 850 mg PO BID #180 tabs 03/10/24 clotrimazole 1 % topical ointment 1 appl topical BID #56.7 grams 12/12/24 doxycycline hyclate 100 mg capsule 100 mg PO BID 7 days #14 caps 12/12/24 amlodipine 10 mg tablet 10 mg PO DAILY #90 tabs 12/16/24 hydrochlorothiazide 12.5 mg tablet 12.5 mg PO DAILY #90 tabs 12/16/24 omeprazole 20 mg capsule,delayed 20 mg PO DAILY #90 caps 12/16/24 release Allergies Allergy/AdvReac Type Severity Reaction Status Date / Time No Known Allergies Allergy Verified 12/16/24 08:55 Review of Systems Review of Systems: Constitutional : No Weight loss, pos Fever, No Chills ENT/Mouth : No sore throat, No Rhinorrhea Eyes: No Eye Pain, No Swelling Cardiovascular : pos Chest Pain, pos SOB Respiratory : No Cough, No Sputum Gastrointestinal : no Nausea, No Vomiting, No Diarrhea, No abdominal Pain, No Hematochezia, No Melena Skin : No Skin Lesions, No rash Neuro : No Weakness, No Numbness, No Dizziness, No Headache All other systems reviewed and are negative Yes all other systems are reviewed and are negative [facility] Past Medical History Attestation statement: The following information was validated with the patient. Source: old records reviewed Medical History GERD (gastroesophageal reflux disease) HTN (hypertension) Gallstones Social History Social History Alcohol intake: current Alcohol intake frequency: holidays/special occasions only Alcohol type: hard liquor Patient Tobacco Use Status: Never used Tobacco Use of substances other than those prescribed or required for medical reasons: Yes Substance Use Type: Marijuana Substance Use Type Other:: vape Advance Directives: No Advance Directives Information Provided: No Do you have a plan to hurt others: No Plan Physical Exam Vital Signs: Vital Signs: Last Vital Signs Temp 97.8 F 12/16/24 09:29 Pulse 85 12/16/24 10:13 Resp 16 12/16/24 10:13 BP 172/107 H 12/16/24 10:15 Pulse Ox 96 12/16/24 10:13 O2 Del Method Room Air 12/16/24 10:13 BMI result Body Mass Index 40.6 Appearance: Alert. Oriented X3. No acute distress. Eyes: Pupils equal, round and reactive to light. ENT: Pharynx normal. Neck: Normal inspection. Neck supple. CVS: Normal heart rate and rhythm. Pulses normal. Respiratory: No respiratory distress. Breath sounds normal. Abdomen: Soft and nontender. Skin: Skin warm and dry. Normal skin color. Normal skin turgor. Extremities: No lower extremity edema. No calf ttp Neuro: Oriented X 3. No motor deficit. No sensory deficit. CN2-12 intact Medications Administered Discontinued Medications Generic Name Dose Route Start Last Admin Trade Name Prashanth PRN Reason Stop Dose Admin Al Hydroxide/Mg Hydroxide 15 ml 12/16/24 09:31 12/16/24 09:36 Magnesium Hydrox/Alum Hydrox 30 Ml Oral.Susp PO 12/16/24 09:32 15 ml ONCE ONE Administration Amlodipine Besylate 10 mg 12/16/24 09:32 12/16/24 09:36 Amlodipine Besylate 10 Mg Tablet PO 12/16/24 09:33 10 mg ONCE ONE Administration Protocol Lidocaine HCl 15 ml 12/16/24 09:31 12/16/24 09:36 Lidocaine Hcl Viscous 2 % 15 Ml Solution MUCOUS MEM 12/16/24 09:32 15 ml ONCE ONE Administration Omeprazole 40 mg 12/16/24 09:31 12/16/24 09:36 Omeprazole 40 Mg Capsule.Dr PARDO 12/16/24 09:32 40 mg ONCE ONE Administration Medical Decision Making Medical Decision Making MDM Narrative: 34 yo male with PMH of GERD and HTN not on any medications, here with c/o R sided chest pain and dyspnea but pain is worse with eating and started after eating crispy pork (no bones). He has no GIB symptoms. He reports a subj fever. He is not compliant with HTN or GERD medications. Will start on BP meds and PPI. He has no signs of DVT, no recent travel or procedures. Low susp for VTE. I suspect this is more GI related will start on GI cocktail and PPI. Differential Diagnosis Differential Diagnoses: The differential diagnosis associated with the presentation includes GERD, esophageal abrasion, non compliance Admission/Observation Consideration of admission/observation: Escalation of care including admission/observation considered work up reassuring chronic HTN will place back on HCTZ and amlodipine Lab Data MDM Lab Attestation statement: I reviewed the patient's lab results. trop flat, LFTs at baseline 12/16/24 08:52 12/16/24 08:52 Labs: Lab Results 12/16/24 12/16/24 Range/Units 08:52 10:07 WBC 6.3 (4.8-10.8) X10*3/uL RBC 5.77 (4.60-5.80) X10*6/uL Hgb 16.3 (14.0-18.0) g/dl Hct 43.5 (42.0-52.0) % MCV 75.4 L (80.0-98.0) fL MCH 28.2 (27.0-33.0) pg MCHC 37.5 H (31.0-36.0) g/dl RDW 13.1 (11.0-16.0) % Plt Count 295 (160-400) X10*3/uL MPV 9.7 (9.4-12.4) fL Immature Gran % (Auto) 0.2 (0.0-0.4) % Neut % (Auto) 55.1 (45-73) % Lymph % (Auto) 32.3 (20-40) % [place] % (Auto) 8.9 (2-11) % Eos % (Auto) 2.4 (0-4) % Baso % (Auto) 1.1 (0-2) % Lymph # (Auto) 2.0 (1.2-4.9) X10*3/uL [place] # (Auto) 0.6 (0.1-1.2) X10*3/uL Eos # (Auto) 0.2 (0.0-0.4) X10*3/uL Baso # (Auto) 0.1 (0.0-0.2) X10*3/uL Abs Immat Gran (auto) 0.01 (0.00-0.03) X10*3/uL Absolute Neuts (auto) 3.5 (2.0-8.3) x10*3/uL Absolute Nucleated RBC 0.000 (0.0-0.012) X10*3/uL Nucleated RBC % (auto) 0.0 (0.0-0.2) /100WBC D-Dimer High Sensitivty < 150 NG/ML Sodium 135 (135-145) mmol/L Potassium 4.1 (3.3-5.1) mmol/L Chloride 99 (96-108) mmol/L Carbon Dioxide 27 (22-29) mmol/L Anion Gap 13 (12-20) BUN 16 (9-16) mg/dL Creatinine 1.12 (0.5-1.4) mg/dL Estim Creat Clear Calc 141.4 Estimated GFR > 60 Random Glucose 280 H (60-115) mg/dL Calcium 10.0 D (8.4-10.2) mg/dL Magnesium 1.7 (1.6-2.6) mg/dL Total Bilirubin 0.7 (0.0-1.0) mg/dL Direct Bilirubin 0.2 (0.0-0.5) mg/dL AST 55 H (5-37) U/L ALT 152 H (0-40) U/L Alkaline Phosphatase 59 (39-117) U/L Troponin I High Sens 9.1 (<3.5-35.0) ng/L Total Protein 7.5 (6.5-8.0) g/dL Albumin 4.5 (3.5-5.0) g/dL Lipase 32 (8-78) U/L Independent Interpretation I performed an independent interpretation of an: EKG and Plain X-Ray (normal ) Interpretation: Rate: 98 Rhythm: NSR [place]: normal , LVH Normal P waves. Normal REGLA. Normal QRS complex. ST T wave : normal no JUSTIN qTC: 441 prior studies: no acute ischemia The study has been interpreted contemporaneously by me. . Radiology Impression Discussion of test interpretation with radiology: I have reviewed the radiologist's reading. External Record Review External record reviewed: Outpatient record Prescription Management I considered prescription management with: Other Discharge Plan Discharge Clinical Impression: Atypical chest pain, Esophagitis Patient Disposition: Home, Self-Care Instructions: Chest Pain (ED), Esophagitis (ED) Additional Instructions: tylenol is okay but avoid nsaids bland diet for 72 hours take all medications as prescribed you need to see your doctor for your blood pressure control return for any worsening symptoms or concerns start blood pressure medications tomorrow if they continue to be high over 170 with symptoms seek care. hold blood pressure meds if top blood pressure number is under 90 Prescriptions: New amlodipine 10 mg tablet 10 mg PO DAILY Qty: 90 0RF omeprazole 20 mg capsule,delayed release(DR/EC) 20 mg PO DAILY Qty: 90 0RF hydrochlorothiazide 12.5 mg tablet 12.5 mg PO DAILY Qty: 90 0RF No Action meclizine 25 mg tablet 25 mg PO DAILY Qty: 20 0RF acetaminophen [Tylenol] 325 mg tablet 325 mg PO QID PRN (Reason: pain) Qty: 90 0RF lidocaine 5 % adhesive patch,medicated 1 patch topical DAILY Qty: 30 0RF Rx Instructions: leave on most painful area for up to 12 hrs ibuprofen 400 mg tablet 400 mg PO Q6H PRN (Reason: Pain) Qty: 60 0RF cyclobenzaprine 5 mg tablet 5 mg PO BEDTIME PRN (Reason: muscle spasm) Qty: 20 0RF pantoprazole [Protonix] 40 mg tablet,delayed release (DR/EC) 40 mg PO DAILY Qty: 14 0RF amlodipine 10 mg tablet 10 mg PO DAILY 30 Days Qty: 30 0RF alum-mag hydroxide-simeth [Maalox Advanced] 200-200-20 mg/5 mL suspension 5 ml PO 5XD PRN (Reason: dyspepsia) Qty: 30 0RF Rx Instructions: administer between meals and at bedtime famotidine [Pepcid] 20 mg tablet 20 mg PO DAILY Qty: 14 0RF pantoprazole 40 mg tablet,delayed release (DR/EC) 40 mg PO DAILY Qty: 14 0RF ondansetron 4 mg tablet,disintegrating 4 mg PO Q8H PRN (Reason: nausea and vomiting) Qty: 10 0RF prednisone 20 mg tablet 40 mg PO DAILY 5 Days Qty: 10 0RF morphine 15 mg tablet 15 mg PO Q6H PRN (Reason: pain) Qty: 10 0RF Rx Instructions: partial fill okay; Partial Fill upon patient request. ondansetron 4 mg tablet,disintegrating 4 mg PO Q8H PRN (Reason: nausea and vomiting) Qty: 20 0RF clotrimazole 1 % ointment 1 appl topical BID Qty: 56.7 0RF doxycycline hyclate 100 mg capsule 100 mg PO BID 7 Days Qty: 14 0RF pantoprazole [Protonix] 40 mg tablet,delayed release (DR/EC) 40 mg PO DAILY Qty: 20 0RF ibuprofen 400 mg tablet 400 mg PO TID PRN (Reason: fever or pain) Qty: 30 0RF ondansetron 4 mg tablet,disintegrating 4 mg PO Q6-8H PRN (Reason: nausea and vomiting) Qty: 14 0RF oxycodone 5 mg tablet 5 mg PO Q6H PRN (Reason: pain) Qty: 14 0RF Rx Instructions: Patient may request partial refill; Partial Fill upon patient request. amlodipine 5 mg tablet 5 mg PO DAILY Qty: 30 1RF cyclobenzaprine 10 mg tablet 10 mg PO TID PRN (Reason: muscle spasm) Qty: 20 0RF lidocaine 5 % adhesive patch,medicated 1 patch topical DAILY Qty: 30 0RF Rx Instructions: leave on most painful area for up to 12 hrs metformin 500 mg tablet 500 mg PO BID Qty: 90 0RF amlodipine 10 mg tablet 10 mg PO DAILY Qty: 90 0RF ondansetron HCl 4 mg tablet 4 mg PO Q6H PRN (Reason: nausea and vomiting) Qty: 14 0RF simethicone 180 mg capsule 180 mg PO BID PRN (Reason: abdominal distention) Qty: 30 0RF metformin 850 mg tablet 850 mg PO BID Qty: 180 1RF losartan-hydrochlorothiazide 50-12.5 mg tablet 1 tab PO DAILY Qty: 90 1RF Print Language: Pashto
[2024-12-16] MEDS: Magnesium Hydrox/Alum Hydrox 30 ML ORAL.SUSP 15 ML PO (09:36)
[2024-12-16] MEDS: Lidocaine HCl Viscous 2 % 15 ML SOLUTION MUCOUS MEM (09:36)
== END 2024-12-16 10:44 | disposition home or self-care (01) ==
PROVIDERS: Emergency Provider Emergency Medicine
DX: R07.89 Other chest pain (principal); K20.90 Esophagitis, unspecified without bleeding; R06.02 Shortness of breath; R50.9 Fever, unspecified; Z91.148 Patient's other noncompliance with medication regimen for other reason; Z79.899 Other long term (current) drug therapy
CPT/HCPCS: 36415; 71045; 80048; 80076; 83690; 83735; 84484; 85025; 85379; 93005; 99284; 99285

== ENCOUNTER → 2024-12-16 08:39 | Outpatient (BNV) | payer SELFPAY | PROVIDERS: Emergency Provider Emergency Medicine; Visit Provider Internal Medicine Cardiovascular Disease | DX: R07.89 Other chest pain (principal) | CPT/HCPCS: 93010 ==

== ENCOUNTER → 2024-12-16 08:42 | Outpatient (BNV) | payer SELFPAY | PROVIDERS: Emergency Provider Emergency Medicine; Visit Provider Radiology Diagnostic Radiology | DX: R07.9 Chest pain, unspecified (principal) | CPT/HCPCS: 71045 ==